=== PATIENT | female | born 1950 | race Caucasian/White ===

== ENCOUNTER 2020-03-11 17:40 | Inpatient (IN) | payer MEDICARE, SELFPAY ==
[2020-03-11] VITALS (7 sets, daily range): BP systolic 114–155; BP diastolic 54–79; PULSE 66–88; RESP 16–21; TEMP 36.2–36.8; O2SAT 95–100; BMI 56.5
--- NOTE | ~2020-03-11 | XR_ITS ---
EXAMINATION: XR chest 2V DATE: 03/11/2020 19:25 INDICATION: Shortness of breath. Lower limb edema. TECHNIQUE: frontal and lateral views of the chest were obtained. COMPARISON: Chest radiograph dated 01/01/2018 FINDINGS: Cardiomegaly. Mild interstitial and airspace opacities in the right mid to lower and left lower lung zones. Calcified nodules in the right midlung zone and calcified right hilar and mediastinal lymph no pee consistent with old granulomatous disease. No pleural effusion or pneumothorax. Mild thoracic spo ndylosis. Chronic T11 compression fracture. IMPRESSION: 1. Opacities in the right mid to lower and left lower lung zones which could represent asymmetric mil d pulmonary edema, pneumonia, atelectasis or some combination thereof. 2. Cardiomegaly. Reviewed, dictated and finalized at location A. IMPRESSION: 1. Opacities in the right mid to lower and left lower lung zones which could re present asymmetric mild pulmonary edema, pneumonia, atelectasis or some combina tion thereof. 2. Cardiomegaly.
--- NOTE | 2020-03-11 17:42 | ECG_ITS ---
Measurements Intervals [place] Rate: 70 P: AL: 0 QRS: 3 QRSD: 90 T: 19 QT: 360 QTc: 390 Interpretive Statements ATRIAL FIBRILLATION DELAYED PRECORDIAL R/S TRANSITION BORDERLINE T WAVE ABNORMALITY- INFERIOR LEADS BASELINE ARTIFACT- I, II, III, AVR ABNORMAL ECG Electronically Signed On 03-11-2020 19:45:32 CDT by Camron Jarrett D.O.
[2020-03-11 18:22] LABS: Basophils Absolute Auto 0.1 K/mm3 (0.0-0.1); Basophils Percent Auto 0.5 % (0.2-1.2); Eosinophils Absolute Auto 0.1 K/mm3 (0-0.3); Eosinophils Percent Auto 0.9 % (0-4.4); Hematocrit 35.4 % (37.0-47.0); Hemoglobin 12.1 g/dL (12.0-15.0); Immature Granulocyte Absolute 0.07 K/mm3 (0.00-0.031); Immature Granulocyte Percent A 0.6 % (0-0.5); Lymphocytes Absolute Auto 1.86 K/mm3 (0.9-3.2); Lymphocytes Percent Auto 16.6 % (18.3-44.2); Mean Corpuscular HGB Conc 34.2 g/dl (32-36); Mean Corpuscular Hemoglobin 29.4 pg (26-34); Mean Corpuscular Volume 86.1 fl (80-100); Mean Platelet Volume 9.4 fl (7.4-10.4); Neutrophils Absolute Auto 8.1 K/mm3 (1.3-6.7); Neutrophils Percent Auto 72.4 % (45.5-73.1); Platelet Count Result 301 k/mm3 (150-375); Red Blood Count 4.11 M/mm3 (4.2-5.4); Red Cell Distribution Width 13.6 % (11.5-14.5); White Blood Count 11.2 K/mm3 (4.5-10.0)
[2020-03-11 18:32] LABS: INR 1.3
[2020-03-11 18:33] LABS: Partial Thromboplastin Time 27.5 SECONDS (22.3-36.8)
[2020-03-11 18:34] LABS: Anion Gap 11 mmol/L (8-16); Blood Urea Nitrogen 14 mg/dL (7-17); Calcium 8.8 mg/dL (8.4-10.2); Carbon Dioxide 19 mmol/L (22-30); Chloride 92 mmol/L (98-107); Estimated CRCL calculation 84 ml/min; Estimated Glomerular Filt Rate > 60; Glucose 113 mg/dL (65-105); Potassium 4.2 mmol/L (3.4-5.0); Sodium 122 mmol/L (137-145)
[2020-03-11 18:46] LABS: Troponin I < 0.012 ng/mL (0.000-0.034)
[2020-03-11] MEDS: ASPIRIN 81 MG CHEWABLE TABLET 324 MG PO (19:06)
--- NOTE | 2020-03-11 19:14 | ED.CHESTPAIN ---
HPI - Chest Pain General Chief Complaint: Chest Pain Stated Complaint: chest pain with shortness of breath Time Seen by Provider: 03/11/20 19:02 Source: RN notes reviewed History of Present Illness HPI narrative: Patient presents emergency department from home for back pain. Patient states today she is had intermittent episodes of pain in between her shoulder blades. Pain described as burning in nature and only last several minutes and resolves when she belches. She denies any definitive chest pain. Does note mild associated intermittent shortness of breath with the symptoms and states that she does have a history of heart failure and is had swelling of her legs she denies any fevers or chills cough abdominal pain nausea vomiting or any other symptoms. She states currently she has no symptoms at this time Related Data Home Medications Medication Instructions Recorded Confirmed aspirin 81 mg tablet,delayed 81 mg PO DAILY 09/17/19 release mometasone 200 mcg/actuation HFA 1 inhalation INHALATION DAILY 09/17/19 aerosol inhaler diltiazem HCl 180 mg capsule,24 180 mg PO DAILY 03/10/20 hr,extended release acetaminophen [Tylenol] 325 mg PO ONCE 03/11/20 famotidine 10 mg PO DAILY 03/11/20 Allergies Allergy/AdvReac Type Severity Reaction Status Date / Time celecoxib Allergy Unknown Skin Verified 03/10/20 09:28 Reaction cephalexin Allergy Unknown tightness Verified 03/10/20 09:28 in throat guaifenesin Allergy Unknown Asthma Verified 03/10/20 09:28 naproxen Allergy Unknown Stomach Verified 03/10/20 09:28 ache Penicillins Allergy Unknown Anaphylactic Verified 03/10/20 09:28 Shock Sulfa (Sulfonamide Allergy Unknown Anaphylactic Verified 03/10/20 09:28 Antibiotics) Shock sulfamethizole Allergy Unknown Swelling Verified 03/10/20 09:28 vancomycin Allergy Unknown ALLERGY Verified 03/10/20 09:28 Review of Systems Review of Systems: Narrative: Gen.: Denies fevers or chills ENT: Denies congestion Respiratory: Reports mild shortness of breath CV: See HPI GI: Denies abdominal pain nausea, emesis or diarrhea denies burning, urgency, frequency or hematuria Musculoskeletal: Denies back pain or muscle pain Neuro: Denies numbness, tingling, weakness or focal weakness Skin: Denies rash Except as documented, all other systems reviewed and negative PMF Past Medical History Medical History (Updated 03/11/20 @ 20:18 by Alvarez Freedman DO) Asthma CHF (congestive heart failure), NYHA class I Chronic atrial fibrillation Social History Social History Smoking status: Never smoker Alcohol intake: never Gender identity (if verbalized by the patient): Female Exam Narrative: Exam Narrative: APPEARANCE: No acute distress, nontoxic, resting in bed EYES: EOMI HEENT: Normocephalic, atraumatic, OMM RESPIRATORY: No respiratory distress Clear to auscultation bilaterally with no rhonchi wheezing or rales. CARDIOVASCULAR: Irregular irregular without murmurs rubs or gallops. ABDOMINAL: Soft, nontender, nondistended, no rebound or guarding MUSCULOSKELETAl: Moves all extremities. No clubbing, cyanosis 3+ edema the bilateral lower extremities NEURO: Awake and alert. Following commands, speech normal, no focal deficits SKIN:: Warm, dry. No rashes lesions or abrasions PSYCHIATRIC: Normal affect/mood, Course Course Emergency Course: Patient states she is currently on spironolactone. Has a history of low sodium Discussed with Dr. link presentation work-up he agrees admission at this time. Request patient receive Lasix 20 mg IV at this time Discussed with patient and family results of workup and diagnosis. Discussed need for admission. Patient and family understand and agree to current treatment plan Vital Signs Vital signs: Vital Signs Temperature 97.2 F L 03/11/20 18:08 Pulse Rate 84 03/11/20 18:08 Respiratory Rate 18 03/11/20 18:08 Blo
[2020-03-11 19:30] LABS: Alanine Aminotransferase 20 U/L (4-35); Albumin Level 3.9 g/dL (3.5-5.1); Alkaline Phosphatase 80 U/L (38-126); Aspartate Amino Transferase 29 U/L (14-36); Bilirubin,Total 0.3 mg/dL (0.2-1.3)
[2020-03-11 19:40] LABS: NT Pro B Type Natriuretic Pept 2120 PG/ML (5-100)
[2020-03-11] MEDS: FUROSEMIDE INJ 40 MG/4 ML VIAL 20 MG IV PUSH (21:05)
[2020-03-11 21:33] LABS: Troponin I < 0.012 ng/mL (0.000-0.034)
--- NOTE | 2020-03-11 21:59 | ADMGEN ---
This patient, Madeline Richards, was admitted to 2 Medical Room 258-01 at 2150. Patient/family oriented to hospital policies and general routines including ID bracelet, bed and alarms, visiting hours, pain management, procedures, bathroom and other care routines, personal items, smoking policy, room service/diet, and visiting hours. Valuables list has been completed. Information on how to activate the Rapid Response Team has been discussed. Patient/Family are encouraged to report perceived risks to care and to ask questions if they do not understand what they are told or what they should do.
[2020-03-12] VITALS (10 sets, daily range): BP systolic 104–140; BP diastolic 56–77; PULSE 69–83; RESP 16–18; TEMP 35.9–36.4; O2SAT 96–100
--- NOTE | 2020-03-12 | ECHO_ITS ---
Patient Info Name: Madeline Richards Age: 69 years : 1950 Gender: Female Ht: 65 in Wt: 339 lbs BSA: 2.76 m2 HR: 70 bpm BP: 132 / 54 mmHg Heart Rhythm: Atrial Fibrillation Technical Quality: Fair Exam Date: 03/12/2020 11:14 AM Exam Location: [facility] Pulmonary Exam Room: [facility] Patient Status: Inpatient Admit Date: 03/12/2020 Staff Ordering Physician: Julia Muñoz DO Line Servicer: Sue Fernandez RDCS Attending Provider: Rody Cruz PA-C Referring Physician: Wanda MONZON; Exam Type: CA echo doppler color flow Study Info Indications - CHF Complete two-dimensional, color flow and Doppler transthoracic echocardiogram is performed. Summary 1. Left ventricular chamber dimension is normal. 2. Left ventricular systolic function is normal, estimated at 65-70%. 3. The left ventricular diastolic function is abnormal. 4. E/e' 11 is mildly elevated. 5. Patient is in atrial fibrillation. 6. Left atrial chamber dimension is severely enlarged. 7. Right atrial chamber dimension is mildly enlarged. 8. There is mild to moderate mitral valve regurgitation. 9. There is mild to moderate tricuspid valve regurgitation. 10. No pulmonary hypertension, estimated pulmonary arterial systolic pressure is 28 mmHg. 11. There is trace pulmonic regurgitation. Left Ventricle E/e' 11 is mildly elevated. Patient is in atrial fibrillation. Left ventricular chamber dimension is normal. Left ventricular systolic function is normal, estimated at 65-70%. The left ventricular diastolic function is abnormal. Right Ventricle Right ventricular chamber dimension is normal. Right ventricular systolic function is normal. Left Atria Left atrial chamber dimension is severely enlarged. Right Atria Right atrial chamber dimension is mildly enlarged. Aortic Valve The aortic valve is trileaflet. There is no aortic valve stenosis. There is no aortic valve regurgitation. Pulmonic Valve There is trace pulmonic regurgitation. Mitral Valve There is no mitral valve stenosis. There is mild to moderate mitral valve regurgitation. Tricuspid Valve There is mild to moderate tricuspid valve regurgitation. No pulmonary hypertension, estimated pulmonary arterial systolic pressure is 28 mmHg. Pericardium/Pleural There is no pericardial effusion. Inferior Vena Cava Normal inferior vena cava with >50% collapse upon inspiration consistent with normal right atrial pressure, 5 mmHg. Aorta The aortic root size at the sinus of Valsalva is normal. Left Ventricular Outflow Tract Name Value Normal LVOT 2D LVOT Diameter 2.0 cm LVOT Doppler LVOT Peak Gradient 5 mmHg LVOT Mean Gradient 4 mmHg LVOT VTI 23 cm LVOT VTI/AV VTI Ratio 0.9 LVOT Stroke Volume 68 ml LVOT CO 16.3 l/min LVOT CI 5.9 l/min/m2 Pulmonic Valve Name
[2020-03-12 00:23] LABS: Troponin I < 0.012 ng/mL (0.000-0.034)
[2020-03-12 05:11] LABS: Basophils Percent Auto 0.5 % (0.2-1.2); Eosinophils Absolute Auto 0.1 K/mm3 (0-0.3); Eosinophils Percent Auto 1.6 % (0-4.4); Hemoglobin 10.9 g/dL (12.0-15.0); Immature Granulocyte Absolute 0.04 K/mm3 (0.00-0.031); Immature Granulocyte Percent A 0.5 % (0-0.5); Lymphocytes Absolute Auto 2.15 K/mm3 (0.9-3.2); Lymphocytes Percent Auto 24.6 % (18.3-44.2); Mean Corpuscular HGB Conc 34.1 g/dl (32-36); Mean Corpuscular Hemoglobin 29.4 pg (26-34); Mean Corpuscular Volume 86.3 fl (80-100); Mean Platelet Volume 9.2 fl (7.4-10.4); Monocytes Absolute Auto 1.3 K/mm3 (0.1-0.6); Monocytes Percent Auto 14.3 % (2.6-8.5); Neutrophils Absolute Auto 5.1 K/mm3 (1.3-6.7); Neutrophils Percent Auto 58.5 % (45.5-73.1); Platelet Count Result 271 k/mm3 (150-375); Red Blood Count 3.71 M/mm3 (4.2-5.4); Red Cell Distribution Width 13.5 % (11.5-14.5); White Blood Count 8.7 K/mm3 (4.5-10.0)
--- NOTE | 2020-03-12 05:29 | PM.IMHP ---
H&P: HPI History of Present Illness Date/Time: 03/12/20 05:29 Chief complaint: chest pain, shortness of breath Narrative: Madeline Richards is a 69 year old female with a past medical history hypertension, atrial fibrillation on chronic anticoagulation, and obstructive sleep apnea who presented to the ER from home with shortness of breath, chest pain and worsening lower extremity edema. the patient had been seen and evaluated by her primary care physician on March 10. At that time she had been unable to use her CPAP for about a week. She had realized something was wrong with her CPAP and had gotten a replacement CPAP from her [employer] but had only been using it for couple of days. Despite starting back on her CPAP she was still having short of breath with dyspnea on exertion. despite using her CPAP she was having fatigue, paroxysmal nocturnal dyspnea, and orthopnea. She has also been having increased weight gain. She has not been having any wheezing. She has had a dry cough without fevers or chills. Her last echocardiogram was back in 2016 and demonstrated grade 1 diastolic dysfunction. she had reported a twinge of left-sided chest discomfort that only lasted a minute or 2. She was also having intermittent pain between her shoulder blades that she is so CH with her history of costochondritis and GERD. At the time of her visit her primary care physician discontinued her Cardizem and irbasartan and changed her to metoprolol ER and Benicar. she did not realize that she was was the stop her Cardizem and had still been taking the doses. She has been on diuretic therapy with spironolactone for quite some time But her spironolactone had been decreased in September down to 25 mg b.i.d. and was just increased back up to 50 mg b.i.d. during her doctor's appointment. She related some of her continuing symptoms to being under increased stress at work. She had been laid off since September in just returned to work 2 days ago. In those 2 days she has been working extremely long hours With new restrictions and regulations causing her more stress. she reports that she has never been in good health. She attributes her poor health to multiple strep infections when she was a teenager. She also reports a nervous stomach but denies having any issues with frequent diarrhea infectious she will go to her 3 days without having a bowel movement. She admits to eating a poor diet. She has not been having any fevers or chills. Review of Systems Review of Systems: Narrative: 12 systems were reviewed with pertinent positives and negatives per HPI. Except as documented in the HPI, all other systems were reviewed and are negative. [facility] Past Medical History Medical History (Updated 03/12/20 @ 07:51 by Julia Muñoz DO) Asthma Chronic atrial fibrillation on chronic anticoagulation with Eliquis Diastolic dysfunction noted on echocardiogram from 2017 Essential hypertension Lumbar spondylosis Morbid obesity Obstructive sleep apnea Family History Family History Father Hypertension Coronary artery disease Mother Lung cancer Breast cancer Cervical cancer Social History Social History Smoking status: Never smoker Alcohol intake: never Substance use: never Substance use type: does not use Gender identity (if verbalized by the patient): Female Spiritual care concerns: No Meds Home Medications and Allergies Home Medications Medication Instructions Recorded Confirmed Type albuterol sulfate 90 mcg/actuation 2 puff INHALATION Q4H PRN #18 gm 07/25/19 03/11/20 Rx aerosol inhaler apixaban 5 mg tablet See Rx Instructions PO BID #180 09/17/19 03/11/20 Rx tablet aspirin 81 mg tablet,delayed 81 mg PO DAILY 09/17/19 03/11/20 History release mometasone 200 mcg/actuation HFA 1 inhalation INHALATION DAILY 09/17/19 0
[2020-03-12 05:31] LABS: Anion Gap 8 mmol/L (8-16); Blood Urea Nitrogen 11 mg/dL (7-17); Calcium 8.5 mg/dL (8.4-10.2); Carbon Dioxide 22 mmol/L (22-30); Chloride 94 mmol/L (98-107); Estimated CRCL calculation 102 ml/min; Estimated Glomerular Filt Rate > 60; Glucose 95 mg/dL (65-105); Potassium 3.8 mmol/L (3.4-5.0); Sodium 124 mmol/L (137-145)
--- NOTE | 2020-03-12 06:07 | PHAR ---
PHARMACY VERIFIED: MOMETASONE FUROATE (ASMANEX) HFA 100 MCG/ACTUATION INHALE 4 PUFFS TWICE DAILY - RINSE MOUTH AFTER USE OK TO USE HOME MED
[2020-03-12] MEDS: ALBUTEROL SULFATE (*SP) AEROSOL 1 PUFF 2 PUFF INHALATION ×2 (08:39→17:13)
[2020-03-12] MEDS: FUROSEMIDE INJ 40 MG/4 ML VIAL IV PUSH (08:46)
[2020-03-12] MEDS: SPIRONOLACTONE 50 MG TABLET PO ×2 (08:48→16:54)
[2020-03-12] MEDS: METOPROLOL SUCCINATE EXT REL 25 MG TABCR PO (08:48)
[2020-03-12] MEDS: OLMESARTAN MEDOXOMIL 20 MG TABLET PO (08:48)
[2020-03-12] MEDS: FAMOTIDINE 10 MG TABLET PO (08:48)
[2020-03-12] MEDS: APIXABAN 5 MG TABLET PO ×2 (08:48→16:54)
[2020-03-12] MEDS: ASPIRIN 81 MG ENTERIC TABLET PO (08:48)
--- NOTE | 2020-03-12 16:14 | PM.IMPN ---
Progress Note: A&P Assessment and Plan (1) Acute hyponatremia: Code(s): E87.1 - Hypo-osmolality and hyponatremia Status: Acute Assessment and Plan: The patient reports a long history of hyponatremia. Prior labs show hyponatremia back to 2017. I suspect there is a component of acute on chronic hyponatremia given the patient's fluid status, this is probably hypervolemic hyponatremia. The patient's sodium did improve slightly after receiving 20 mg of IV Lasix last night. Continue IV Lasix 40 mg daily Monitor sodium levels closely (2) CHF (congestive heart failure): Qualifiers: Heart failure chronicity: acute on chronic Heart failure type: diastolic Qualified Code(s): I50.33 - Acute on chronic diastolic (congestive) heart failure Code(s): I50.9 - Heart failure, unspecified Status: Acute Assessment and Plan: Echo shows normal EF with abnormal diastolic function. CXR shows cardiomegaly and possible mild pulmonary edema. BNP is elevated at 2120. continue IV Lasix 40 mg daily continue spironolactone Monitor strict I&O's as well as daily weights. heart healthy diet (3) Benign essential HTN: Code(s): I10 - Essential (primary) hypertension Status: Acute Assessment and Plan: blood pressure was reviewed today and is stable. Continue Benicar and metoprolol monitor blood pressures closely (4) Obstructive sleep apnea: Code(s): G47.33 - Obstructive sleep apnea (adult) (pediatric) Status: Acute Assessment and Plan: she has not been using her CPAP machine for about a week as it has been broken. No evidence of pulmonary hypertension on echo. Continue CPAP titrated to home settings (5) Papule of skin: Code(s): R23.8 - Other skin changes Status: Acute Assessment and Plan: Patient has approximately 5 mm erythematous, raised papule of the left breast at approximately 6:00 position. There is no drainage or pus. The area is nontender. There is no evidence of infection. Patient reports she gets these occasionally and they typically go away on their own. Continue to monitor. Recommend outpatient follow-up with PCP. Subjective Date/time seen: 03/12/20 16:14 Interval history: Date of service: 03/12/2020 Patient is a 69-year-old female with a history of asthma, RUI, and diastolic dysfunction here for CHF exacerbation. Patient is feeling better this time. Her shortness of breath has improved. She has an occasional dry cough. She reported MISTRY when ambulating to the bathroom and grooming herself. She denies orthopnea. She denies chest pain, palpitations, dizziness, or lightheadedness. She denies abdominal pain, nausea, vomiting, or diarrhea. Her appetite has been good. She continues to complain of swelling in her legs but denies any pain. She complains of a bump on the underside of her left breast. She states I get these all the time. They usually disappear uneventfully. Review of Systems Review of Systems: Narrative: A 12 point review of systems was reviewed with pertinent positives and negatives as per HPI. Exam Narrative: Exam Narrative: Ms. Richards is a 69-year-old morbidly obese female who is lying supine in bed. She appears comfortable and is in no acute respiratory distress. HR 74 BP 140/62, R 16, T 97.5? 100% on room air Neuro: awake, alert and oriented x4, speech clear, no focal neuro deficits noted HEENMT: normocephalic, atraumatic, EOMI, sclerae anicteric, moist oral mucosa, tongue midline Neck: supple, no lymphadenopathy Respiratory: diminished breath sounds, faint inspiratory crackles in right lung base, no wheezes, nonlabored breathing Cardio: regular rate, regular rhythm with S1-S2 Abdomen: obese, normoactive bowel sounds, soft, nontender Extremities: 3+ pitting edema, no erythema, cyanosis, or clubbing, DP pulses nonpalpable secondary to edema Skin:
[2020-03-13] VITALS: PULSE 64
[2020-03-13 04:00] VITALS: PULSE 82
[2020-03-13 06:00] VITALS: BP 116/57; PULSE 82; RESP 18; TEMP 36.1; O2SAT 99
[2020-03-13 06:08] LABS: Hemoglobin 11.3 g/dL (12.0-15.0); Mean Corpuscular HGB Conc 34.2 g/dl (32-36); Mean Corpuscular Hemoglobin 29.5 pg (26-34); Mean Corpuscular Volume 86.2 fl (80-100); Mean Platelet Volume 9.4 fl (7.4-10.4); Platelet Count Result 267 k/mm3 (150-375); Red Blood Count 3.83 M/mm3 (4.2-5.4); Red Cell Distribution Width 13.5 % (11.5-14.5); White Blood Count 7.8 K/mm3 (4.5-10.0)
[2020-03-13 06:24] LABS: Anion Gap 9 mmol/L (8-16); Blood Urea Nitrogen 11 mg/dL (7-17); Calcium 8.3 mg/dL (8.4-10.2); Carbon Dioxide 21 mmol/L (22-30); Chloride 96 mmol/L (98-107); Estimated CRCL calculation 102 ml/min; Estimated Glomerular Filt Rate > 60; Glucose 94 mg/dL (65-105); Potassium 3.9 mmol/L (3.4-5.0); Sodium 126 mmol/L (137-145)
[2020-03-13 08:00] VITALS: PULSE 79
[2020-03-13 08:40] VITALS: PULSE 77
[2020-03-13] MEDS: ASPIRIN 81 MG ENTERIC TABLET PO (08:40)
[2020-03-13] MEDS: FAMOTIDINE 10 MG TABLET PO (08:40)
[2020-03-13] MEDS: METOPROLOL SUCCINATE EXT REL 25 MG TABCR PO (08:40)
[2020-03-13] MEDS: OLMESARTAN MEDOXOMIL 20 MG TABLET PO (08:40)
[2020-03-13] MEDS: SPIRONOLACTONE 50 MG TABLET PO (08:40)
[2020-03-13] MEDS: FUROSEMIDE INJ 40 MG/4 ML VIAL IV PUSH (08:41)
[2020-03-13] MEDS: APIXABAN 5 MG TABLET PO (08:41)
[2020-03-13] MEDS: ACETAMINOPHEN 500 MG TABLET 1000 MG PO (10:41)
--- NOTE | 2020-03-13 10:53 | PM.DS ---
DS: Admitting Diagnosis Admitting Diagnosis Admitting Diagnosis: chest pain, shortness of breath DS: Discharge Diagnosis Discharge Diagnosis (1) CHF (congestive heart failure): Qualifiers: Heart failure chronicity: acute on chronic Heart failure type: diastolic Qualified Code(s): I50.33 - Acute on chronic diastolic (congestive) heart failure Code(s): I50.9 - Heart failure, unspecified Status: Acute Assessment and Plan: Echo done on 03/12/20 showed normal EF with abnormal diastolic function. CXR showed cardiomegaly and possible mild pulmonary edema. BNP was elevated at 2120. She was diuresed with IV Lasix and her volume status improved. At this time, will have patient weigh herself daily for the next week and will defer addition of Lasix to PCP at follow up appointment in 1 week. She was instructed on daily weights. Continue BID spironolactone. (2) Acute hyponatremia: Code(s): E87.1 - Hypo-osmolality and hyponatremia Status: Acute Assessment and Plan: The patient reports a long history of hyponatremia. Prior labs show hyponatremia back to 2016, possibly secondary to spironolactone use. I suspect there is a component of acute on chronic hyponatremia given the patient's fluid status, this is probably hypervolemic hyponatremia. Sodium improved with diuresis. Repeat sodium on 03/16 as an outpatient. (3) Benign essential HTN: Code(s): I10 - Essential (primary) hypertension Status: Acute Assessment and Plan: Blood pressures were reviewed daily and remained stable. Continue benicar and metoprolol. (4) Obstructive sleep apnea: Code(s): G47.33 - Obstructive sleep apnea (adult) (pediatric) Status: Acute Assessment and Plan: She had not been using her CPAP machine for about 1 week as it had been broken. She received a temporary replacement while hers was being serviced. I stressed the importance of using her CPAP every night. No evidence of pulmonary hypertension on echo. (5) Papule of skin: Code(s): R23.8 - Other skin changes Status: Acute Assessment and Plan: Patient had approximately 5 mm erythematous, raised papule of the left breast at approximately 6:00 position without drainage or purulence. The area was nontender and there was no evidence of infection. Patient reports she gets these occasionally and they typically go away on their own. I encouraged her to discuss this with her PCP and possible dermatology evaluation given recurrence. Encouraged her to stay up to date on screening mammograms. DS: Summary Hospital Course Reason for hospitalization: Shortness of breath Hospital Course: Date of admission: 03/11/2020 Date of discharge: 03/13/2020 Madeline Richards is a 69-year-old female with a history of asthma, atrial fibrillation, diastolic dysfunction, HTN, and RUI on CPAP who presented to the emergency department on 03/11/2020 with complaints of shortness of breath and discomfort in her back and shoulders. At presentation, vital signs stable, WBC 11.2, sodium 122, glucose 113, BNP 2120, troponin <0.012, and CXR showing mild pulmonary edema and cardiomegaly. She was admitted to the hospitalist service for further evaluation and management. Please see above for further details. She was diuresed with IV Lasix and her volume overload improved. Her shortness of breath subsided and she began feeling much better. Sodium increased and will be monitored as an outpatient. She was eager for discharge home. Given her overall improvement and stable respiratory status, she was determined to no longer require inpatient care. We discussed worrisome signs and symptoms for which to return and importance of proper follow-up. She is aware that she needs to have her blood drawn in several days. All of her questions were answered. She was discharged home in hemodynamically stable condition with her daughter. Status at Disc
== END 2020-03-13 12:35 | disposition home or self-care (01) | DRG 292 ==
LOC: ANHED 20:24 → ANH2MED 20:48
PROVIDERS: Emergency Medicine; Physician Assistant; Admitting Provider Internal Medicine; Emergency Provider Emergency Medicine; PCP Family Medicine; Visit Provider Internal Medicine
DX: I11.0 Hypertensive heart disease with heart failure (principal); E87.1 Hypo-osmolality and hyponatremia; Z68.43 Body mass index [BMI] 50.0-59.9, adult; I48.20 Chronic atrial fibrillation, unspecified; I50.33 Acute on chronic diastolic (congestive) heart failure; G47.33 Obstructive sleep apnea (adult) (pediatric); R23.8 Other skin changes; J45.909 Unspecified asthma, uncomplicated; E66.01 Morbid (severe) obesity due to excess calories; Z79.01 Long term (current) use of anticoagulants; M47.896 Other spondylosis, lumbar region
CPT/HCPCS: 36415; 71046; 80048; 80076; 83880; 84484; 85025; 85027; 85610; 85730; 93005; 93306; 94640; 96374; 99285; A9270; J1940

== ENCOUNTER 2020-06-23 07:54 | Outpatient (RCR) | payer MEDICARE, SELFPAY ==
[2020-04-09 14:39] VITALS: BMI 49.9
== END 2020-07-08 23:59 | disposition home or self-care (01) ==
LOC: ANHWOC 07:54
PROVIDERS: PCP Family Medicine; Visit Provider Family Medicine
DX: L98.499 Non-pressure chronic ulcer of skin of other sites with unspecified severity (principal)
CPT/HCPCS: 99212; 99213; A9270; G0463

== ENCOUNTER → 2020-11-08 13:20 | Outpatient (CLI) | payer MEDICARE, SELFPAY ==
--- NOTE | ~2020-11-08 | XR_ITS ---
XR chest 2V DATE: 11/08/2020 13:43 INDICATION: Chest pain TECHNIQUE: 2 views COMPARISON: 03/11/2020 AP and lateral chest FINDINGS: Mild cardiomegaly. Mild aortic unfolding. Old pulmonary granulomatous disease. There is minimal atelectasis at the lung bases. No pulmonary consolidation, pleural effusion, pulmona ry congestion, adenopathy or pneumothorax is evident. Diffuse osteopenia. IMPRESSION: Cardiomegaly Mild bibasilar atelectasis Old pulmonary granulomatous disease Reviewed, dictated and finalized at location A.
--- NOTE | ~2020-11-08 | XR_ITS ---
XR abdomen/kub 1V DATE: 11/08/2020 13:44 INDICATION: Unspecified abdominal pain TECHNIQUE: AP projection, 2 views COMPARISON: None FINDINGS: Approximately 3 cm calcified uterine fibroid, lower left pelvis. The psoas shadows are intact. No visceromegaly is evident. The bowel gas pattern is nonspecific, without evidence of obstruction. Diffuse osteopenia. Fracture deformity of L2. Degenerative changes of the lumbar spine. IMPRESSION: No evidence of bowel obstruction Reviewed, dictated and finalized at Location A. Reviewed, dictated and finalized at location A.
== END ==
PROVIDERS: PCP Physician Assistant; Visit Provider Physician Assistant
DX: R07.9 Chest pain, unspecified (principal); R10.9 Unspecified abdominal pain; I51.7 Cardiomegaly; R91.8 Other nonspecific abnormal finding of lung field
CPT/HCPCS: 71046; 74018

== ENCOUNTER 2020-11-09 18:34 | Inpatient (IN) | payer MEDICARE, SELFPAY ==
--- NOTE | ~2020-11-09 | CT_ITS ---
EXAMINATION: CT abdomen pelvis w con DATE: 11/09/2020 22:07 INDICATION: Pancreatitis TECHNIQUE: Computed tomography (CT) of the abdomen and pelvis was performed with 100 cc Omnipaque 350 intravenous contrast. The dose-length product was 1502.46 mGy-cm. Automated exposure control and ite rative reconstruction technique were employed. COMPARISON: None. FINDINGS: There is focal pleural-based soft tissue of the left lower lobe laterally, image 19 measuri ng 2 x 0.9 cm. There is coarse peripheral interstitial changes, likely chronic fibrosis. Cardiomegaly . No significant pleural or pericardial effusion. Small hiatal hernia. No complex appearance to the g allbladder which may represent stones, sludge or mass. Calcified granulomas in the spleen. There is s ubtle peripancreatic fatty infiltration, suspicious for acute pancreatitis. The kidneys are unremarka ble. Nonobstructive bowel gas pattern. Small fat-containing umbilical hernia. Calcified uterine fibro id noted. No free air or free fluid. Mild osteoarthritis of the hips. There is an age-indeterminate s uperior endplate compression fracture of L2 and T11. Moderate lower thoracic and lumbar spondylosis. Grade 1 degenerative spondylolisthesis at L4-5. No free air or free fluid. IMPRESSION: 1. Pleural-based mass left lower lobe laterally which may represent sequela of previous trauma/infect ion, although malignancy is not excluded. 2: Coarse peripheral interstitial lung disease, likely chronic interstitial fibrosis. 3: Findings consistent with mild acute pancreatitis. 4: Complex appearance to the gallbladder containing soft tissue which may represent stones, sludge o r underlying mass. 5: Age-indeterminate superior endplate compression fractures of T11 and L2. Reviewed, dictated and finalized at location A. IMPRESSION: 1. Pleural-based mass left lower lobe laterally which may represent sequela of previous trauma/infection, although malignancy is not excluded. 2: Coarse peripheral interstitial lung disease, likely chronic interstitial fib rosis. 3: Findings consistent with mild acute pancreatitis. 4: Complex appearance to the gallbladder containing soft tissue which may repr esent stones, sludge or underlying mass. 5: Age-indeterminate superior endplate compression fractures of T11 and L2.
--- NOTE | ~2020-11-09 | US_ITS ---
EXAMINATION: US abdomen limited DATE: 11/10/2020 08:51 INDICATION: Cholelithiasis. TECHNIQUE: Multiple grayscale and Doppler ultrasound images of the abdomen were obtained. COMPARISON: CT abdomen and pelvis 11/09/2020 FINDINGS: The visualized portions of the head, body, and tail of the pancreas are normal. The liver i s normal without focal lesion. There is normal flow in main portal vein. The gallbladder is normal in size and contains gallstones. Gallbladder wall thickening is noted. There was no sonographic Palomino sign. The common duct is normal and measures 7 mm. IMPRESSION: 1. Cholelithiasis. Gallbladder wall thickening is likely secondary to chronic cholecystitis Reviewed, dictated and finalized at location B. IMPRESSION: 1. Cholelithiasis. Gallbladder wall thickening is likely secondary to chronic c holecystitis
[2020-11-09 19:00] VITALS: BP 134/52; PULSE 98; RESP 17; TEMP 36.6; O2SAT 100
[2020-11-09 19:30] LABS: Basophils Percent Auto 0.3 % (0.2-1.2); Eosinophils Absolute Auto 0.1 K/mm3 (0-0.3); Hematocrit 36.7 % (37.0-47.0); Hemoglobin 12.5 g/dL (12.0-15.0); Immature Granulocyte Absolute 0.06 K/mm3 (0.00-0.031); Immature Granulocyte Percent A 0.4 % (0-0.5); Lymphocytes Absolute Auto 1.36 K/mm3 (0.9-3.2); Lymphocytes Percent Auto 9.8 % (18.3-44.2); Mean Corpuscular HGB Conc 34.1 g/dl (32-36); Mean Corpuscular Hemoglobin 29.3 pg (26-34); Mean Corpuscular Volume 85.9 fl (80-100); Mean Platelet Volume 10.4 fl (7.4-10.4); Monocytes Absolute Auto 1.7 K/mm3 (0.1-0.6); Monocytes Percent Auto 12.1 % (2.6-8.5); Neutrophils Absolute Auto 10.6 K/mm3 (1.3-6.7); Neutrophils Percent Auto 76.4 % (45.5-73.1); Platelet Count Result 241 k/mm3 (150-375); Red Blood Count 4.27 M/mm3 (4.2-5.4); Red Cell Distribution Width 14.2 % (11.5-14.5); White Blood Count 13.9 K/mm3 (4.5-10.0)
[2020-11-09 19:40] LABS: INR 1.3; Prothrombin Time 16.4 Seconds (11.1-14.7)
[2020-11-09 19:41] LABS: Partial Thromboplastin Time 36.5 SECONDS (22.3-36.8)
[2020-11-09 19:50] LABS: Alanine Aminotransferase 174 U/L (4-35); Albumin Level 3.9 g/dL (3.5-5.1); Alkaline Phosphatase 250 U/L (38-126); Anion Gap 10 mmol/L (8-16); Aspartate Amino Transferase 124 U/L (14-36); Blood Urea Nitrogen 17 mg/dL (7-17); Carbon Dioxide 20 mmol/L (22-30); Chloride 93 mmol/L (98-107); Estimated CRCL calculation 75 ml/min; Estimated Glomerular Filt Rate > 60; Glucose 106 mg/dL (65-105); Potassium 3.5 mmol/L (3.4-5.0); Sodium 123 mmol/L (137-145)
[2020-11-09 20:16] LABS: Lipase 2045 U/L (23-300)
--- NOTE | 2020-11-09 20:36 | ED.RECABL ---
HPI - Recheck/Abnormal Lab/Rx General Chief Complaint: Recheck/Abnormal Lab/Rx Stated Complaint: abdnormal labs Time Seen by Provider: 11/09/20 20:01 Source: patient Mode of arrival: ambulatory Limitations: no limitations History of Present Illness HPI narrative: This is a 70 year old female with history of CHF, hypertension, GERD, hiatal hernia who presents for evaluation of abnormal labs. Patient was evaluated by Dr. Jain and she had blood drawn yesterday for evaluation orange urine with right flank pain. She started noticing her urine was orange on Sunday. She also reports mid back pain, right flank pain that radiates across her abdomen . This pain has been presents for a while but reports pain has been worse since Sunday. She also reports low grade fever 100.4 F yesterday. She denies cough, sob, or other urinary symptoms. She reports chronic issues with nausea with eating. MD complaint: abnormal lab Related Data Home Medications Medication Instructions Recorded Confirmed aspirin 81 mg tablet,delayed 81 mg PO DAILY 09/17/19 11/10/20 release acetaminophen [Tylenol Extra 1,000 mg PO Q6H PRN 03/11/20 11/10/20 Strength] famotidine 10 mg PO DAILY 03/11/20 11/10/20 Eliquis 5 mg PO DAILY 11/10/20 11/10/20 spironolactone 50 mg PO DAILY 11/10/20 11/10/20 tramadol 50 mg PO Q6H PRN 11/10/20 11/10/20 Allergies Allergy/AdvReac Type Severity Reaction Status Date / Time celecoxib Allergy Unknown Skin Verified 11/10/20 01:52 Reaction cephalexin Allergy Unknown tightness Verified 11/10/20 01:52 in throat guaifenesin Allergy Unknown Asthma Verified 11/10/20 01:52 Penicillins Allergy Unknown Anaphylactic Verified 11/10/20 01:52 Shock Sulfa (Sulfonamide Allergy Unknown Anaphylactic Verified 11/10/20 01:52 Antibiotics) Shock sulfamethizole Allergy Unknown Swelling Verified 11/10/20 01:52 vancomycin Allergy Unknown ALLERGY Verified 11/10/20 01:52 naproxen AdvReac Unknown Stomach Verified 11/10/20 01:52 ache Review of Systems Review of Systems: All systems reviewed & are unremarkable except as noted in HPI and below PMFSH Past Medical History Medical History Asthma Chronic atrial fibrillation on chronic anticoagulation with Eliquis Diastolic dysfunction noted on echocardiogram from 2017 Essential hypertension Lumbar spondylosis Morbid obesity Obstructive sleep apnea Surgical History Surgical History H/O section Family History Family History Father Coronary artery disease Hypertension Lymphoma Mother Cervical cancer Breast cancer Lung cancer Social History Social History Smoking status: Never smoker Alcohol intake: never Substance use: never Substance use type: does not use Living arrangements: alone Occupation/Education: retired Gender identity (if verbalized by the patient): Female Spiritual care concerns: No Exam Const: General: no acute distress and alert Nutritional Appearance: obese Orientation/consciousness: patient oriented x3 Eyes: EOM: EOMs intact bilaterally Resp: Effort & Inspection: normal respiratory effort and no retractions Auscultation: clear to auscultation bilaterally Cardio: Rate: regular rate Rhythm: regular rhythm Heart sounds: no murmurs GI: GI Palp: Yes Soft to palpation, Yes Tenderness to palpation present (GI) (epigastric) and No Guarding due to palpation present (GI) Auscultation: normal bowel sounds Skin: General skin exam: normal color Rashes: no rashes Neuro: General: patient oriented x3, moves all extremities and CN's II-XI intact bilaterally Psych: Mental Status: mental status grossly normal Affect: normal affect Course Reevaluation(s) Reevaluation #1: I boubacar
--- NOTE | 2020-11-09 20:53 | ECG_ITS ---
Measurements Intervals [place] Rate: 94 P: IN: 0 QRS: -33 QRSD: 86 T: -35 QT: 313 QTc: 393 Interpretive Statements ATRIAL FIBRILLATION VENTRICULAR PREMATURE COMPLEX LOW QRS VOLTAGE IN LIMB LEADS BORDERLINE ST-T WAVE ABNORMALITY- ANT/INF LEADS BASELINE ARTIFACT- I, II, III, AVR, AVL, AVF, V1, V3, V5-V6 ABNORMAL ECG Electronically Signed On 11-10-2020 7:17:25 CDT by Camron Jarrett D.O.
[2020-11-09 21:33] VITALS: BP 155/82; PULSE 102; RESP 19; O2SAT 100
--- NOTE | 2020-11-09 21:36 | PC.NURSE ---
Called CT for pt. Scan. they states they will be down shortly.
[2020-11-09] MEDS: ONDANSETRON INJ 4 MG/2 ML VIAL IV PUSH (22:10)
[2020-11-09 22:42] VITALS: BP 153/75; PULSE 99; RESP 19; O2SAT 97
[2020-11-10] VITALS (8 sets, daily range): BP systolic 118–148; BP diastolic 61–104; PULSE 84–112; RESP 16–18; TEMP 36–36.6; O2SAT 95–100; BMI 51.6
[2020-11-10] MEDS: metroNIDAZOLE 500 MG/ISO 100ML 500 MG/100 ML BAG 100 MG IVPB (01:04)
[2020-11-10] MEDS: SODIUM CHLORIDE 0.9% IV 1,000 ML 999 ML IV CONT (01:05)
--- NOTE | 2020-11-10 01:35 | ADMGEN ---
This patient, Madeline Richards, was admitted to Medical Room 341-01. Patient/family oriented to hospital policies and general routines including ID bracelet, bed and alarms, visiting hours, pain management, procedures, bathroom and other care routines, personal items, smoking policy, room service/diet, and visiting hours. Information on how to activate the Rapid Response Team has been discussed. Patient/Family are encouraged to report perceived risks to care and to ask questions if they do not understand what they are told or what they should do.
[2020-11-10] MEDS: SODIUM CHLORIDE 0.9% IV 1,000 ML 125 ML IV CONT (02:51)
--- NOTE | 2020-11-10 03:55 | PM.IMHP ---
H&P: HPI History of Present Illness Date/Time: 11/10/20 03:55 Chief Complaint: Right flank pain with abnormal labs Narrative: This is a 70-year-old morbidly obese female with known history of congestive heart failure, asthma, hypertension, and GERD who presented to the hospital for epigastric pain in association with abnormal labs that were found by her primary care doctor yesterday. The patient was seen at her PCPs office secondary to orange urine and right flank pain yesterday. The patient was complaining of epigastric pain that radiated towards her right flank and towards the middle of her back. She also had a low-grade fever of 100.4? F yesterday. The patient has been able to tolerate food intake and her last meal was yesterday around lunchtime. Her primary care doctor told her that her liver enzymes were abnormal and sent her to the hospital for evaluation. Routine labs were obtained in the emergency room yesterday which demonstrated an elevated lipase level of 2045 and cholestatic pattern of transaminitis. CT abdomen pelvis demonstrated mild acute pancreatitis. ER provider has consulted general surgery. We been asked to admit the patient to the hospital for her acute pancreatitis. Review of Systems Review of Systems: All systems reviewed & are unremarkable except as noted in HPI and below PMFSH Past Medical History Medical History Asthma Chronic atrial fibrillation on chronic anticoagulation with Eliquis Diastolic dysfunction noted on echocardiogram from 2017 Essential hypertension GERD (gastroesophageal reflux disease) Hiatal hernia Lumbar spondylosis Morbid obesity Obstructive sleep apnea Surgical History Surgical History H/O section x 2 Family History Family History Father Coronary artery disease Hypertension Lymphoma Gallbladder disease Mother Cervical cancer Breast cancer Lung cancer Social History Social History Smoking status: Never smoker Alcohol intake: never Substance use: never Substance use type: does not use Living arrangements: alone Occupation/Education: retired Gender identity (if verbalized by the patient): Female Spiritual care concerns: No Meds Home Medications and Allergies Home Medications Medication Instructions Recorded Confirmed Type aspirin 81 mg tablet,delayed 81 mg PO DAILY 09/17/19 11/10/20 History release acetaminophen [Tylenol Extra 1,000 mg PO Q6H PRN 03/11/20 11/10/20 History Strength] famotidine 10 mg PO DAILY 03/11/20 11/10/20 History albuterol sulfate 90 mcg/actuation 2 puff INHALATION Q4H PRN #18 gm 06/25/20 11/10/20 Rx aerosol inhaler metoprolol succinate 25 mg capsule 25 mg PO DAILY #90 ea 07/09/20 11/10/20 Rx sprinkle, ext. release 24 hr olmesartan 20 mg tablet 20 mg PO DAILY #90 tablet 07/09/20 11/10/20 Rx alprazolam 0.25 mg tablet 0.25 mg PO BID #30 tablet 08/11/20 11/10/20 Rx budesonide-formoterol HFA 160 2 puff INHALATION Q12H #10.2 g 11/08/20 11/10/20 Rx mcg-4.5 mcg/actuation aerosol inhaler omeprazole 20 mg capsule,delayed 20 mg PO DAILY #30 cap 11/08/20 11/10/20 Rx release Eliquis 5 mg PO DAILY 11/10/20 11/10/20 History spironolactone 50 mg PO DAILY 11/10/20 11/10/20 History tramadol 50 mg PO Q6H PRN 11/10/20 11/10/20 History Allergies Allergy/AdvReac Type Severity Reaction Status Date / Time celecoxib Allergy Unknown Skin Verified 11/10/20 01:52 Reaction cephalexin Allergy Unknown tightness Verified 11/10/20 01:52 in throat guaifenesin Allergy Unknown Asthma Verified 11/10/20 01:52 Penicillins Allergy Unknown Anaphylactic Verified 11/10/20 01:52 Shock Sulfa (Sulfonamide Allergy Unknown Anaphylactic Verified 11/10/20 01:52 Antibioti
[2020-11-10] MEDS: ONDANSETRON INJ 4 MG/2 ML VIAL IV PUSH (06:08)
[2020-11-10 06:23] LABS: Cholesterol 148 mg/dL (0-200); HDL Direct 36 mg/dL; Triglycerides 102 mg/dL (<150)
[2020-11-10 06:33] LABS: Sodium Urine Random 44 meq/L
[2020-11-10 06:35] LABS: LDL Cholesterol Direct 82 mg/dL
[2020-11-10] MEDS: FAMOTIDINE 20 MG/2 ML VIAL IV PUSH ×2 (08:25→21:16)
--- NOTE | 2020-11-10 10:53 | PM.CNGS ---
Assessment and Plan Assessment and plan (1) Acute pancreatitis: Code(s): K85.90 - Acute pancreatitis without necrosis or infection, unspecified Status: Acute Assessment and Plan: CT scan reviewed and discussed with the patient in detail. There is evidence of acute pancreatitis noted on CT scan and lipase still 2000 today. Would continue with IV fluids, analgesics, and bowel rest. Continue to trend labs. She has no current or previous history of heavy alcohol use. Triglycerides are normal. In review of her medications, omeprazole is a listed medication to have the potential to cause pancreatitis, which she started recently, although seems less likely with the elevated LFTs. Would recommend changing her treatment for reflux symptoms if possible. Cholelithiasis confirmed on ultrasound and could be a potential cause. See plan below. (2) Cholelithiasis: Code(s): K80.20 - Calculus of gallbladder without cholecystitis without obstruction Status: Acute Assessment and Plan: Cholelithiasis and gallbladder wall thickening seen on ultrasound this morning, more likely chronic cholecystitis. No pericholecystic fluid or positive Palomino's sign to suggest acute cholecystitis. Patient is afebrile and WBC trending down. She also seems to be clinically improving. Will defer IV antibiotics at this time. Cholelithiasis is a potential cause for her pancreatitis. I had a long discussion with the patient regarding treatment options and our recommendation on proceeding with surgical intervention. Due to her multiple co-morbidities, morbid obesity, and anticoagulation, the patient is at a higher risk for surgery and anesthesia. It would benefit the patient to be transferred to a tertiary care facility for a cholecystectomy where they specialize in bariatric surgery and could manage all of her issues. The patient is hesitant to transfer to any larger hospitals in [place], but she would consider going to [facility]. I discussed the patient's case with the Hospitalist so they were aware of potential need to work on transfer. The patient is going to speak with her daughter and let us know what she decides. (3) Transaminitis: Code(s): R74.01 - Elevation of levels of liver transaminase levels Status: Acute Assessment and Plan: Elevated LFTs are concerning for a gallstone that slipped out into the common bile duct. LFTs trending down today. No evidence of intrahepatic or extrahepatic ductal dilation on the CT scan. Common bile duct measures normal on ultrasound this morning. No choledocholithiasis seen. Continue to trend labs. (4) Chronic atrial fibrillation: Code(s): I48.20 - Chronic atrial fibrillation, unspecified Status: Chronic Assessment and Plan: Takes Eliquis for this. She is rate controlled on my exam. (5) Anticoagulant long-term use: Code(s): Z79.01 - termination clerk (current) use of anticoagulants Status: Acute Assessment and Plan: Continued to hold Eliquis. Last dose was yesterday morning around 8:30 a.m.. (6) Hyponatremia: Code(s): E87.1 - Hypo-osmolality and hyponatremia Status: Acute Assessment and Plan: Sodium 123 today. Appears to be somewhat of a chronic problem. Management per hospitalist. (7) Asthma: Qualifiers: Asthma complication type: unspecified Asthma persistence: unspecified Asthma severity: unspecified severity Qualified Code(s): J45.909 - Unspecified asthma, uncomplicated Code(s): J45.909 - Unspecified asthma, uncomplicated Status: Chronic Assessment and Plan: Increases risks of surgery. (8) Obstructive sleep apnea: Code(s): G47.33 - Obstructive sleep apnea (adult) (pediatric) Status: Chronic Assessment and Plan: Increases risks of surgery. Continue CPAP. (9) Diastolic dysfunction: Code(s): I51.89 - Other ill-defined heart diseases Status: Acute (10) Mo
--- NOTE | 2020-11-10 12:47 | PM.IMPN ---
Progress Note: A&P Assessment and Plan (1) Acute pancreatitis: Qualifiers: Acute pancreatitis complication: no infection or necrosis Pancreatitis type: unspecified pancreatitis type Qualified Code(s): K85.90 - Acute pancreatitis without necrosis or infection, unspecified Code(s): K85.90 - Acute pancreatitis without necrosis or infection, unspecified Status: Acute Assessment and Plan: The patient has been placed in observation status. Continue pain control as needed. NPO and bowel rest. Acute pancreatitis appears to be secondary to gallbladder disease. Check lipid panel in a.m.. General surgery has been consulted. Continue general surgery recommendations. (2) Transaminitis: Code(s): R74.01 - Elevation of levels of liver transaminase levels Status: Acute Assessment and Plan: Cholestatic transaminitis appears to be secondary to dysfunctional gallbladder. Monitor LFTs. Continue general surgery recommendations for likely early cholecystectomy. (3) Leukocytosis: Qualifiers: Leukocytosis type: unspecified Qualified Code(s): D72.829 - Elevated white blood cell count, unspecified Code(s): D72.829 - Elevated white blood cell count, unspecified Status: Acute Assessment and Plan: Likely secondary to acute pancreatitis. Monitor CBCD (4) Hyponatremia: Code(s): E87.1 - Hypo-osmolality and hyponatremia Status: Acute Assessment and Plan: Monitor serum sodium. Continue light IV hydration of normal saline. Check urine sodium and urine osmolality. (5) Chronic atrial fibrillation: Code(s): I48.20 - Chronic atrial fibrillation, unspecified Status: Chronic Assessment and Plan: Hold Eliquis as the patient will likely need an early cholecystectomy. Currently rate controlled. Consider rate-controlling medications as needed. (6) Obstructive sleep apnea: Code(s): G47.33 - Obstructive sleep apnea (adult) (pediatric) Status: Chronic Assessment and Plan: Continue home CPAP (7) CHF (congestive heart failure): Qualifiers: Heart failure chronicity: acute on chronic Heart failure type: diastolic Qualified Code(s): I50.33 - Acute on chronic diastolic (congestive) heart failure Code(s): I50.9 - Heart failure, unspecified Status: Chronic Assessment and Plan: Currently compensated. Resume home CHF meds when possible. (8) Benign essential HTN: Code(s): I10 - Essential (primary) hypertension Status: Chronic Assessment and Plan: Monitor blood pressure. P.r.n. IV hydralazine with parameters as ordered. Resume home oral antihypertensives when the patient is eating again. (9) Asthma: Qualifiers: Asthma complication type: unspecified Asthma persistence: unspecified Asthma severity: unspecified severity Qualified Code(s): J45.909 - Unspecified asthma, uncomplicated Code(s): J45.909 - Unspecified asthma, uncomplicated Status: Chronic Assessment and Plan: Continue home bronchodilators. Additional Plan Date of service was November 10, 2020 at approximately 1:00 a.m. Subjective Date/time seen: 11/10/20 12:47 Pt seen and evaluated. Labs and diagnostic reports reviewed. I agree with current A/P. Discussed with surgical team plan of care Objective Data Vital Signs Vital Signs: Vital Signs - 24 hr 11/09/20 19:00 11/09/20 21:33 11/09/20 22:42 Temperature 36.6 C Pulse Rate 98 102 H 99 Respiratory Rate 17 19 19 Blood Pressure 134/52 L 155/82 H 153/75 H Pulse Oximetry 100 100 97 11/10/20 00:32 11/10/20 01:10 11/10/20 01:50 Temperature 36.0 C L Pulse Rate 93 100 90 Respiratory Rate 17 16 16 Blood Pressure 146/61 H 148/104 H 118/81 Pulse Oximetry 97 99 100 11/10/20 02:29 11/10/20 06:09 11/10/20 08:34 Temperature 36.1 C L Pulse Rate 84 Respiratory Rate 18 Blood Pressure 132/84 Pulse Oximetry 99 97 95 Int
[2020-11-10] MEDS: SODIUM CHLORIDE 0.9% IV 1,000 ML 100 ML IV CONT (16:55)
[2020-11-10 17:52] LABS: Bilirubin,Total 2.4 mg/dL (0.2-1.3)
--- NOTE | 2020-11-10 22:09 | P.PNCROSS_ITS ---
Event Note Event Note Event Note: Discussed the patient with general surgery in, Dr. Tovar at [facility] who has accepted the patient for transfer. health coordinator has advised me that they may not have a bed available until tomorrow.
--- NOTE | 2020-11-10 22:09 | PM.EVENT ---
Event Note Event Note Event Note: Discussed the patient with general surgery in, Dr. Tovar at [facility] who has accepted the patient for transfer. fire coordinator has advised me that they may not have a bed available until tomorrow.
[2020-11-11] MEDS: SODIUM CHLORIDE 0.9% IV 1,000 ML 100 ML IV CONT ×2 (03:35→15:37)
[2020-11-11 05:56] LABS: Basophils Percent Auto 0.5 % (0.2-1.2); Eosinophils Percent Auto 0.5 % (0-4.4); Hematocrit 32.7 % (37.0-47.0); Hemoglobin 10.9 g/dL (12.0-15.0); Immature Granulocyte Absolute 0.04 K/mm3 (0.00-0.031); Immature Granulocyte Percent A 0.5 % (0-0.5); Lymphocytes Percent Auto 13.7 % (18.3-44.2); Mean Corpuscular HGB Conc 33.3 g/dl (32-36); Mean Corpuscular Hemoglobin 29.4 pg (26-34); Mean Corpuscular Volume 88.1 fl (80-100); Mean Platelet Volume 10.3 fl (7.4-10.4); Monocytes Absolute Auto 1.4 K/mm3 (0.1-0.6); Neutrophils Absolute Auto 5.5 K/mm3 (1.3-6.7); Neutrophils Percent Auto 67.8 % (45.5-73.1); Platelet Count Result 201 k/mm3 (150-375); Red Blood Count 3.71 M/mm3 (4.2-5.4); Red Cell Distribution Width 14.4 % (11.5-14.5); White Blood Count 8.1 K/mm3 (4.5-10.0)
[2020-11-11 06:00] LABS: Alanine Aminotransferase 100 U/L (4-35); Albumin Level 3.2 g/dL (3.5-5.1); Alkaline Phosphatase 169 U/L (38-126); Anion Gap 8 mmol/L (8-16); Aspartate Amino Transferase 70 U/L (14-36); Bilirubin,Total 1.7 mg/dL (0.2-1.3); Blood Urea Nitrogen 12 mg/dL (7-17); Carbon Dioxide 19 mmol/L (22-30); Chloride 106 mmol/L (98-107); Estimated CRCL calculation 95 ml/min; Estimated Glomerular Filt Rate > 60; Glucose 85 mg/dL (65-105); Lipase 359 U/L (23-300); Potassium 3.6 mmol/L (3.4-5.0); Sodium 133 mmol/L (137-145)
[2020-11-11 06:25] VITALS: BP 115/79; PULSE 88; RESP 18; TEMP 36.5; O2SAT 99
[2020-11-11] MEDS: FAMOTIDINE 20 MG/2 ML VIAL IV PUSH ×2 (08:34→20:22)
--- NOTE | 2020-11-11 10:05 | PM.PNGS ---
Progress Note: A&P Assessment and Plan (1) Acute pancreatitis: Code(s): K85.90 - Acute pancreatitis without necrosis or infection, unspecified Status: Acute Assessment and Plan: Etiology would be cholelithiasis vs medication-induced (omeprazole). Although our recommendation is to proceed with cholecystectomy, we would also recommend changing her omeprazole to either Protonix or H2 antagonist, such as famotidine (which do not have the side effects of potentially causing pancreatitis) in case this was a potential cause. Lipase down to 359. Patient clinically improving. No nausea or abdominal pain. Will advance her to clear liquid diet. Continue IV fluids, rate decreased. Awaiting bed at [facility]. (2) Cholelithiasis: Code(s): K80.20 - Calculus of gallbladder without cholecystitis without obstruction Status: Acute Assessment and Plan: Cholelithiasis and gallbladder wall thickening seen on ultrasound, more likely chronic cholecystitis. No pericholecystic fluid or positive Palomino's sign to suggest acute cholecystitis. WBC normal, afebrile, and clinically improving. Likely cause of her acute pancreatitis. Would recommend a laparoscopic cholecystectomy. We have recommended that she be transferred to a tertiary care facility for surgery due to being a high risk surgical candidate with her multiple co-morbidities, morbid obesity, and anticoagulation. I discussed the patient's case with the Hospitalist again today, and [facility] I had a long conversation with the patient and her daughter regarding the reasoning of transfer and they agreed to proceed. Awaiting placement hopefully by tomorrow. (3) Transaminitis: Code(s): R74.01 - Elevation of levels of liver transaminase levels Status: Acute Assessment and Plan: Elevated LFTs are concerning for a gallstone that slipped out into the common bile duct. LFTs continue to trend down. No evidence of intrahepatic or extrahepatic ductal dilation on the CT scan. Common bile duct measures normal on ultrasound. No choledocholithiasis seen. Continue to trend labs. (4) Chronic atrial fibrillation: Code(s): I48.20 - Chronic atrial fibrillation, unspecified Status: Chronic Assessment and Plan: She is rate controlled on my exam. (5) Anticoagulant long-term use: Code(s): Z79.01 - penitentiary (current) use of anticoagulants Status: Acute Assessment and Plan: Continued to hold Eliquis. Last dose was 11/09/20 around 8:30 a.m.. (6) Hyponatremia: Code(s): E87.1 - Hypo-osmolality and hyponatremia Status: Acute (7) Asthma: Qualifiers: Asthma complication type: unspecified Asthma persistence: unspecified Asthma severity: unspecified severity Qualified Code(s): J45.909 - Unspecified asthma, uncomplicated Code(s): J45.909 - Unspecified asthma, uncomplicated Status: Chronic (8) Obstructive sleep apnea: Code(s): G47.33 - Obstructive sleep apnea (adult) (pediatric) Status: Chronic (9) Diastolic dysfunction: Code(s): I51.89 - Other ill-defined heart diseases Status: Acute (10) Morbid obesity with BMI of 50.0-59.9, adult: Code(s): E66.01 - Morbid (severe) obesity due to excess calories; Z68.43 - Body mass index [BMI] 50.0-59.9, adult Status: Acute Additional Plan I have discussed the patient's case and plan of care with Dr. Longo. Subjective Subjective Date/Time Seen: 11/11/20 08:05 Patient reports: no new complaints, feels better, pain is less and afebrile Interval history: Patient doing well today. Reports feeling better than yesterday with no abdominal pain. Reports still feeling sore in her upper abdomen. Reports chronic back/lower abd pain but no more of the acute abdominal/back pain she was experiencing. No nausea today and no vomiting. No other complaints. Patient has agreed to transfer to [place]. Per the nurse, they hav
[2020-11-11 14:00] VITALS: BP 120/80; PULSE 96; RESP 21; TEMP 35.4; O2SAT 100
--- NOTE | 2020-11-11 15:01 | PM.IMPN ---
Progress Note: A&P Assessment and Plan (1) Acute pancreatitis: Qualifiers: Acute pancreatitis complication: no infection or necrosis Pancreatitis type: unspecified pancreatitis type Qualified Code(s): K85.90 - Acute pancreatitis without necrosis or infection, unspecified Code(s): K85.90 - Acute pancreatitis without necrosis or infection, unspecified Status: Acute Assessment and Plan: Continue pain control as needed. Now on clear liquid diet Acute pancreatitis appears to be secondary to gallbladder disease lipid panel unremarkable General surgery following, recommendations appreciated, plan to transfer to [facility] when bed available for surgery (2) Transaminitis: Code(s): R74.01 - Elevation of levels of liver transaminase levels Status: Acute Assessment and Plan: Cholestatic transaminitis appears to be secondary to dysfunctional gallbladder Monitor LFTs, improving General surgery following, plan for cholecystectomy at [facility] (3) Leukocytosis: Qualifiers: Leukocytosis type: unspecified Qualified Code(s): D72.829 - Elevated white blood cell count, unspecified Code(s): D72.829 - Elevated white blood cell count, unspecified Status: Acute Assessment and Plan: Likely secondary to acute pancreatitis Resolved Monitor CBC (4) Hyponatremia: Code(s): E87.1 - Hypo-osmolality and hyponatremia Status: Acute Assessment and Plan: Improving Monitor serum sodium Continue light IV hydration of normal saline Check urine sodium wnl Urine osmolality pending (5) Chronic atrial fibrillation: Code(s): I48.20 - Chronic atrial fibrillation, unspecified Status: Chronic Assessment and Plan: Hold Eliquis as the patient will likely need an early cholecystectomy Currently rate controlled. Consider rate-controlling medications as needed (6) Obstructive sleep apnea: Code(s): G47.33 - Obstructive sleep apnea (adult) (pediatric) Status: Chronic Assessment and Plan: Continue home CPAP (7) CHF (congestive heart failure): Qualifiers: Heart failure chronicity: acute on chronic Heart failure type: diastolic Qualified Code(s): I50.33 - Acute on chronic diastolic (congestive) heart failure Code(s): I50.9 - Heart failure, unspecified Status: Chronic Assessment and Plan: Currently compensated Resume home CHF meds (8) Benign essential HTN: Code(s): I10 - Essential (primary) hypertension Status: Chronic Assessment and Plan: Monitor blood pressure P.r.n. IV hydralazine with parameters as ordered Resume home oral antihypertensives when the patient is eating again (9) Asthma: Qualifiers: Asthma complication type: unspecified Asthma persistence: unspecified Asthma severity: unspecified severity Qualified Code(s): J45.909 - Unspecified asthma, uncomplicated Code(s): J45.909 - Unspecified asthma, uncomplicated Status: Chronic Assessment and Plan: Continue home bronchodilators Additional Plan Date of service was November 10, 2020 at approximately 1:00 a.m. Subjective Date/time seen: 11/11/20 15:01 The patient statest that she feels better; she denies any abdominal pain and is taking sips of water with ice chips Review of Systems Review of Systems: All systems reviewed & are unremarkable except as noted in HPI and below Exam Const: General: cooperative, alert and awake Nutritional Appearance: obese morbidly obese Orientation/consciousness: patient oriented x3 HENMT: Head: normal to inspection General nose exam: Normal external nose present Face and sinus: normal facial exam Mouth: Yes Normal oral and palatal mucosa present and Yes oropharynx normal Eyes: Pupils: Equal, round and reactive pupils present EOM: EOMs intact bilaterally Neck: Neck: supple and no JVD Thyroid: thyroid normal Lymphatic: lymphadenopathy not noted Resp: Eff
[2020-11-11 19:52] VITALS: BP 126/63; PULSE 90; RESP 18; TEMP 35.9; O2SAT 100
--- NOTE | 2020-11-11 20:25 | PC.NURSE ---
Updated patient on the transfer to [facility] and [facility] ETA. Patient verbalized understanding.
--- NOTE | 2020-11-12 14:46 | PM.TDS ---
Transfer Discharge Sum: Prov Provider Date of admission: 11/10/20 07:40 Primary care physician: Noble Jain MD Admitting clinician: Brennen Strickland MD Consults: 11/10/20 00:51 Consult to Physician Routine Comment: Consulting Provider: Gibran Longo Reason for consultation: cholelithiasis , possible choledocholithiasis Has provider been notified: Yes DS: Admitting Diagnosis Admitting Diagnosis Admitting Diagnosis: Madeline Richards was admitted with pancreatitis and cholelithiasis. Her symptoms have improved, however, she will require cholecystectomy and was transferred to [place] for tertiary care due to her BMI and comorbidities. DS: Discharge Diagnosis Discharge Diagnosis (1) Acute pancreatitis: Qualifiers: Pancreatitis type: unspecified pancreatitis type Acute pancreatitis complication: no infection or necrosis Qualified Code(s): K85.90 - Acute pancreatitis without necrosis or infection, unspecified Code(s): K85.90 - Acute pancreatitis without necrosis or infection, unspecified Status: Acute Assessment and Plan: Continue pain control as needed. Now on clear liquid diet Acute pancreatitis appears to be secondary to gallbladder disease lipid panel unremarkable General surgery following, recommendations appreciated, plan to transfer to [facility] when bed available for surgery (2) Transaminitis: Code(s): R74.01 - Elevation of levels of liver transaminase levels Status: Acute Assessment and Plan: Cholestatic transaminitis appears to be secondary to dysfunctional gallbladder Monitor LFTs, improving General surgery following, plan for cholecystectomy at [facility] (3) Leukocytosis: Qualifiers: Leukocytosis type: unspecified Qualified Code(s): D72.829 - Elevated white blood cell count, unspecified Code(s): D72.829 - Elevated white blood cell count, unspecified Status: Acute Assessment and Plan: Likely secondary to acute pancreatitis Resolved Monitor CBC (4) Hyponatremia: Code(s): E87.1 - Hypo-osmolality and hyponatremia Status: Acute Assessment and Plan: Improving Monitor serum sodium Continue light IV hydration of normal saline Check urine sodium wnl Urine osmolality pending (5) Chronic atrial fibrillation: Code(s): I48.20 - Chronic atrial fibrillation, unspecified Status: Chronic Assessment and Plan: Hold Eliquis as the patient will likely need an early cholecystectomy Currently rate controlled. Consider rate-controlling medications as needed (6) Obstructive sleep apnea: Code(s): G47.33 - Obstructive sleep apnea (adult) (pediatric) Status: Chronic Assessment and Plan: Continue home CPAP (7) CHF (congestive heart failure): Qualifiers: Heart failure chronicity: acute on chronic Heart failure type: diastolic Qualified Code(s): I50.33 - Acute on chronic diastolic (congestive) heart failure Code(s): I50.9 - Heart failure, unspecified Status: Chronic Assessment and Plan: Currently compensated Resume home CHF meds (8) Benign essential HTN: Code(s): I10 - Essential (primary) hypertension Status: Chronic Assessment and Plan: Monitor blood pressure P.r.n. IV hydralazine with parameters as ordered Resume home oral antihypertensives when the patient is eating again (9) Asthma: Qualifiers: Asthma severity: unspecified severity Asthma persistence: unspecified Asthma complication type: unspecified Qualified Code(s): J45.909 - Unspecified asthma, uncomplicated Code(s): J45.909 - Unspecified asthma, uncomplicated Status: Chronic Assessment and Plan: Continue home bronchodilators Transfer Discharge Sum: Med Medications Active and Home Medications: Home Medications aspirin 81 mg tablet,delayed release 81 mg PO DAILY 09/17/19 [History Confirmed 11/10/20] acetaminophen [Tylenol Extra S
[2020-11-13 05:39] LABS: Osmolality, Urine 249 mOsm/kg (50-1200)
== END 2020-11-11 20:50 | disposition short-term general hospital (02) | DRG 439 ==
LOC: ANHED 11-10 01:27 → ANH3MED 11-10 01:48
PROVIDERS: Emergency Medicine; Nurse Practitioner Adult Health; Admitting Provider Family Medicine; Emergency Provider General Practice; PCP Family Medicine; Visit Provider Hospitalist
DX: K85.10 Biliary acute pancreatitis without necrosis or infection (principal); K80.10 Calculus of gallbladder with chronic cholecystitis without obstruction; E87.1 Hypo-osmolality and hyponatremia; I48.20 Chronic atrial fibrillation, unspecified; Z68.43 Body mass index [BMI] 50.0-59.9, adult; I50.32 Chronic diastolic (congestive) heart failure; E66.01 Morbid (severe) obesity due to excess calories; R74.01 Elevation of levels of liver transaminase levels; D72.829 Elevated white blood cell count, unspecified; G47.33 Obstructive sleep apnea (adult) (pediatric); I11.0 Hypertensive heart disease with heart failure; J45.909 Unspecified asthma, uncomplicated; K21.9 Gastro-esophageal reflux disease without esophagitis; M47.896 Other spondylosis, lumbar region; K44.9 Diaphragmatic hernia without obstruction or gangrene; Z79.01 Long term (current) use of anticoagulants
CPT/HCPCS: 36415; 71046; 74018; 74177; 76705; 80053; 80061; 82247; 83690; 83935; 84300; 85025; 85610; 85730; 93005; 96361; 96365; 96367; 96375; 99285; G0378; J1956; J2405; J7030; Q9967

== ENCOUNTER → 2021-09-19 11:58 | Outpatient (CLI) | payer MEDICARE, SELFPAY ==
--- NOTE | ~2021-09-19 | XR_ITS ---
EXAMINATION: XR chest 2V DATE: 09/19/2021 12:22 INDICATION: Shortness of breath. TECHNIQUE: Frontal and lateral views of the chest were obtained. COMPARISON: Chest 2 views 11/08/2020, CT abdomen and pelvis 11/09/2020 FINDINGS: A calcified right lung nodule and calcified right hilar and mediastinal lymph nodes are con sistent with old granulomatous disease. There are mild chronic peripheral airspace opacities in right mid and lower lung zones and left lower lung zone. No pleural effusion or pneumothorax. Surgical cli ps in the right upper quadrant are likely from cholecystectomy. There is a chronic compression fractu re of T11. There is a chronic compression fracture of L2. IMPRESSION: 1. Stable mild chronic interstitial lung disease. Reviewed, dictated and finalized at location A. [facility]
== END ==
PROVIDERS: PCP Family Medicine; Visit Provider Physician Assistant
DX: R06.02 Shortness of breath (principal); J84.9 Interstitial pulmonary disease, unspecified
CPT/HCPCS: 71046

== ENCOUNTER 2022-11-17 07:18 | Observation (INO) | payer MEDICARE, SELFPAY ==
[2022-11-17] VITALS (46 sets, daily range): BP systolic 106–159; BP diastolic 46–83; PULSE 91–128; RESP 16–20; TEMP 36.4–37.8; O2SAT 94–100
--- NOTE | 2022-11-17 08:13 | ED.WOUNDLAC ---
HPI - Wound/Laceration General Chief Complaint: Wound/Laceration Stated Complaint: ulcer to left leg Time Seen by Provider: 11/17/22 07:25 History of Present Illness HPI narrative: 72-year-old female with history of abscesses presented to the emergency department for evaluation of an abscess on her left medial thigh. Patient states on Sunday when she was getting off the toilet she noticed some pain in her middle thigh and states over the course on Sunday the pain had worsened. Patient does have history of abscesses. Patient also had a slowly healing wound on her right leg secondary to an injury and just completed clindamycin on 07 November. Patient denies any associated nausea vomiting diarrhea. Related Data Home Medications Medication Instructions Recorded Confirmed acetaminophen 500 mg tablet 1,000 mg PO Q6H PRN arthritis pian 11/17/22 11/17/22 albuterol sulfate 90 mcg/actuation 2 puff inhalation Q4-6H PRN SOB 11/17/22 11/17/22 aerosol inhaler alprazolam 0.25 mg tablet 0.25 mg PO BID PRN anxiey 11/17/22 11/17/22 apixaban 5 mg tablet (Eliquis) 5 mg PO DAILY 11/17/22 11/17/22 budesonide-formoterol HFA 160 2 puff inhalation Q12-24H PRN sob 11/17/22 11/17/22 mcg-4.5 mcg/actuation aerosol inhaler cetirizine 10 mg tablet 10 mg PO DAILY 11/17/22 11/17/22 metoprolol succinate 25 mg 25 mg PO DAILY 11/17/22 11/17/22 tablet,extended release 24 hr olmesartan 20 mg tablet 20 mg PO DAILY 11/17/22 11/17/22 omeprazole 20 mg capsule,delayed 20 mg PO DAILY PRN Acid Reflux 11/17/22 11/17/22 release spironolactone 25 mg tablet 25 mg PO DAILY 11/17/22 11/17/22 Allergies Allergy/AdvReac Type Severity Reaction Status Date / Time celecoxib Allergy Unknown Skin Verified 10/27/22 14:46 Reaction cephalexin Allergy Unknown tightness Verified 10/27/22 14:46 in throat guaifenesin Allergy Unknown Asthma Verified 10/27/22 14:46 Penicillins Allergy Unknown Anaphylactic Verified 10/27/22 14:46 Shock Sulfa (Sulfonamide Allergy Unknown Anaphylactic Verified 10/27/22 14:46 Antibiotics) Shock sulfamethizole Allergy Unknown Swelling Verified 10/27/22 14:46 vancomycin Allergy Unknown ALLERGY Verified 10/27/22 14:46 naproxen AdvReac Unknown Stomach Verified 10/27/22 14:46 ache Review of Systems Review of Systems: All systems reviewed & are unremarkable except as noted in HPI and below PMFSH Past Medical History Medical History Acute pancreatitis Acute pancreatitis Asthma Cholelithiasis Chronic atrial fibrillation on chronic anticoagulation with Eliquis Diastolic dysfunction noted on echocardiogram from 2017 Essential hypertension GERD (gastroesophageal reflux disease) Hiatal hernia Hyponatremia Leukocytosis Lumbar spondylosis Morbid obesity Obstructive sleep apnea uses her cpap Papule of skin Superficial ulcer Transaminitis Surgical History Surgical History H/O section x 2 Family History Family History Father Coronary artery disease Hypertension Lymphoma Gallbladder disease Mother Cervical cancer Breast cancer Lung cancer Social History Social History Smoking status: Never smoker Alcohol intake: never Substance use: former Substance use type: does not use Lack of Transportation: No Lack of Food: Sometimes True Current Housing: I Do Not Have Housing Concerned About Future Housing: No Difficulty Paying Gas/Electric Bills: No Difficulty Paying for Meds: No Currently Unemployed: No Education: Trade/Vocational Certificate Difficulty w/ Childcare or Family Care: No Living arrangements: alone Occupation/Education: retired Gender identity (if verbalized by the patient): Female Spiritual care concerns: No Exam Narr
[2022-11-17 08:53] LABS: Basophils Percent Auto 0.1 % (0.2-1.2); Hematocrit 39.1 % (37.0-47.0); Hemoglobin 13.3 g/dL (12.0-15.0); Immature Granulocyte Absolute 0.15 K/mm3 (0.00-0.031); Immature Granulocyte Percent A 0.7 % (0-0.5); Lymphocytes Absolute Auto 0.79 K/mm3 (0.9-3.2); Lymphocytes Percent Auto 3.9 % (18.3-44.2); Mean Corpuscular Volume 88.3 fl (80-100); Mean Platelet Volume 9.5 fl (7.4-10.4); Monocytes Absolute Auto 1.5 K/mm3 (0.1-0.6); Monocytes Percent Auto 7.2 % (2.6-8.5); Neutrophils Absolute Auto 17.9 K/mm3 (1.3-6.7); Neutrophils Percent Auto 88.1 % (45.5-73.1); Platelet Count Result 266 k/mm3 (150-375); Red Blood Count 4.43 M/mm3 (4.2-5.4); Red Cell Distribution Width 13.7 % (11.5-14.5); White Blood Count 20.3 K/mm3 (4.5-10.0)
[2022-11-17] MEDS: LIDOCAINE HCL 1% LOCAL INJ 10 ML VIAL INFILTRATE (08:58)
[2022-11-17 09:12] LABS: Alanine Aminotransferase 21 U/L (6-35); Albumin Level 4.3 g/dL (3.5-5.1); Alkaline Phosphatase 91 U/L (38-126); Anion Gap 8 mmol/L (8-16); Aspartate Amino Transferase 33 U/L (14-36); Bilirubin,Total 1.2 mg/dL (0.2-1.3); Blood Urea Nitrogen 13 mg/dL (7-17); Calcium 8.4 mg/dL (8.4-10.2); Carbon Dioxide 20 mmol/L (22-30); Chloride 96 mmol/L (98-107); Estimated Glomerular Filt Rate > 60; Glucose 113 mg/dL (65-110); Potassium 4.3 mmol/L (3.4-5.0); Sodium 124 mmol/L (137-145)
--- NOTE | 2022-11-17 09:45 | PC.NURSE ---
pt called staff to room to reports her gown was wet. abx tubing found to be loose on hub and appears all of the abx has infused on pt and floor. ERP notified
[2022-11-17] MEDS: CLINDAMYCIN 600 MG/D5W 50 ML 600 MG/50 ML PIGGYBACK 100 MG IVPB ×2 (10:10→18:04)
--- NOTE | 2022-11-17 10:10 | PC.NURSE ---
abx wasted in pyxis and new bag pulled. abx infusing
--- NOTE | 2022-11-17 13:29 | PC.NURSE ---
pt has c/o low abd pressure and discharge pt has concerns she may have UTI. UA and straight cath for sterile specimen Per V.O/RB Dr. Serrano
--- NOTE | 2022-11-17 14:15 | PM.CNGS ---
Assessment and Plan Assessment and plan (1) Cellulitis of right lower leg: Code(s): L03.115 - Cellulitis of right lower limb Status: Acute Assessment and Plan: The patient has been admitted to the hospitalist service and started on clindamycin for IV antibiotics and treatment of her left posterior thigh cellulitis and abscess. The abscess is already been drained by the emergency room physician and cultures have been obtained. Will follow the patient while she is in the hospital to see if she will need any further formal operative drainage of the abscess in the operating room but for now it seems it is draining well with the measures taken in the emergency room. White blood count was 20,300 on admission and this should trend down over the next few days. Will follow up for wound care. Okay for diet as tolerated. History of Present Illness Consult details Consult date: 11/17/22 Narrative: Patient is a 72-year-old female presented to the emergency room today with complaints of pain redness and some spontaneous drainage from an abscess in the posterior medial left thigh region. She has a prior history of having subcutaneous abscesses in the past. More recently she was on a course of clindamycin for treatment of a right lower extremity chronic wound which is now healed. In the emergency room the ER physician incised and drained the abscess already. Cultures of the purulent fluid were sent to microbiology. The patient states that the area feels much better since it has been decompressed and drained. White blood cell count was [id number]. He has been started on clindamycin IV for treatment of the cellulitis and the abscess. She is being admitted to the hospitalist service for IV antibiotics and manage min of her medical conditions. Review of Systems Review of Systems: The remainder of the review of systems to include constitutional, HEENT, cardiovascular, respiratory, GI, , integumentary, musculoskeletal, endocrine, immunologic, hematologic, psychiatric, and neurologic are all negative except for which is mentioned above in the HPI. [facility] Past Medical History Medical History Acute pancreatitis Acute pancreatitis Asthma Cholelithiasis Chronic atrial fibrillation on chronic anticoagulation with Eliquis Diastolic dysfunction noted on echocardiogram from 2017 Essential hypertension GERD (gastroesophageal reflux disease) Hiatal hernia Hyponatremia Leukocytosis Lumbar spondylosis Morbid obesity Obstructive sleep apnea uses her cpap Papule of skin Superficial ulcer Transaminitis Surgical History Surgical History H/O section x 2 Family History Family History Father Coronary artery disease Hypertension Lymphoma Gallbladder disease Mother Cervical cancer Breast cancer Lung cancer Social History Social History Smoking status: Never smoker Alcohol intake: never Substance use: never Substance use type: does not use Lack of Transportation: No Lack of Food: Never True Current Housing: I Have Housing Concerned About Future Housing: No Difficulty Paying Gas/Electric Bills: No Difficulty Paying for Meds: No Currently Unemployed: No Education: Trade/Vocational Certificate Difficulty w/ Childcare or Family Care: No Living arrangements: alone Occupation/Education: retired Gender identity (if verbalized by the patient): Female Spiritual care concerns: No Meds Home Medications and Allergies Home Medications Medication Instructions Recorded Confirmed Type aspirin 81 mg tablet,delayed 81 mg PO DAILY 09/17/19 08/08/22 History release acetaminophen 500 mg tablet 1,000 mg PO Q6H PRN Pain 03/11/20 08/08/22 Histor
--- NOTE | 2022-11-17 14:15 | PM.IMHP ---
H&P: HPI History of Present Illness Date/Time: 11/17/22 16:15 Chief Complaint: Left thigh wound. Narrative: This is a very pleasant 72-year-old female with hypertension, atrial fibrillation on chronic anticoagulation, obstructive sleep apnea, and morbid obesity who presented to the emergency department via private vehicle from home for evaluation of a left thigh wound. The patient provides the following history. She was on the toilet for an extended period of time on Sunday and when she went to stand up she was having discomfort in the middle of the left thigh. The following day she reports increasing pain in the left thigh with pain radiating down the entire leg. She could hardly walk the next day due to the pain. She has since developed a subjective fever and she reports that her appetite has been a bit decreased. In the ED the area was incised and drained and a wound culture has been obtained. She was started on clindamycin given her multitude of antibiotics and she is being admitted in this setting for further treatment and surgery consultation for possible debridement if deemed necessary. She denies nausea, vomiting, and diarrhea. No known history of MRSA or other drug resistant organisms. Review of Systems Review of Systems: Twelve systems were reviewed and are negative except for as per HPI. [facility] Past Medical History Medical History (Updated 11/17/22 @ 20:28 by Lani Cody PA-C) Asthma Cholelithiasis Chronic acquired lymphedema Chronic atrial fibrillation Diastolic dysfunction Essential hypertension Gallstone pancreatitis (10/2020) Hiatal hernia Lumbar spondylosis Morbid obesity Obstructive sleep apnea on CPAP Surgical History Surgical History (Updated 11/17/22 @ 20:21 by Lani Cody PA-C) History of 2 sections History of tubal ligation Family History Family History Father Coronary artery disease Hypertension Lymphoma Gallbladder disease Mother Cervical cancer Breast cancer Lung cancer Social History Social History (Updated 11/17/22 @ 20:21 by Lani Cody PA-C) Social History: Surrogate medical decision maker: Ariadna Xavier, daughter. Code status: Full code. Smoking status: Never smoker Alcohol intake: never Substance use: former Substance use type: does not use Lack of Transportation: No Lack of Food: Sometimes True Current Housing: I Do Not Have Housing Concerned About Future Housing: No Difficulty Paying Gas/Electric Bills: No Difficulty Paying for Meds: No Currently Unemployed: No Education: Trade/Vocational Certificate Difficulty w/ Childcare or Family Care: No Living arrangements: alone Occupation/Education: retired Spiritual care concerns: No Meds Home Medications and Allergies Home Medications Medication Instructions Recorded Confirmed Type tramadol 50 mg tablet 50 mg PO Q6H PRN Pain #60 tabs 09/01/22 11/17/22 Rx mupirocin 2 % topical ointment 1 applic topical BID #22 grams 10/27/22 11/17/22 Rx acetaminophen 500 mg tablet 1,000 mg PO Q6H PRN arthritis pian 11/17/22 11/17/22 History albuterol sulfate 90 mcg/actuation 2 puff inhalation Q4-6H PRN SOB 11/17/22 11/17/22 History aerosol inhaler alprazolam 0.25 mg tablet 0.25 mg PO BID PRN anxiey 11/17/22 11/17/22 History apixaban 5 mg tablet (Eliquis) 5 mg PO DAILY 11/17/22 11/17/22 History budesonide-formoterol HFA 160 2 puff inhalation Q12-24H PRN sob 11/17/22 11/17/22 History mcg-4.5 mcg/actuation aerosol inhaler cetirizine 10 mg tablet 10 mg PO DAILY 11/17/22 11/17/22 History metoprolol succinate 25 mg 25 mg PO DAILY 11/17/22 11/17/22 History tablet,extended release 24 hr olmesartan 20 mg tablet 20 mg PO DAILY 11/17/22 11/17/22 History omeprazole 20 mg capsule,delayed 20 mg PO DAILY PRN Acid Reflux 11/17/22 11/17/22 History release spironolactone 25 mg ta
--- NOTE | 2022-11-17 15:42 | ADMGEN ---
This patient, Madeline Richards, was admitted to Medical Room 348-. Patient/family oriented to hospital policies and general routines including ID bracelet, bed and alarms, visiting hours, pain management, procedures, bathroom and other care routines, personal items, smoking policy, room service/diet, and visiting hours. Information on how to activate the Rapid Response Team has been discussed. Patient/Family are encouraged to report perceived risks to care and to ask questions if they do not understand what they are told or what they should do.
[2022-11-17] MEDS: SODIUM CHLORIDE 0.9% IV 1,000 ML 999 ML IV CONT (16:22)
[2022-11-17 16:26] LABS: Anion Gap 7 mmol/L (8-16); Blood Urea Nitrogen 12 mg/dL (7-17); Calcium 8.6 mg/dL (8.4-10.2); Carbon Dioxide 21 mmol/L (22-30); Chloride 96 mmol/L (98-107); Estimated CRCL calculation 91 ml/min; Estimated Glomerular Filt Rate > 60; Glucose 146 mg/dL (65-110); Lactic Acid Reflex 1.5 mmol/L (0.7-2.0); Potassium 3.8 mmol/L (3.4-5.0); Sodium 124 mmol/L (137-145)
[2022-11-17 16:55] LABS: Thyroid Stimulating Hormone Reflex 0.933 uIU/mL (0.465-4.68)
[2022-11-17] MEDS: SODIUM CHLORIDE 0.9% IV 1,000 ML 100 ML IV CONT (18:04)
[2022-11-17] MEDS: SACCHAROMYCES BOULARDII 250 MG CAPSULE PO (18:37)
[2022-11-17 19:17] LABS: Creatinine Urine 56.4 mg/dL
--- NOTE | 2022-11-17 19:17 | PC.NURSE ---
Called laboratory to add UA with reflex to urine sample sent down. Addition was acknowledged.
[2022-11-17 19:30] LABS: Sodium Urine Random 33 meq/L
[2022-11-17 19:30] LABS: Appearance Urine Clear (Clear); Bacteria Urine None Seen /hpf; Bilirubin Urine Negative (Negative); Blood Urine Negative (Negative); Color Urine Yellow (Yellow); Glucose Urine UA Negative (Negative); Ketones Urine Negative (Negative); Leukocyte Esterase Ur 1+ LEU/UL (Negative); Need Manual Microscopic Reviewed; Nitrate Urine Negative (Negative); Non Pathogenic Casts 0-2; Protein Urine Negative (Negative); RBC Urine 0-2 /hpf (0-2); Squamous Epithelial Cell Urine None seen /hpf (Few); Urobilinogen Urine 0.2 mg/dL (<2.0); WBC Urine 0-5 /hpf
[2022-11-17 19:32] LABS: Add Urine Microscopic? YES
[2022-11-17] MEDS: MUPIROCIN 2% OINT 22 GM TUBE 1 APPLIC TOPICAL (21:48)
[2022-11-17] MEDS: traMADol HCL (*CRX) 50 MG TABLET PO (22:10)
--- NOTE | 2022-11-17 22:14 | PC.NURSE ---
Notified maintenance regarding personal bipap verification.
[2022-11-18] VITALS (10 sets, daily range): BP systolic 121–130; BP diastolic 47–56; PULSE 82–102; RESP 16–18; TEMP 35.8–36.6; O2SAT 98–100
[2022-11-18] MEDS: CLINDAMYCIN 600 MG/D5W 50 ML 600 MG/50 ML PIGGYBACK 100 MG IVPB ×3 (01:47→17:06)
[2022-11-18] MEDS: WATER FOR IRRIGATION, STERILE 1,000 ML BOTTLE 1000 ML (01:55)
[2022-11-18 08:54] LABS: Alanine Aminotransferase 17 U/L (6-35); Albumin Level 3.5 g/dL (3.5-5.1); Alkaline Phosphatase 69 U/L (38-126); Anion Gap 5 mmol/L (8-16); Aspartate Amino Transferase 25 U/L (14-36); Bilirubin,Total 1.7 mg/dL (0.2-1.3); Blood Urea Nitrogen 10 mg/dL (7-17); Carbon Dioxide 21 mmol/L (22-30); Chloride 97 mmol/L (98-107); Estimated CRCL calculation 108 ml/min; Estimated Glomerular Filt Rate > 60; Glucose 108 mg/dL (65-110); Magnesium 1.8 mg/dL (1.6-2.3); Potassium 3.7 mmol/L (3.4-5.0); Sodium 123 mmol/L (137-145)
[2022-11-18] MEDS: METOPROLOL SUCCINATE EXT REL 25 MG TABCR PO (09:17)
[2022-11-18] MEDS: OLMESARTAN MEDOXOMIL 20 MG TABLET PO (09:17)
[2022-11-18] MEDS: APIXABAN 5 MG TABLET PO (09:17)
[2022-11-18] MEDS: PANTOPRAZOLE 40 MG TABLET PO (09:18)
[2022-11-18] MEDS: MUPIROCIN 2% OINT 22 GM TUBE 1 APPLIC TOPICAL ×2 (09:18→21:13)
[2022-11-18] MEDS: LORATADINE 10 MG TABLET PO (09:18)
[2022-11-18 09:26] LABS: Hematocrit 34.1 % (37.0-47.0); Hemoglobin 11.1 g/dL (12.0-15.0); Mean Corpuscular HGB Conc 32.6 g/dl (32-36); Mean Corpuscular Volume 92.2 fl (80-100); Mean Platelet Volume 9.4 fl (7.4-10.4); Platelet Count Result 238 k/mm3 (150-375); Red Cell Distribution Width 13.9 % (11.5-14.5); White Blood Count 13.4 K/mm3 (4.5-10.0)
[2022-11-18] MEDS: SODIUM CHLORIDE 0.9% IV 1,000 ML 100 ML IV CONT ×2 (09:35→21:12)
[2022-11-18] MEDS: ACETAMINOPHEN 325 MG TABLET 650 MG PO (09:38)
--- NOTE | 2022-11-18 14:33 | PM.PNGS ---
Progress Note: A&P Assessment and Plan (1) Cellulitis and abscess of left leg: Code(s): L03.116 - Cellulitis of left lower limb; L02.416 - Cutaneous abscess of left lower limb Status: Acute Assessment and Plan: The patient is improved after incision and drainage of a fairly large subcutaneous abscess in the left upper medial thigh region. The wound was packed and is now hemostatic. Cultures are pending. Removed the packing today and the wound appears to be clean without need for debridement of any other necrotic tissue. Induration seems to be decreasing and the erythema is decreased. Continue clindamycin IV for antibiotic therapy. Change the packing the wound daily. Will trend the white blood count and is lower today for decreasing from 20,000 admission to 13,000 today. Continue IV antibiotics and supportive care for now. No need for further drainage or debridement of the abscess cavity at this time. Subjective Subjective Date/Time Seen: 11/18/22 14:33 Patient reports: no new complaints, feels better and tolerating a regular diet Interval history: Patient has improved clinically. There is still drainage from the abscess cavity in the upper medial left thigh region and her white blood cell count has decreased down to 13,000. She remains afebrile. Review of Systems Review of Systems: The remainder of the review of systems to include constitutional, HEENT, cardiovascular, respiratory, GI, , integumentary, musculoskeletal, endocrine, immunologic, hematologic, psychiatric, and neurologic are all negative except for which is mentioned above in the HPI. Exam Const: General: cooperative and healthy appearing Resp: Effort & Inspection: normal respiratory effort and able to speak in complete sentences Cardio: Jugular venous distension: no JVD Rate: regular rate Rhythm: regular rhythm GI: GI Palp: No abdominal tenderness, No Abdominal aortic bruit present, No Soft to palpation, No Firmness to palpation present (GI), No Tenderness to palpation present (GI), No Guarding due to palpation present (GI), No Rigid due to palpation, No No hepatosplenomegaly present, No Hepatosplenomegaly present, No Hepatomegaly present, No Splenomegaly present, No Hernia present, No Palpable mass present, No Pulsatile mass present, No Aortic enlargement present, No Ascites present, No Carnett's sign positive, No Rebound tenderness present, No Bladder palpation abnormal and No Other GI palpation findings present Skin: Other: Wound in the upper medial left thigh region is draining seropurulent fluid. Continued induration is noted but the redness is improved. Mild tenderness is noted. Abscess cavity still measures approximately 3cm x 2cm x 2cm. Neuro: Cranial nerves: Yes CN's II-XII intact bilaterally Cognition (Neuro): normal cognition Speech: normal speech Psych: Appearance: grossly normal and well kempt Affect: normal affect Attitude: cooperative Insight: Good insight present (Psych) Judgement: Good judgement present (Psych) Objective Data Vital Signs Vital Signs: Vital Signs - 24 hr 11/17/22 15:37 11/17/22 19:47 11/17/22 20:00 Temperature 36.6 C 36.4 C Pulse Rate 116 H 108 H Respiratory Rate 19 16 Blood Pressure 106/46 L 140/57 L Pulse Oximetry 97 97 Oxygen Delivery Room Air 11/17/22 23:44 11/18/22 00:00 11/18/22 04:11 Temperature Pulse Rate 92 85 97 Respiratory Rate Blood Pressure Pulse Oximetry Oxygen Delivery 11/18/22 05:05 11/18/22 09:17 11/18/22 08:00 Temperature 36.6 C Pulse Rate 88 102 H 82 Respiratory Rate 16 Blood Pressure 130/47 L Pulse Oximetry 98 Oxygen Delivery 11/18/22 12:00 Temperature Pulse Rate 85 Respiratory Rate Blood Pressure Pulse Oximetry Oxygen Delivery Intake/Output Intake/Output: Intake & Output 11/15/22 11/16/22 11/17/22 11/18/22 23:59 23:59 23:59 23:59 Intake Total 340 2090 Output Total 700
--- NOTE | 2022-11-18 14:40 | PM.PNGS ---
Subjective Subjective Date/Time Seen: 11/18/22 14:40 Patient reports: no new complaints, feels better and tolerating a regular diet Interval history: Patient has improved clinically. There is still drainage from the abscess cavity in the upper medial left thigh region and her white blood cell count has decreased down to 13,000. She remains afebrile. Objective Data Vital Signs Vital Signs: Vital Signs - 24 hr 11/17/22 15:37 11/17/22 19:47 11/17/22 20:00 Temperature 36.6 C 36.4 C Pulse Rate 116 H 108 H Respiratory Rate 19 16 Blood Pressure 106/46 L 140/57 L Pulse Oximetry 97 97 Oxygen Delivery Room Air 11/17/22 23:44 11/18/22 00:00 11/18/22 04:11 Temperature Pulse Rate 92 85 97 Respiratory Rate Blood Pressure Pulse Oximetry Oxygen Delivery 11/18/22 05:05 11/18/22 09:17 11/18/22 08:00 Temperature 36.6 C Pulse Rate 88 102 H 82 Respiratory Rate 16 Blood Pressure 130/47 L Pulse Oximetry 98 Oxygen Delivery 11/18/22 12:00 Temperature Pulse Rate 85 Respiratory Rate Blood Pressure Pulse Oximetry Oxygen Delivery Intake/Output Intake/Output: Intake & Output 11/15/22 11/16/22 11/17/22 11/18/22 23:59 23:59 23:59 23:59 Intake Total 340 2090 Output Total 700 Balance -360 2090 Meds/Results Medications: Active Medications Generic Name Dose Route Start Last Admin Trade Name Freq PRN Reason Stop Dose Admin Acetaminophen 650 mg 11/17/22 14:55 11/18/22 09:38 Acetaminophen 325 Mg Tablet PO 650 mg Q6H PRN Administration Mild Pain (1-3) or Fever Albuterol 2 puff 11/17/22 20:33 Albuterol Sulfate (*Sp) Aerosol 1 Puff INHALATION Q4HRT PRN Shortness Of Breath Alprazolam 0.25 mg 11/17/22 20:33 Alprazolam (*Crx) 0.25 Mg Tablet PO BID PRN anxiey Apixaban 5 mg 11/18/22 09:00 11/18/22 09:17 Apixaban 5 Mg Tablet PO 5 mg DAILY DEA Administration Clindamycin Phosphate 600 mg in 50 mls @ 100 mls/hr 11/17/22 18:00 11/18/22 10:06 Clindamycin 600 Mg/D5w 50 Ml IVPB Infused Q8H DEA Infusion Sodium Chloride 1,000 mls @ 100 mls/hr 11/17/22 14:55 11/18/22 09:35 Normal Saline Iv IV CONT 100 mls/hr .Q10H DEA Administration Loratadine 10 mg 11/18/22 09:00 11/18/22 09:18 Loratadine 10 Mg Tablet PO 12/18/22 08:59 10 mg DAILY DEA Administration Metoprolol Succinate 25 mg 11/18/22 09:00 11/18/22 09:17 Metoprolol Succinate Ext Rel 25 Mg Tabcr PO 25 mg DAILY DEA Administration Mupirocin 1 applic 11/17/22 21:00 11/18/22 09:18 Mupirocin 2% Oint 22 Gm Tube TOPICAL 1 applic Q12HR DEA Administration Olmesartan 20 mg 11/18/22 09:00 11/18/22 09:17 Olmesartan Medoxomil 20 Mg Tablet PO 20 mg DAILY [facility] Administration Pantoprazole Sodium 40 mg 11/17/22 20:33 11/18/22 09:18 Pantoprazole 40 Mg Tablet PO 40 mg DAILY PRN Administration Acid Reflux Saccharomyces Boulardii 250 mg 11/17/22 17:00 11/17/22 18:37 Saccharomyces Boulardii 250 Mg Capsule PO 250 mg BID DEA Administration Fluticasone/Salmeterol 2 puff 11/17/22 20:33 Fluticasone/Salmeterol 115-21 Mcg Inhaler 1 Puff INHALATION Q12H PRN sob Spironolactone 25 mg 11/19/22 09:00 Spironolactone 25 Mg Tablet PO DAILY [facility] Tramadol HCl 50 mg 11/17/22 20:33 11/17/22 22:10 Tramadol Hcl (*Crx) 50 Mg Tablet PO 50 mg Q6H PRN Administration Pain 4-6 Labs Labs: Laboratory Results - last 24 hr 11/17/22 11/17/22 11/17/22 15:50 18:42 18:43 WBC RBC Hgb Hct MCV MCH MCHC RDW Plt Count MPV Sodium 124 L Potassium 3.8 Chloride 96 L Carbon Dioxide 21 L Anion Gap 7 L BUN 12 Creatinine 0.70 Estim Creat Clear Calc 91 Estimated GFR > 60 Glucose 146 H Lactic Acid 1.5 Calcium 8.6 Magnesium Total Bilirubin AST ALT Alkaline Phosphatase Total Protein
--- NOTE | 2022-11-18 15:05 | PM.IMPN ---
Progress Note: A&P Assessment and Plan (1) Sepsis: Code(s): A41.9 - Sepsis, unspecified organism Status: Acute Assessment and Plan: Present on admission supported by low-grade fever, tachycardia, and leukocytosis in the setting infection. Lactic acid levels within normal limits. Blood pressures have been stable. Blood and wound cultures have been obtained and are pending. 11/18/2022 interval history: Patient with left medial thigh abscess status post I&D in the ER, patient states feeling better the pain and swelling is improved, patient is being treated with IV clindamycin seen by surgery service recommended to change the dressing daily, patient white counts are trending down, will follow wound and blood culture and further recommendation to, follow, will have a PT OT evaluate the patient will continue to monitor. (2) Cellulitis and abscess of left leg: Code(s): L03.116 - Cellulitis of left lower limb; L02.416 - Cutaneous abscess of left lower limb Status: Acute Assessment and Plan: She has a multitude of antibiotic allergies and has been started on clindamycin. Follow-up wound culture. (3) Hyponatremia: Code(s): E87.1 - Hypo-osmolality and hyponatremia Status: Inactive Assessment and Plan: She has chronic hyponatremia which is a bit worse today, likely due to poor oral intake. She will be hydrated overnight with close monitoring of volume status. Repeat sodium this evening to ensure it is correcting appropriately. Check TSH, urine and serum osmolalities, and urine sodium. (4) Atrial fibrillation: Qualifiers: Atrial fibrillation type: unspecified Qualified Code(s): I48.91 - Unspecified atrial fibrillation Code(s): I48.91 - Unspecified atrial fibrillation Status: Acute Assessment and Plan: Currently sounds to be in atrial fibrillation with rapid ventricular response. Her rate has improved somewhat with IV fluids. Continue metoprolol for rate control. 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 (6) Obstructive sleep apnea on CPAP: Code(s): G47.33 - Obstructive sleep apnea (adult) (pediatric); Z99.89 - Dependence on other enabling machines and devices Status: Acute Assessment and Plan: CPAP will be provided for the patient to use while hospitalized. (7) Essential hypertension: Code(s): I10 - Essential (primary) hypertension Status: Acute Assessment and Plan: Blood pressures were reviewed and they have been stable. Antihypertensives will be reviewed and resumed as appropriate. Subjective Date/time seen: 11/18/22 15:05 Interval history: Left thigh wound. HPI-Narrative: This is a very pleasant 72-year-old female with hypertension, atrial fibrillation on chronic anticoagulation, obstructive sleep apnea, and morbid obesity who presented to the emergency department via private vehicle from home for evaluation of a left thigh wound. The patient provides the following history. She was on the toilet for an extended period of time on Sunday and when she went to stand up she was having discomfort in the middle of the left thigh. The following day she reports increasing pain in the left thigh with pain radiating down the entire leg. She could hardly walk the next day due to the pain. She has since developed a subjective fever and she reports that her appetite has been a bit decreased. In the ED the area was incised and drained and a wound culture has been obtained. She was started on clindamycin given her multitude of antibiotics and she is being admitted in this setting for further treatment and surgery consultation for possible debridement if deemed necessary. She denies nausea, vomiting, and diarrhea.? No known history of MRSA or other drug resistant organis
[2022-11-19] VITALS (10 sets, daily range): BP systolic 108–120; BP diastolic 51–60; PULSE 77–94; RESP 16–20; TEMP 36.6–37; O2SAT 97–100
[2022-11-19] MEDS: CLINDAMYCIN 600 MG/D5W 50 ML 600 MG/50 ML PIGGYBACK 100 MG IVPB ×3 (01:40→18:55)
[2022-11-19 06:04] LABS: Hematocrit 32.1 % (37.0-47.0); Hemoglobin 10.7 g/dL (12.0-15.0); Mean Corpuscular HGB Conc 33.3 g/dl (32-36); Mean Corpuscular Hemoglobin 29.8 pg (26-34); Mean Corpuscular Volume 89.4 fl (80-100); Mean Platelet Volume 9.5 fl (7.4-10.4); Platelet Count Result 223 k/mm3 (150-375); Red Blood Count 3.59 M/mm3 (4.2-5.4); Red Cell Distribution Width 13.8 % (11.5-14.5); White Blood Count 10.4 K/mm3 (4.5-10.0)
[2022-11-19 06:19] LABS: Anion Gap 6 mmol/L (8-16); Blood Urea Nitrogen 9 mg/dL (7-17); Calcium 7.8 mg/dL (8.4-10.2); Carbon Dioxide 23 mmol/L (22-30); Chloride 94 mmol/L (98-107); Estimated CRCL calculation 108 ml/min; Estimated Glomerular Filt Rate > 60; Glucose 100 mg/dL (65-110); Magnesium 1.8 mg/dL (1.6-2.3); Potassium 3.6 mmol/L (3.4-5.0); Sodium 123 mmol/L (137-145)
[2022-11-19] MEDS: APIXABAN 5 MG TABLET PO (08:59)
[2022-11-19] MEDS: SPIRONOLACTONE 25 MG TABLET PO (08:59)
[2022-11-19] MEDS: OLMESARTAN MEDOXOMIL 20 MG TABLET PO (08:59)
[2022-11-19] MEDS: SACCHAROMYCES BOULARDII 250 MG CAPSULE PO ×2 (08:59→17:04)
[2022-11-19] MEDS: SODIUM CHLORIDE 0.9% IV 1,000 ML 100 ML IV CONT (09:07)
[2022-11-19] MEDS: METOPROLOL SUCCINATE EXT REL 25 MG TABCR PO (10:28)
[2022-11-19] MEDS: ACETAMINOPHEN 325 MG TABLET 650 MG PO (10:28)
--- NOTE | 2022-11-19 15:10 | PM.IMPN ---
Progress Note: A&P Assessment and Plan (1) Sepsis: Code(s): A41.9 - Sepsis, unspecified organism Status: Acute Assessment and Plan: Present on admission supported by low-grade fever, tachycardia, and leukocytosis in the setting infection. Lactic acid levels within normal limits. Blood pressures have been stable. Blood and wound cultures have been obtained and are pending. 11/19/2022 interval history: Patient with left medial thigh abscess status post I&D in the ER, patient states feeling better the pain and swelling is improved, patient is being treated with IV clindamycin seen by surgery service recommended to change the dressing daily, patient white counts are trending down, today 10.4 compared to 20.3 upon arrival, wound culture is growing Group B streptococcus and blood culture no growth so far, and will monitor and further recommendation to follow, patient with chronic history of hyponatremia will place the patient on fluid restriction and monitor sodium level, will have a PT OT evaluate the patient will continue to monitor. (2) Cellulitis and abscess of left leg: Code(s): L03.116 - Cellulitis of left lower limb; L02.416 - Cutaneous abscess of left lower limb Status: Acute Assessment and Plan: She has a multitude of antibiotic allergies and has been started on clindamycin. Follow-up wound culture. (3) Hyponatremia: Code(s): E87.1 - Hypo-osmolality and hyponatremia Status: Inactive Assessment and Plan: She has chronic hyponatremia which is a bit worse today, likely due to poor oral intake. She will be hydrated overnight with close monitoring of volume status. Repeat sodium this evening to ensure it is correcting appropriately. Check TSH, urine and serum osmolalities, and urine sodium. (4) Atrial fibrillation: Qualifiers: Atrial fibrillation type: unspecified Qualified Code(s): I48.91 - Unspecified atrial fibrillation Code(s): I48.91 - Unspecified atrial fibrillation Status: Acute Assessment and Plan: Currently sounds to be in atrial fibrillation with rapid ventricular response. Her rate has improved somewhat with IV fluids. Continue metoprolol for rate control. (5) Anticoagulant long-term use: Code(s): Z79.01 - buttermaker helper (current) use of anticoagulants Status: Acute Assessment and Plan: Continue apixaban for stroke prophylaxis. (6) Obstructive sleep apnea on CPAP: Code(s): G47.33 - Obstructive sleep apnea (adult) (pediatric); Z99.89 - Dependence on other enabling machines and devices Status: Acute Assessment and Plan: CPAP will be provided for the patient to use while hospitalized. (7) Essential hypertension: Code(s): I10 - Essential (primary) hypertension Status: Acute Assessment and Plan: Blood pressures were reviewed and they have been stable. Antihypertensives will be reviewed and resumed as appropriate. Subjective Date/time seen: 11/19/22 15:10 Interval history: Left thigh wound. HPI-Narrative: This is a very pleasant 72-year-old female with hypertension, atrial fibrillation on chronic anticoagulation, obstructive sleep apnea, and morbid obesity who presented to the emergency department via private vehicle from home for evaluation of a left thigh wound. The patient provides the following history. She was on the toilet for an extended period of time on Sunday and when she went to stand up she was having discomfort in the middle of the left thigh. The following day she reports increasing pain in the left thigh with pain radiating down the entire leg. She could hardly walk the next day due to the pain. She has since developed a subjective fever and she reports that her appetite has been a bit decreased. In the ED the area was incised and drained and a wound culture has been obtained. She was started on clindamycin given her multitude of antibiotics and she is being
--- NOTE | 2022-11-19 15:55 | PM.PNGS ---
Progress Note: A&P Assessment and Plan (1) Cellulitis and abscess of left leg: Code(s): L03.116 - Cellulitis of left lower limb; L02.416 - Cutaneous abscess of left lower limb Status: Acute Assessment and Plan: Cellulitis is improving in the abscess is well drained. Packing was removed today and the wound is just covered with dry dressing. If it continues to look good tomorrow then I would recommend discharging home on oral antibiotics for another 7 days. She can follow-up in the office for wound check in 2 weeks. Subjective Subjective Date/Time Seen: 11/19/22 15:55 Interval history: Patient is doing well today. Pain in the left thigh abscess wound is decreasing. White blood cell count is down to normal now at 10,000. She has been afebrile. Exam Narrative: The left upper thigh wound is clean and there is less induration minimal redness. No purulent drainage. Minimal serous drainage. Resp: Effort & Inspection: normal respiratory effort Auscultation: clear to auscultation bilaterally Cardio: Rate: regular rate Rhythm: regular rhythm Neuro: Speech: normal speech Psych: Mental Status: mental status grossly normal Affect: normal affect Objective Data Vital Signs Vital Signs: Vital Signs - 24 hr 11/18/22 16:00 11/18/22 21:11 11/18/22 20:00 Temperature 36.6 C Pulse Rate 97 91 90 Respiratory Rate 18 Blood Pressure 121/48 L Pulse Oximetry 100 Oxygen Delivery 11/18/22 20:00 11/19/22 00:10 11/19/22 04:00 Temperature Pulse Rate 87 81 Respiratory Rate Blood Pressure Pulse Oximetry Oxygen Delivery Room Air 11/19/22 04:50 11/19/22 10:28 11/19/22 08:00 Temperature 36.6 C Pulse Rate 90 93 94 Respiratory Rate 20 Blood Pressure 120/51 L Pulse Oximetry 97 Oxygen Delivery 11/19/22 12:00 Temperature Pulse Rate 79 Respiratory Rate Blood Pressure Pulse Oximetry Oxygen Delivery Intake/Output Intake/Output: Intake & Output 11/16/22 11/17/22 11/18/22 11/19/22 23:59 23:59 23:59 23:59 Intake Total 340 4570 1950 Output Total 700 800 Balance -360 3770 1950 Meds/Results Medications: Active Medications Generic Name Dose Route Start Last Admin Trade Name Freq PRN Reason Stop Dose Admin Acetaminophen 650 mg 11/17/22 14:55 11/19/22 10:28 Acetaminophen 325 Mg Tablet PO 650 mg Q6H PRN Administration Mild Pain (1-3) or Fever Albuterol 2 puff 11/17/22 20:33 Albuterol Sulfate (*Sp) Aerosol 1 Puff INHALATION Q4HRT PRN Shortness Of Breath Alprazolam 0.25 mg 11/17/22 20:33 Alprazolam (*Crx) 0.25 Mg Tablet PO BID PRN anxiey Apixaban 5 mg 11/18/22 09:00 11/19/22 08:59 Apixaban 5 Mg Tablet PO 5 mg DAILY [facility] Administration Clindamycin Phosphate 600 mg in 50 mls @ 100 mls/hr 11/17/22 18:00 11/19/22 09:07 Clindamycin 600 Mg/D5w 50 Ml IVPB 100 mls/hr Q8H DE[facility] Administration Sodium Chloride 1,000 mls @ 100 mls/hr 11/17/22 14:55 11/19/22 09:07 Normal Saline Iv IV CONT 100 mls/hr .Q10H [facility] Administration Loratadine 10 mg 11/18/22 09:00 11/19/22 09:07 Loratadine 10 Mg Tablet PO 12/18/22 08:59 Not Given DAILY [facility] Metoprolol Succinate 25 mg 11/18/22 09:00 11/19/22 10:28 Metoprolol Succinate Ext Rel 25 Mg Tabcr PO 25 mg DAILY [facility] Administration Mupirocin 1 applic 11/17/22 21:00 11/18/22 21:13 Mupirocin 2% Oint 22 Gm Tube TOPICAL 1 applic Q12HR [facility] Administration Olmesartan 20 mg 11/18/22 09:00 11/19/22 08:59 Olmesartan Medoxomil 20 Mg Tablet PO 20 mg DAILY [facility] Administration Pantoprazole Sodium 40 mg 11/17/22 20:33 11/18/22 09:18 Pantoprazole 40 Mg Tablet PO 40 mg DAILY PRN Administration Acid Reflux Saccharomyces Boulardii 250 mg 11/17/22 17:00 11/19/22 08:59 Saccharomyces Boulardii 250 Mg Capsule PO 250 mg BID DEA Administration Fluticasone/Salmeterol 2 puff 11/17/22 20:33
[2022-11-19] MEDS: MUPIROCIN 2% OINT 22 GM TUBE 1 APPLIC TOPICAL ×2 (17:01→21:06)
[2022-11-20] VITALS (7 sets, daily range): BP systolic 108–137; BP diastolic 53–68; PULSE 73–93; RESP 16–20; TEMP 36.4–36.6; O2SAT 98–100
[2022-11-20] MEDS: CLINDAMYCIN 600 MG/D5W 50 ML 600 MG/50 ML PIGGYBACK 100 MG IVPB ×2 (02:20→09:08)
[2022-11-20] MEDS: ACETAMINOPHEN 325 MG TABLET 650 MG PO ×2 (02:22→09:15)
[2022-11-20] MEDS: ALBUTEROL SULFATE (*SP) AEROSOL 1 PUFF 2 PUFF INHALATION ×2 (02:40→09:06)
[2022-11-20 05:46] LABS: Hematocrit 31.9 % (37.0-47.0); Hemoglobin 10.7 g/dL (12.0-15.0); Mean Corpuscular HGB Conc 33.5 g/dl (32-36); Mean Corpuscular Volume 89.4 fl (80-100); Mean Platelet Volume 9.2 fl (7.4-10.4); Platelet Count Result 221 k/mm3 (150-375); Red Blood Count 3.57 M/mm3 (4.2-5.4); Red Cell Distribution Width 13.6 % (11.5-14.5)
[2022-11-20 05:59] LABS: Anion Gap 6 mmol/L (8-16); Blood Urea Nitrogen 11 mg/dL (7-17); Calcium 7.9 mg/dL (8.4-10.2); Carbon Dioxide 22 mmol/L (22-30); Chloride 96 mmol/L (98-107); Estimated CRCL calculation 108 ml/min; Estimated Glomerular Filt Rate > 60; Glucose 104 mg/dL (65-110); Magnesium 1.9 mg/dL (1.6-2.3); Potassium 3.8 mmol/L (3.4-5.0); Sodium 124 mmol/L (137-145)
[2022-11-20] MEDS: METOPROLOL SUCCINATE EXT REL 25 MG TABCR PO (09:06)
[2022-11-20] MEDS: APIXABAN 5 MG TABLET PO (09:06)
[2022-11-20] MEDS: SACCHAROMYCES BOULARDII 250 MG CAPSULE PO (09:07)
[2022-11-20] MEDS: OLMESARTAN MEDOXOMIL 20 MG TABLET PO (09:07)
[2022-11-20] MEDS: SPIRONOLACTONE 25 MG TABLET PO (09:08)
[2022-11-20] MEDS: MUPIROCIN 2% OINT 22 GM TUBE 1 APPLIC TOPICAL (09:08)
--- NOTE | 2022-11-20 15:34 | PM.PNGS ---
Progress Note: A&P Assessment and Plan (1) Cellulitis and abscess of left leg: Code(s): L03.116 - Cellulitis of left lower limb; L02.416 - Cutaneous abscess of left lower limb Status: Acute Assessment and Plan: Abscess adequately drained. Cellulitis continues to improve. Okay to discharge from a surgical standpoint and transition to oral antibiotics for another week. Recommend continued dry gauze dressing changes daily until seen in follow-up or no longer having any drainage. Follow-up with Dr. Dior in 2 weeks. Patient will be discharged home with home health and was educated today on how to change her dressing on her own on the other days as she does not have anyone who can help with this. She feels she can change this adequately. Plan I have discussed the patient's case and plan of care with Dr. Dior. Subjective Subjective Date/Time Seen: 11/20/22 13:34 Patient reports: no new complaints, feels better, pain is less and afebrile Interval history: This is a 72 yo F who presented with left thigh abscess and is s/p I&D in the ER. Chart reviewed. Patient reports feeling much better since I&D. This is still draining some but her pain and swelling has improved significantly. WBC normalized. She is afebrile. Patient does live at home alone without any help with dressing changes. She is adamant that she will be able to change the dressing herself on the days that home health will not come out for dressing changes. Review of Systems Review of Systems: All systems reviewed & are unremarkable except as noted in HPI and below Exam Const: General: no acute distress Orientation/consciousness: patient oriented x3 Skin: Other: Left upper inner thigh dressing removed. Small open wound open and draining scant amount of fritz drainage, appears to be adequately drained. Overall swelling and erythema appears to be improving. No areas of fluctuance. Objective Data Vital Signs Vital Signs: Vital Signs - 24 hr 11/19/22 16:00 11/19/22 19:33 11/19/22 20:25 Temperature 97.9 F Pulse Rate 83 79 77 Respiratory Rate 18 Blood Pressure 120/52 L Pulse Oximetry 100 Oxygen Delivery 11/20/22 00:00 11/20/22 04:30 11/20/22 04:30 Temperature 98 F Pulse Rate 84 79 74 Respiratory Rate 20 Blood Pressure 108/53 L Pulse Oximetry 98 Oxygen Delivery 11/20/22 09:06 11/20/22 08:00 11/20/22 15:08 Temperature Pulse Rate 93 73 Respiratory Rate Blood Pressure Pulse Oximetry Oxygen Delivery Room Air 11/20/22 14:00 Temperature 97.6 F Pulse Rate 88 Respiratory Rate 16 Blood Pressure 137/68 Pulse Oximetry 100 Oxygen Delivery Intake/Output Intake/Output: Intake & Output 11/17/22 11/18/22 11/19/22 11/20/22 23:59 23:59 23:59 23:59 Intake Total 340 4570 2770 1020 Output Total 700 800 Balance -360 3770 2770 1020 Meds/Results Medications: Active Medications Generic Name Dose Route Start Last Admin Trade Name Freq PRN Reason Stop Dose Admin Acetaminophen 650 mg 11/17/22 14:55 11/20/22 09:15 Acetaminophen 325 Mg Tablet PO 650 mg Q6H PRN Administration Mild Pain (1-3) or Fever Albuterol 2 puff 11/17/22 20:33 11/20/22 09:06 Albuterol Sulfate (*Sp) Aerosol 1 Puff INHALATION 2 puff Q4HRT PRN Administration Shortness Of Breath Alprazolam 0.25 mg 11/17/22 20:33 Alprazolam (*Crx) 0.25 Mg Tablet PO BID PRN anxiey Apixaban 5 mg 11/18/22 09:00 11/20/22 09:06 Apixaban 5 Mg Tablet PO 5 mg DAILY [facility] Administration Clindamycin Phosphate 600 mg in 50 mls @ 100 mls/hr 11/17/22 18:00 11/20/22 09:38 Clindamycin 600 Mg/D5w 50 Ml IVPB Infused Q8H [facility] Infusion Loratadine 10 mg 11/18/22 09:00 11/20/22 09:16 Loratadine 10 Mg Tablet PO 12/18/22 08:59 Not Given DAILY [facility] Metoprolol Succinate 25 mg 11/18/22 09:00 11/20/22 09:06 Metoprolol Succinate Ext Rel 25 Mg Tabcr PO 25 mg DAILY [facility] Admin
--- NOTE | 2022-11-20 16:31 | PM.DS ---
DS: Admitting Diagnosis Discharge Date 11/20/2022 Admitting Diagnosis Left thigh wound. DS: Discharge Diagnosis Discharge Diagnosis (1) Sepsis: Code(s): A41.9 - Sepsis, unspecified organism Status: Acute Assessment and Plan: Present on admission supported by low-grade fever, tachycardia, and leukocytosis in the setting infection. Lactic acid levels within normal limits. Blood pressures have been stable. Blood and wound cultures have been obtained and are pending. 11/19/2022 interval history: Patient with left medial thigh abscess status post I&D in the ER, patient states feeling better the pain and swelling is improved, patient is being treated with IV clindamycin seen by surgery service recommended to change the dressing daily, patient white counts are trending down, today 10.4 compared to 20.3 upon arrival, wound culture is growing Group B streptococcus and blood culture no growth so far, and will monitor and further recommendation to follow, patient with chronic history of hyponatremia will place the patient on fluid restriction and monitor sodium level, will have a PT OT evaluate the patient will continue to monitor. (2) Cellulitis and abscess of left leg: Code(s): L03.116 - Cellulitis of left lower limb; L02.416 - Cutaneous abscess of left lower limb Status: Acute Assessment and Plan: She has a multitude of antibiotic allergies and has been started on clindamycin. Follow-up wound culture. (3) Hyponatremia: Code(s): E87.1 - Hypo-osmolality and hyponatremia Status: Inactive Assessment and Plan: She has chronic hyponatremia which is a bit worse today, likely due to poor oral intake. She will be hydrated overnight with close monitoring of volume status. Repeat sodium this evening to ensure it is correcting appropriately. Check TSH, urine and serum osmolalities, and urine sodium. (4) Atrial fibrillation: Qualifiers: Atrial fibrillation type: unspecified Qualified Code(s): I48.91 - Unspecified atrial fibrillation Code(s): I48.91 - Unspecified atrial fibrillation Status: Acute Assessment and Plan: Currently sounds to be in atrial fibrillation with rapid ventricular response. Her rate has improved somewhat with IV fluids. Continue metoprolol for rate control. (5) Anticoagulant long-term use: Code(s): Z79.01 - long term care pharmacist (current) use of anticoagulants Status: Acute Assessment and Plan: Continue apixaban for stroke prophylaxis. (6) Obstructive sleep apnea on CPAP: Code(s): G47.33 - Obstructive sleep apnea (adult) (pediatric); Z99.89 - Dependence on other enabling machines and devices Status: Acute Assessment and Plan: CPAP will be provided for the patient to use while hospitalized. (7) Essential hypertension: Code(s): I10 - Essential (primary) hypertension Status: Acute Assessment and Plan: Blood pressures were reviewed and they have been stable. Antihypertensives will be reviewed and resumed as appropriate. DS: Summary Hospital Course Reason for hospitalization: Left thigh wound. Narrative: This is a very pleasant 72-year-old female with hypertension, atrial fibrillation on chronic anticoagulation, obstructive sleep apnea, and morbid obesity who presented to the emergency department via private vehicle from home for evaluation of a left thigh wound. The patient provides the following history. She was on the toilet for an extended period of time on Sunday and when she went to stand up she was having discomfort in the middle of the left thigh. The following day she reports increasing pain in the left thigh with pain radiating down the entire leg. She could hardly walk the next day due to the pain. She has since developed a subjective fever and she reports that her appetite has been a bit decreased. In the ED the area was incised and drained and a wound culture has been obtai
[2022-11-22 22:33] LABS: Osmolality, Urine 270 mOsm/kg (50-1200)
== END 2022-11-20 17:55 | disposition home or self-care (01) ==
LOC: ANHED 07:45 → ANH3MEDSUR 11:11 → ANH3MED 15:09
PROVIDERS: Physician Assistant; Admitting Provider Family Medicine; Emergency Provider Emergency Medicine; PCP Family Medicine; Visit Provider Family Medicine
DX: A41.9 Sepsis, unspecified organism (principal); L03.116 Cellulitis of left lower limb; L02.416 Cutaneous abscess of left lower limb; B95.1 Streptococcus, group B, as the cause of diseases classified elsewhere; E87.1 Hypo-osmolality and hyponatremia; I11.9 Hypertensive heart disease without heart failure; K21.9 Gastro-esophageal reflux disease without esophagitis; K44.9 Diaphragmatic hernia without obstruction or gangrene; J45.909 Unspecified asthma, uncomplicated; I48.91 Unspecified atrial fibrillation; E66.01 Morbid (severe) obesity due to excess calories; Z68.43 Body mass index [BMI] 50.0-59.9, adult; G47.33 Obstructive sleep apnea (adult) (pediatric); Z99.89 Dependence on other enabling machines and devices; D72.829 Elevated white blood cell count, unspecified; M19.90 Unspecified osteoarthritis, unspecified site; F41.9 Anxiety disorder, unspecified; R06.02 Shortness of breath; Z79.82 Long term (current) use of aspirin; Z79.1 Long term (current) use of non-steroidal anti-inflammatories (NSAID); Z79.01 Long term (current) use of anticoagulants; Z79.52 Long term (current) use of systemic steroids; Z79.891 Long term (current) use of opiate analgesic; Z79.51 Long term (current) use of inhaled steroids; Z79.899 Other long term (current) drug therapy; Z82.49 Family history of ischemic heart disease and other diseases of the circulatory system
CPT/HCPCS: 10061; 36415; 80048; 80053; 81001; 82570; 83605; 83735; 83930; 83935; 84300; 84443; 85025; 85027; 87040; 87070; 87147; 87205; 96361; 96365; 96366; 96367; 97161; 97165; 99285; A9270; G0378; J0131; J7030

== ENCOUNTER 2023-02-06 10:26 | Outpatient (RCR) | payer MEDICARE, MEDICAID, SELFPAY ==
--- NOTE | 2023-02-06 11:34 | PTOPEVDC ---
Assessment and note entered by Nain Doyle, PT Thank you for referring Madeline Richards to [facility].? An evaluation has been completed. No further treatment is needed. Evaluation Information Assessment Status Evaluation Diagnosis Unsteadiness on her feet Subjective Information Patient reports she does not know why she is here in physical therapy. She states she only has balance issues when she has a flare up of her asthma, CHF, and lymphedema all at once. She does admit to one fall, but that was trying to reach over for her cell phone in the dark. Also uses a quad cane when out of the house, but that is not new. Patient agreeable to do a quick balance assessment on her. She also reports being offered home health physical therapy to work on her balance this November and December, but declining at that time. Reported Pain Level Pain Score 0: Self Report Assessment PT Clinical Summary Madeline is a 72 year old female coming into the clinic with a diagnosis of unsteadiness on her feet. Patient has a Tinetti score of 24/28 which is indicative for a low risk of falls. Appears safe on her feet, endurance is limited secondary to medical comorbidities, but she reports she does not want to work on that at this time. At this time do not recommend further physical therapy for balance, but patient knows she can ask her doctor to come back if other issues arise. Plan of Care PT Services Indicated No Treatment Frequency and Discharged from skilled physical therapy. Duration
== END 2023-02-06 15:13 | disposition home or self-care (01) ==
LOC: ANHPT 10:26
PROVIDERS: PCP Family Medicine; Visit Provider Physician Assistant
DX: R26.81 Unsteadiness on feet (principal)
CPT/HCPCS: 97161

== ENCOUNTER 2023-02-08 09:23 | Outpatient (RCR) | payer MEDICARE, MEDICAID, SELFPAY ==
[2023-02-08 09:45] VITALS: BMI 51.3
== END 2023-04-26 13:47 | disposition home or self-care (01) ==
LOC: ANHWOC 09:23
PROVIDERS: PCP Family Medicine; Visit Provider Physician Assistant
DX: L03.115 Cellulitis of right lower limb (principal); I89.0 Lymphedema, not elsewhere classified
CPT/HCPCS: 99212; G0463

== ENCOUNTER 2023-05-04 07:43 | Emergency (ER) | payer MEDICARE, SELFPAY ==
--- NOTE | ~2023-05-04 | XR_ITS ---
EXAMINATION: XR chest 1V portable DATE: 05/04/2023 09:10 INDICATION: Shortness of breath. TECHNIQUE: A single frontal view of the chest was obtained. COMPARISON: Chest 2 views 09/19/2021, CT abdomen and pelvis 11/09/2020 FINDINGS: The lung volumes are normal. There is a diffuse interstitial pattern in the lungs with a pe ripheral and lower lung predominance. Calcified right lung nodules and calcified right hilar and medi astinal lymph nodes are consistent with old granulomatous disease. No pleural effusion or pneumothora x. Cardiomegaly is noted. IMPRESSION: 1. Worsened diffuse interstitial pattern in the lungs, consistent with chronic interstitial lung dise ase without or with superimposed mild pulmonary edema. 2. Cardiomegaly. Reviewed, dictated and finalized at location A. IMPRESSION: 1. Worsened diffuse interstitial pattern in the lungs, consistent with chronic interstitial lung disease without or with superimposed mild pulmonary edema. 2. Cardiomegaly.
[2023-05-04 07:43] VITALS: BP 137/80; PULSE 81; RESP 17; TEMP 36.4; O2SAT 100
[2023-05-04 08:23] VITALS: BP 126/67; PULSE 81; RESP 20; O2SAT 100
[2023-05-04 08:28] LABS: Basophils Absolute Auto 0.1 K/mm3 (0.0-0.1); Basophils Percent Auto 0.8 % (0.2-1.2); Eosinophils Absolute Auto 0.1 K/mm3 (0-0.3); Eosinophils Percent Auto 0.9 % (0-4.4); Hematocrit 38.7 % (37.0-47.0); Immature Granulocyte Absolute 0.03 K/mm3 (0.00-0.031); Immature Granulocyte Percent A 0.4 % (0-0.5); Lymphocytes Absolute Auto 1.18 K/mm3 (0.9-3.2); Lymphocytes Percent Auto 15.5 % (18.3-44.2); Mean Corpuscular HGB Conc 33.6 g/dl (32-36); Mean Corpuscular Hemoglobin 30.4 pg (26-34); Mean Corpuscular Volume 90.4 fl (80-100); Mean Platelet Volume 9.8 fl (7.4-10.4); Monocytes Absolute Auto 0.7 K/mm3 (0.1-0.6); Monocytes Percent Auto 9.3 % (2.6-8.5); Neutrophils Absolute Auto 5.6 K/mm3 (1.3-6.7); Neutrophils Percent Auto 73.1 % (45.5-73.1); Platelet Count Result 265 k/mm3 (150-375); Red Blood Count 4.28 M/mm3 (4.2-5.4); Red Cell Distribution Width 13.8 % (11.5-14.5); White Blood Count 7.6 K/mm3 (4.5-10.0)
--- NOTE | 2023-05-04 08:33 | ED.GENADULT ---
HPI - General Adult General Chief complaint: Urogenital-Female Stated complaint: inability to urinate Time Seen by Provider: 05/04/23 07:47 History of Present Illness HPI narrative: 72-year-old female presented the emergency department for evaluation of decreased urinary output. Patient states that she has been feeling ill for the course of the last week. Patient states she feels she has been eating and drinking adequately. Patient presented to the ED today due to decreased urine output. Related Data Home Medications Medication Instructions Recorded Confirmed acetaminophen 500 mg tablet 1,000 mg PO Q6H PRN arthritis pian 11/17/22 04/26/23 alprazolam 0.25 mg tablet 0.25 mg PO BID PRN anxiey 11/17/22 04/26/23 cetirizine 10 mg tablet 10 mg PO DAILY 11/17/22 04/26/23 omeprazole 20 mg capsule,delayed 20 mg PO DAILY PRN Acid Reflux 11/17/22 04/26/23 release spironolactone 25 mg tablet 25 mg PO DAILY 11/17/22 04/26/23 apixaban 5 mg tablet (Eliquis) 5 mg PO BID 01/25/23 04/26/23 Allergies Allergy/AdvReac Type Severity Reaction Status Date / Time celecoxib Allergy Unknown Skin Verified 05/04/23 07:57 Reaction cephalexin Allergy Unknown tightness Verified 05/04/23 07:57 in throat guaifenesin Allergy Unknown Asthma Verified 05/04/23 07:57 Penicillins Allergy Unknown Anaphylactic Verified 05/04/23 07:57 Shock Sulfa (Sulfonamide Allergy Unknown Anaphylactic Verified 05/04/23 07:57 Antibiotics) Shock sulfamethizole Allergy Unknown Swelling Verified 05/04/23 07:57 vancomycin Allergy Unknown ALLERGY Verified 05/04/23 07:57 diphtheria,pertussis AdvReac Severe respiratory Verified 05/04/23 07:57 (acellular),te distress, [From Adacel(Tdap chf Adolesn/Adult)(PF)] naproxen AdvReac Unknown Stomach Verified 05/04/23 07:57 ache Review of Systems Review of Systems: All systems reviewed & are unremarkable except as noted in HPI and below PMFSH Past Medical History Medical History Asthma Cholelithiasis Chronic acquired lymphedema Chronic atrial fibrillation Diastolic dysfunction Essential hypertension Gallstone pancreatitis (10/2020) Hiatal hernia Lumbar spondylosis Morbid obesity Obstructive sleep apnea on CPAP Surgical History Surgical History History of 2 sections History of tubal ligation Family History Family History Father Coronary artery disease Hypertension Lymphoma Gallbladder disease Mother Cervical cancer Breast cancer Lung cancer Social History Social History Social History: Surrogate medical decision maker: Ariadna Xavier, daughter. Code status: Full code. Smoking status: Never smoker Alcohol intake: never Substance use: former Substance use type: does not use Lack of Transportation: No Lack of Food: Sometimes True Current Housing: I Do Not Have Housing Concerned About Future Housing: No Difficulty Paying Gas/Electric Bills: No Difficulty Paying for Meds: No Currently Unemployed: No Education: Trade/Vocational Certificate Difficulty w/ Childcare or Family Care: No Living arrangements: alone Occupation/Education: retired Spiritual care concerns: No Exam Narrative: APPEARANCE: Well appearing, no pain, no distress, well-nourished. HEAD: normocephalic, atraumatic. EYES: PERRLA/EOMI, conjunctivae clear. NOSE: Normal no drainage NECK: Supple. No adenopathy, no masses. RESPIRATORY: Airway patent, respirations nonlabored. Clear to auscultation bilaterally, no rales, rhonchi, wheezing. CARDIOVASCULAR: Rate controlled A-fib ABDOMINAL: Soft, nontender, nondistended, normal bowel sounds MUSCULOSKELETAL: Moves all extremities. Strength/ROM intact, No edema, No calf tenderness
[2023-05-04 08:39] LABS: Alanine Aminotransferase 19 U/L (6-35); Albumin Level 4.2 g/dL (3.5-5.1); Alkaline Phosphatase 89 U/L (38-126); Anion Gap 8 mmol/L (8-16); Aspartate Amino Transferase 29 U/L (14-36); Blood Urea Nitrogen 7 mg/dL (7-17); Calcium 8.9 mg/dL (8.4-10.2); Carbon Dioxide 23 mmol/L (22-30); Chloride 98 mmol/L (98-107); Estimated CRCL calculation 90 ml/min; Estimated Glomerular Filt Rate > 60; Glucose 105 mg/dL (65-110); Potassium 3.6 mmol/L (3.4-5.0); Sodium 129 mmol/L (137-145)
[2023-05-04 08:57] VITALS: BP 137/74; PULSE 95; RESP 18; O2SAT 100
[2023-05-04 09:13] LABS: Appearance Urine Clear (Clear); Bacteria Urine None Seen /hpf; Bilirubin Urine Negative (Negative); Blood Urine Negative (Negative); Color Urine Yellow (Yellow); Glucose Urine UA Negative (Negative); Ketones Urine Negative (Negative); Leukocyte Esterase Ur Trace LEU/UL (Negative); Nitrate Urine Negative (Negative); Non Pathogenic Casts 0-2; Protein Urine Negative (Negative); RBC Urine 0-2 /hpf (0-2); Specific Grav Ur 1.007 (1.001-1.035); Squamous Epithelial Cell Urine None seen /hpf (Few); Urobilinogen Urine 0.2 mg/dL (<2.0); WBC Urine 0-5 /hpf; pH Urine 7.5 (5.0-9.0)
[2023-05-04 09:14] LABS: Influenza A QL RT-PCR Negative (Negative); Influenza B QL RT-PCR Negative (Negative); RSV RNA, RT-PCR Negative (Negative); SARS-CoV-2 RNA PCR Negative (Negative)
[2023-05-04 09:19] LABS: NT Pro B Type Natriuretic Pept 2670 pg/mL (19.9-100)
[2023-05-04 09:22] VITALS: BP 138/78; PULSE 83; RESP 20; O2SAT 100
[2023-05-04 09:36] LABS: Add Urine Microscopic? YES
--- NOTE | 2023-05-04 09:39 | ECG_ITS ---
Measurements Intervals [place] Rate: 78 P: DC: 0 QRS: 0 QRSD: 88 T: -4 QT: 356 QTc: 406 Interpretive Statements ATRIAL FIBRILLATION LOW QRS VOLTAGE IN PRECORDIAL LEADS [QRS DEFLECTION < 1.0 mV IN CHEST LEADS] POSSIBLE ANTERIOR MYOCARDIAL INFARCTION , PROBABLY OLD [30 ms Q WAVE IN V3/V4, OR R < 0.2 mV IN V4] ABNORMAL RHYTHM ECG COMPARED TO ECG 11/09/2020 21:09:12 NO SIGNIFICANT CHANGES Electronically Signed On 05-04-2023 14:00:13 CDT by Benjamín Curry M.D.
[2023-05-04 11:18] VITALS: BP 130/73; PULSE 88; RESP 15; O2SAT 100
[2023-05-04] MEDS: FUROSEMIDE INJ 40 MG/4 ML VIAL IV PUSH (11:35)
[2023-05-04 12:49] VITALS: BP 130/73; PULSE 88; RESP 22; O2SAT 99
== END 2023-05-04 12:35 | disposition home or self-care (01) ==
PROVIDERS: Emergency Provider Emergency Medicine; PCP Family Medicine
DX: R33.9 Retention of urine, unspecified (principal); Z20.822 Contact with and (suspected) exposure to COVID-19; J45.909 Unspecified asthma, uncomplicated; I48.20 Chronic atrial fibrillation, unspecified; I10 Essential (primary) hypertension; I89.0 Lymphedema, not elsewhere classified; G47.33 Obstructive sleep apnea (adult) (pediatric); E66.01 Morbid (severe) obesity due to excess calories; Z68.42 Body mass index [BMI] 45.0-49.9, adult; Z79.01 Long term (current) use of anticoagulants; I51.7 Cardiomegaly; R91.8 Other nonspecific abnormal finding of lung field
CPT/HCPCS: 36415; 71045; 80053; 81001; 83880; 85025; 87637; 93005; 96374; 99284; J1940

== ENCOUNTER → 2023-05-07 14:41 | Outpatient (CLI) | payer MEDICARE, MEDICAID, SELFPAY ==
--- NOTE | ~2023-05-07 | CT_ITS ---
EXAMINATION: CT abdomen pelvis wo con DATE: 05/07/2023 15:16 INDICATION: Generalized abdominal pain. TECHNIQUE: Computed tomography (CT) of the abdomen and pelvis was performed without intravenous contr ast. Automated exposure control and iterative reconstruction technique were employed. The dose-length product was 1059.71 mGy-cm. COMPARISON: CT abdomen and pelvis 11/09/2020 FINDINGS: The visualized portions of the lung bases demonstrate peripheral reticular opacities, groun dglass opacities, and small airspace opacities with architectural distortion and mild bronchiectasis, stable 11/09/2020, consistent with chronic interstitial lung disease in a pattern of nonspecific inte rstitial pneumonia. No pleural effusion. Cardiomegaly is noted. There are coronary artery calcificati ons. No pericardial effusion. There is a 4 mm cyst in the liver. Calcifications in the spleen are con sistent with old granulomatous disease. There are changes of cholecystectomy. The pancreas and adrena l glands are normal. There is cortical thinning of the kidneys. There is no urolithiasis. There is a calcified uterine in the fibroid. There are no dilated loops of bowel. The appendix is not visualized . There is an umbilical hernia containing fat. There is a small sliding hiatal hernia. There are no p athologically enlarged lymph nodes. There is no free intraperitoneal fluid. There is a left inguinal hernia containing fat. There are chronic compression fractures of multiple vertebral bodies. There is moderate lumbar spondylosis. IMPRESSION: 1. Umbilical hernia containing fat. 2. Small sliding hiatal hernia. 3. Left inguinal hernia containing fat. 4. Stable chronic interstitial lung disease in a pattern of nonspecific interstitial pneumonia (NSIP) . Reviewed, dictated and finalized at location E. IMPRESSION: 1. Umbilical hernia containing fat. 2. Small sliding hiatal hernia. 3. Left inguinal hernia containing fat. 4. Stable chronic interstitial lung disease in a pattern of nonspecific interst itial pneumonia (NSIP).
== END ==
PROVIDERS: PCP Physician Assistant; Visit Provider Physician Assistant
DX: K42.9 Umbilical hernia without obstruction or gangrene (principal); K44.9 Diaphragmatic hernia without obstruction or gangrene; K40.90 Unilateral inguinal hernia, without obstruction or gangrene, not specified as recurrent; J84.9 Interstitial pulmonary disease, unspecified
CPT/HCPCS: 74176

== ENCOUNTER → 2023-08-24 09:51 | Outpatient (CLI) | payer MEDICARE, SELFPAY ==
--- NOTE | ~2023-08-24 | XR_ITS ---
XR chest 2V DATE: 08/24/2023 10:13 INDICATION: Mastodynia. History of interstitial lung disease TECHNIQUE: PA and lateral views COMPARISON: None FINDINGS: There is old pulmonary granulomatous disease. There is mild infiltrate in the right mid an d lower lung eid and mild infiltrate or atelectasis at the left lung base. There is borderline heart size. No hilar or mediastinal enlargement. There is diffuse osteopenia. IMPRESSION: Mild infiltrate in the right mid and both lower lung eid Reviewed, dictated and finalized at location B. MANAGER
== END ==
PROVIDERS: PCP Physician Assistant; Visit Provider Physician Assistant
DX: R91.8 Other nonspecific abnormal finding of lung field (principal); N64.4 Mastodynia
CPT/HCPCS: 71046

== ENCOUNTER 2024-03-28 12:13 | Outpatient (CLI) | payer MEDICARE, SELFPAY ==
--- NOTE | ~2024-03-28 | XR_ITS ---
Clinical Indication: Pneumonia PA and lateral views of the chest: Comparison: 08/24/2023 Findings: There is stable mild haziness in the right upper lobe as well as stable probable calcified right upper lobe granuloma. Left lung remains clear. Cardiomediastinal silhouette is within normal l imits. Bones and soft tissues are unremarkable. Impression: Stable hazy airspace disease right lung. Stability is inconsistent with typical bacterial pneumonia. Consider chronic pneumonias or other pulmonary disease. Consider chest CT to further evaluate as yuko cated. Reviewed, dictated and finalized at location . Impression: Stable hazy airspace disease right lung. Stability is inconsistent with typical bacterial pneumonia. Consider chronic pneumonias or other pulmonary disease. C onsider chest CT to further evaluate as indicated.
== END 2024-03-28 12:14 | disposition home or self-care (01) ==
PROVIDERS: PCP Family Medicine; Visit Provider Family Medicine
DX: J18.9 Pneumonia, unspecified organism (principal)
CPT/HCPCS: 71046

== ENCOUNTER 2024-04-30 08:59 | Outpatient (CLI) | payer MEDICARE, SELFPAY ==
--- NOTE | 2024-05-20 23:02 | P.SLEEP_ITS ---
Sleep Study Date of Study: 04/30/24 Ordering Provider: Eliot Brennan APRN Interpreting Physician: Juana Sanchez MD Sleep Study Type: CPAP Titration Height: 1.65 m Weight: 129.002 kg Body Mass Index: 47.3 Neck Circumference (inches): 18 [place]: 7 Reason for Sleep Study CPAP re-titration, wears CPAP at home Sleep History Madeline Richards is a 74-year-old female with congestive heart failure, atrial fibrillation, asthma and a history of pneumonia with sepsis. She was tested in 2017, was diagnosed with obstructive sleep apnea and has been on a CPAP machine since November of 2017. She has heavy snoring. She also uses Xanax to help her at night. She awakens from sleep feeling short of breath and with coughing and choking. This happens occasionally but sometimes more often. She frequently awakens at night with heartburn, belching or coughing. She does have a history of loud snoring but no longer lives with other people who complain about it. She frequently has difficulty sleeping with a cold. She occasionally wakes up gasping for breath at night. She rarely sweats excessively at night. She frequently notices her heart pounding irregularly at night. She occasionally falls asleep during the day, never involuntarily or while driving. She occasionally has loss of muscle tone with strong emotion. She does not have daytime difficulties due to excessive sleepiness because she no longer works. She rarely feels paralyzed on waking or falling asleep. She rarely has vivid dreamlike scenes upon awakening or falling asleep. She does not feel afraid to go to sleep. She occasionally has nightmares. She frequently remembers her dreams. She frequently has racing thoughts. She occasionally feels sad or depressed. She frequently has anxiety. She rarely has muscular tension. Occasionally, she notices parts of her body jerking. She does not kick at night . She rarely has crawling and aching feelings in her legs. She occasionally has leg pain during the night. She does not have morning jaw pain. She rarely grinds her teeth during sleep. She frequently is bothered by pain during the day. She rarely is awakened by pain at night. On occasion she wakes up feeling stiff in the morning. She occasionally wakes up with sore achy muscles. She frequently wakes up with pain in the neck and spine. She has GERD, memory problems and concentration difficulties. She has migraine headaches, nightmares, and constipation. Normal bedtime is between 10:00 p.m. and 11:00 p.m., falling asleep within 20 minutes, typically waking 4 times during the night. She may stay awake between 30 minutes or up to 45 minutes. On occasion, she is able to return to sleep quickly. Awakenings are due to trip to the bathroom, sometimes she reads her phone or watches television. Her normal time to awaken is between 2:30 a.m. and 4:30 a.m.. She keeps the same schedule on weekends. She estimates getting between 4 and 6 hours of sleep normally. She occasionally takes naps during the day. Sometimes, a short nap lasting 10-15 minutes may be refreshing. Habits: tobacco: Never smoker Caffeine: 16 oz to 32 oz per day Alcohol: none Recreational substances: none PMFSH Past Medical History Medical History Abdominal pain Abscess Acute hyponatremia Asthma Benign essential HTN Cellulitis and abscess of left leg Cellulitis of right lower leg Cholelithiasis Chronic acquired lymphedema Chronic atrial fibrillation Community acquired pneumonia Conjunctivitis Cough Diastolic dysfunction Essential hypertension Gallstone pancreatitis (10/2020) Hiatal hernia Injury of left ring finger Lumbar spondylosis Mastodynia of left breast Morbid obesity Obstructive sleep apnea uses her cpap Obstructive sleep apnea on CPAP Pneumonia Seborrheic dermatitis Sepsis Shortness of breath Unspecified open wound, left thigh, subsequent encounter UTI symptoms Viral conjunctivitis Wound of thigh Surgical History Surgical History History of 2 sections History of cataract surgery History of cholecystectomy (~2020) History of tubal ligation Family History Family History Father Coronary artery disease Hypertension Lymphoma Gallbladder disease Mother Cervical cancer Breast cancer Lung cancer Social History Social History Social History: Surrogate medical decision maker: Ariadna Xavier, daughter. Code status: Full code. Caffeine-soda Smoking status: Never smoker Alcohol intake: never Substance use: never Substance use type: does not use Do You Feel Safe in your Home?: Yes Lack of Transportation: No Lack of Food: Sometimes True Current Housing: I Do Not Have Housing Concerned About Future Housing: No Difficulty Paying Gas/Electric Bills: No Difficulty Paying for Meds: No Currently Unemployed: No Education: Trade/Vocational Certificate Difficulty w/ Childcare or Family Care: No Living arrangements: alone Occupation/Education: retired Spiritual care concerns: No Medications Home Medications Medication Instructions Recorded Confirmed Type acetaminophen 500 mg tablet 1,000 mg PO Q6H PRN arthritis pian 11/17/22 03/28/24 History cetirizine 10 mg tablet 10 mg PO DAILY 11/17/22 03/28/24 History alprazolam 0.25 mg tablet 0.25 mg PO BID PRN anxiety #60 tabs 06/27/23 03/28/24 Rx apixaban 5 mg tablet (Eliquis) 5 mg PO BID #180 tabs 10/08/23 03/28/24 Rx budesonide-formoterol HFA 160 2 puff inhalation Q12H #10.2 grams 12/31/23 03/28/24 Rx mcg-4.5 mcg/actuation aerosol inhaler (Symbicort) albuterol sulfate 90 mcg/actuation 2 puff inhalation Q4-6H PRN SOB 01/09/24 03/28/24 Rx aerosol inhaler #18 grams famotidine 10 mg tablet 10 mg PO DAILY PRN 02/07/24 03/28/24 History metoprolol succinate 25 mg 25 mg PO DAILY #90 tabs 03/21/24 03/28/24 Rx tablet,extended release 24 hr cyclobenzaprine 5 mg tablet 5 mg PO TID PRN muscle spasm #30 03/28/24 03/28/24 Rx tabs doxycycline hyclate 100 mg capsule 100 mg PO DAILY #14 caps 03/28/24 03/28/24 Rx hydrocodone 5 mg-acetaminophen 325 1 tablet PO Q8H PRN pain #20 tabs 03/28/24 03/28/24 Rx mg tablet olmesartan 20 mg tablet 20 mg PO DAILY #90 tabs 03/31/24 Rx spironolactone 25 mg tablet 25 mg PO BID #180 tabs 04/10/24 Rx Sleep Procedure A full CPAP polysomnogram using the [employer] multi-channel system recorded the standard physiologic parameters including EEG, EOG, submentalis EMG, anterior tibialis EMG, EKG, body position, nasal and oral airflow using nasal pressure sensor and thermistor. Respiratory parameters of chest and abdominal movements were recorded with Respiratory Inductance Plethysmography belts. Oxygen saturation was recorded by pulse oximetry. Video monitoring was also performed. Sleep stages, periodic limb movements, and EEG arousals were scored in 30 second epochs according to the criteria of the AASM Scoring Manual. The Apnea-Hypopnea Index was calculated using CMS guidelines for definition of hypopnea while scoring respiratory events. The patient was started on CPAP using a medium ResMed med AirFit F 30 I mask with an initial pressure of 7 cm for comfort, initially feeling that she was not getting enough air pressure. This was increased to 9 cm to see if the patient would fall asleep and have some consolidated sleep. This was turned up to CPAP 11 for an occasional obstructive hypopneas during REM. She had 4 bathroom breaks during the study. At CPAP 11, the patient spent 111.5 minutes in bed, 14.5 minutes awake, 88.5 minutes in non-REM and 8.5 minutes in REM. Sleep efficiency was 87%. The residual apnea-hypopnea index was 0.6 and the lowest saturation was 94%. On waking, the patient said that she felt more rested. Sleep Architecture The total recording time was 505.3 minutes. The total sleep time was 224.0 minutes. Sleep latency was 31.4 minutes. REM latency was 281.0 minutes. Sleep efficiency was 44.3%. The patient had 26 awakenings for an awakening index of 7.0. Wake after Sleep Onset time was 249.5 minutes. The patient spent 29.0 minutes, 12.9% of total sleep time in Stage N1. The patient spent 162.5 minutes, 72.5% in Stage N2. The patient spent 1.0 minutes, 0.4% in Stage N3. The patient spent 31.5 minutes, 14.1% in Stage REM. Respiratory Analysis The patient had 5 hypopneas, no obstructive, mixed or central apneas for an overall Apnea Hypopnea Index of 1.3 events per hour. The REM Apnea Hypopnea Index was 7.6. The NREM Apnea Hypopnea Index was 0.3. The patient had a Central Apnea Hypopnea Index of o. There were no Respiratory Effort Related Arousals. The Respiratory Disturbance Index is 1.6 events per hour. There was no evidence of Luis F-Benitez Respirations. Arousals There were 22 total arousals for an arousal index of 5.9. There were 18 spontaneous arousals for an index of 4.8. There were no arousals due to respiratory events. There were 3 arousals due to periodic limb movements for an index of 0.8. There were 1 arousals due to isolated limb movements for an index of 0.3. Periodic Limb Movements The patient had 1 isolated limb movements with an index of 0.3. The patient had 182 periodic limb movements with index of 48.8. Patient had a total of 183 limb movements with a total limb movement index of 49.0. Oximetry Data The patient had an average oxygen saturation of 97.3% in sleep with a minimum oxygen saturation of 91% and a maximum oxygen saturation of 100%. The patient had 7 oxygen desaturations that were 4% or greater resulting in an Oxygen Desaturation Index of 1.9. The patient spent no time with an oxygen saturation below 88%. Snoring Profile Snoring was not present during the titration. Cardiac Profile EKG showed atrial fibrillation with an average pulse rate of 73.5 bpm with a minimum pulse rate of 53 bpm and a maximum pulse rate of 92 bpm. No arrhythmias noted. EEG Profile EEG was unremarkable, no evidence of seizures. Assessment and Plan Assessment and Plan (1) Obstructive sleep apnea on CPAP: Code(s): G47.33 - Obstructive sleep apnea (adult) (pediatric); Z99.89 - Dependence on other enabling machines and devices Status: Acute Assessment and Plan: This full night CPAP titration on April 30, 2024 shows successful treatment using CPAP 11 cm of water pressure and Medium ResMed med AirFit F 30 I mask with heated humidity. The residual apnea-hypopnea index was 0.6 with a minimum saturation of 94% and excellent sleep efficiency of 87%. Overall the sleep efficiency for the night was low 44%, much improved using CPAP 11 cm. The patient should be prescribed this ResMed equipment as well as tubing, filters and reservoir. This should be used with all episodes of sleep. Compliance should be reviewed within 31-90 days of starting therapy for usage greater than 4 hours per night greater than 70% of the nights. The patient should be asked about symptoms such as excessive daytime sleepiness, quality of sleep, decreased nocturia, increased mental functioning such as memory, mood, and concentration. BMi is 47. Weight management is advised. Clinical data suggests that weight loss of 10% can reduce the severity of respiratory events and snoring and improve AHI by as much as 25%. She had a large number of leg movements in this titraiton, however these did not cause arousals. the leg movements were concentrated in the last portion of the night, and likely will disappear with routine PAP therapy. Data The data obtained during this sleep study is adequate for interpretation. Certification This sleep study has been reviewed by a board certified sleep medicine physician.
[2024-05-20 23:19] VITALS: BMI 47.3
== END 2024-05-01 07:21 | disposition home or self-care (01) ==
LOC: ANHCSM 09:00
PROVIDERS: PCP Family Medicine; Visit Provider Student in an Organized Health Care Education/Training Program
DX: G47.33 Obstructive sleep apnea (adult) (pediatric) (principal); I10 Essential (primary) hypertension; Z68.42 Body mass index [BMI] 45.0-49.9, adult; Z99.89 Dependence on other enabling machines and devices
CPT/HCPCS: 95811

== ENCOUNTER 2024-08-19 11:00 | Outpatient (CLI) | payer MEDICARE, SELFPAY ==
--- OUTSIDE RECORDS SUMMARY | 2024-08-19 12:11 | XMS_ITS | Continuity of Care Document ---
Author Organization [facility] Address [id number] [place] [address] [address] [place] [address] Phone Care Team Providers Care Rubber Goods Inspector Tester Name Role Phone Almas, Eddavid Unavailable Unavailable Advance Directives Directive Yes / No Effective Date File Name No Information Encounters Encounter Description Practice Location Reason(s) For Visit Diagnoses Date Provider Providers Copied on Encounter [facility], [address], [place], [place], [id number], [place] tel:[phone] [facility] No Information Sep- 7-200 0 Doisy Edward. [address] , [address], [place], [address], [place]. tel:[phone] Family History Family Member Type Diagnosis Age At Onset No Information Payers Payer name Insurance type Covered republican ID Authoriza tion(s) No Information Social History Type Description Quantity Date Captured Comments Sex Female Smoking Status No Information Chief Complaint And Reason For Visit No Information Reason For Referral Reason For Referral No Information History Of Present Illness Encounter Date Complaint History Of Prese nt Illness No Information Functional Status Date Functional Assessmen t No Information Instructions Date Instruction Additional Infor mation No Information Assessments Type Assessment Date No Information Patient Care Teams Name Effective Dates (start - stop) Status Members No Information
--- OUTSIDE RECORDS SUMMARY | 2024-08-19 12:11 | XMS_ITS | Referral Summary ---
Author Organization [facility] Address [address] [place] [address] Care Team Providers Care Metal Bonding Crib Attendant Name Role Phone Unavailable Primary Care Provider Unavailabl e Source Comments [facility],non-owned Affiliates and Associated Physician Practices is amultiple site organization consisting of ambulatory clinics and hospital sitesin [place], [place], [place] and [place]. This disclosure is being madepursuant to the Care Everywhere program and may not contain all information available regarding this patient. Last updated 18.[facility] Allergies Active Allergy Reactions Criticality Noted Date Comments Celecoxib Skin Reactions 11/12/2020 Dyline-Gg Other 11/12/2020 Tightness in throat Naproxen GI Discomfort 11/12/2020 Penicillins Anaphylaxis High 11/11/2020 Sulfa Drugs Anaphylaxis High 11/12/2020 Vancomycin Unknown 11/12/2020 Medications * Be aware that medications may not be up to date on this document. Alwaysverify current medications with the patient. Medication Sig Dispensed Refills Start Date End Date Status omeprazole (PRILOSEC) 20 MG capsuleIndicatio ns:Gastroesophag eal Reflux Disease Take 20 mg by mouth daily before breakfast Reasons: Gastroesophageal Reflux Disease 11/08/2020 Active spironolactone (ALDACTONE) 25 MG tabletIndication s:Edema Take 25 mg by mouth once daily Reasons: Edema 11/08/2020 Active metoprolol succinate XL 24hr (TOPROL XL) 25 MG tablet Take 25 mg by mouth once daily 11/08/2020 Active apixaban (ELIQUIS) 5 MG tablet Take 5 mg by mouth once daily Active olmesartan (BENICAR) 20 MG tablet Take 20 mg by mouth once daily Active albuterol HFA (PROVENTIL;MONSE PAPO;PROAIR) 108 (90 Base) MCG/ACT inhaler Inhale 2 puffs by mouth every 6 hours as needed Active budesonide-formo terol (SYMBICORT) 160-4.5 MCG/ACT inhaler Inhale 2 puffs by mouth 2 times daily Active HYDROcodone-acet aminophen (NORCO) 7.5-325 MG tablet Take 1 (one) tablet by mouth every 6 hours as needed for Pain 20 tablet 11/16/2020 Active polyethylene glycol 3350 (MIRALAX) 17 GM/SCOOP powder Take 17 (seventeen) g by mouth once daily 238 g 11/16/2020 Active docusate sodium (COLACE) 100 MG capsule Take 1 (one) capsule by mouth 2 times daily 60 capsule 2 11/16/2020 Active Active Problems Problem Noted Date Diagnosed Date Cholecystitis 11/11/2020 Social History Tobacco Use Types Packs/Day Years Used Date Smoking Tobacco: Never Smokeless Tobacco: Never Alcohol Use Standard Drinks/Week Comments Never 0 (1 standard drink = 0.6 oz pur e alcohol) Sex and Gender Information Value Date Recorded Sex Assigned at Not on file Gender Identity Not on file Sexual Orientation Not on file Last Filed Vital Signs Vital Sign Reading Time Taken Comments Blood Pressure 131/75 12/01/2020 1:19 PM CDT Pulse 94 12/01/2020 1:19 PM CDT Temperature 36.1 ??C (96.9 ??F) 12/01/2020 1:19 PM CD T Respiratory Rate 18 11/16/2020 8:25 AM CDT Oxygen Saturation 100% 11/16/2020 8:25 AM CDT Inhaled Oxygen Concentration - - Weight 136.1 kg (300 lb) 12/01/2020 1:19 PM CDT Height 165.1 cm (5' 5 ) 12/01/2020 1:19 PM CDT Body Mass Index 49.92 12/01/2020 1:19 PM CDT Functional Status Functional Status Response Date of Assess ment Is person deaf or have serious hearing difficult y? No 11/11/2020 Is person blind or have serious difficulty seein g? No 11/11/2020 Does person have serious dif ficulty walking/climbing stairs? Yes 11/11/2020 Does person have difficulty dressing/bathing? No 11/11/2020 Does person have difficulty doing errands alone? No 11/11/2020 Cognitive Status Response Date of Assessm ent Does person have difficulty concentrating/remembering/making decisions? No 11/11/2020 Plan of Treatment Not on file Procedures Procedure Name Priority Date/Time Associated Diagnosis Comments BASIC METABOLIC PANEL (CALCIUM TOTAL) AM Draw 11/16/2020 6:27 AM CDT from Last 3 Months or Most Recently Relevant to Health Maintenance Results * (ABNORMAL) BASIC METABOLIC PANEL (CALCIUM TOTAL) (11/16/2020 6:27 AM CDT) BUN 7 7 - 26 mg/dL 11/16/2020 7:16 AM [facility] Creatinine 0.7 0.6 - 1.2 mg/dL 11/16/2020 7:16 AM [facility] Sodium 132(L) 136 - 145 mmol/L 11/16/2020 7:16 AM [facility] Potassium 3.8 3.5 - 4.5 mmol/L 11/16/2020 7:16 AM [facility] Chloride 102 98 - 107 mmol/L 11/16/2020 7:16 AM [facility] CO2 22 22 - 29 mmol/L 11/16/2020 7:16 AM [facility] Glucose 125(H) 70 - 115 mg/dL 11/16/2020 7:16 AM [facility] Calcium 8.5 8.4 - 10.2 mg/dL 11/16/2020 7:16 AM [facility] Anion Gap 12 8 - 18 11/16/2020 7:16 AM [facility] BUN/Creatinine Ratio 10 7 - 23 11/16/2020 7:16 AM [facility] Osmolality Calculated 273 270 - 300 mOsm/kg 11/16/2020 7:16 AM [facility] eGFR >60 >60 mL/min/1.7 3 m2 11/16/2020 7:16 AM CDT [facility] Blood BLOOD SPECIMEN / Unknown Lab Venipuncture / Unknown 11/16/2020 6:27 AM CDT 11/16/2020 6:47 AM CDT Alessandro Tovar MD LAB - CHEMISTRY OR DERABLES Performing Organization Address City/State/[facility] Co de Phone Number [facility] [address] [place] [address], [facility] [phone] from Last 3 Months or Most Recently Relevant to Health Maintenance
--- OUTSIDE RECORDS SUMMARY | 2024-08-19 12:11 | XMS_ITS | Clinical Summary ---
Author Organization [facility] Address [address] [place] [address] Care Team Providers Care Global Sales Executive Name Role Phone Unavailable Primary Care Provider Unavailabl e Source Comments [facility],non-owned Affiliates and Associated Physician Practices is amultiple site organization consisting of ambulatory clinics and hospital sitesin [place], [place], [place] and [place]. This disclosure is being madepursuant to the Care Everywhere program and may not contain all information available regarding this patient. Last updated 18.[facility] Allergies Active Allergy Reactions Criticality Noted [...] Mass Index 49.92 12/01/2020 1:19 PM CDT Plan of Treatment Health Maintenance Due Date Last Done Comments BONE DENSITY TESTING 1952 COLOGUARD (AGES 45-75) - COLON CA SCREENING 1952 COLON MONITORING 1952 COLONOSCOPY - COLON CA SCREENING 1952 CT COLONOGRAPHY - COLON CA SCREENING 1952 Colorectal Cancer Screening 1950 FIT - COLON CA SCREENING 1952 FLEX SIG - COLON CA SCREENING 1952 LIPID TESTING 1950 MAMMOGRAM 1950 MEDICARE AWV ? 12 MONTHS 1952 HEPATITIS C SCREENING 05/11/1970 DTAP/TDAP/TD VACCINES (1 - Tdap) 1971 PNEUMOCOCCAL VACCINE 50+ (1 of 1 - PCV) 2002 ZOSTER VACCINE (1 of 2) 2002 Respiratory Syncytial Virus (RSV) Vaccine Pt: or over 60 yrs (1 - Risk 60-74 years 1-dose series) 2012 SCREENING FOR DIABETES 11/17/2023 , 11/15/2020, 11/14/2020, Additional history exists COVID-19 VACCINE ( season) 2024 INFLUENZA VACCINE (#1) 2024 DEPRESSION SCREENING 07/23/2024 HEPATITIS B VACCINE Aged Out No longe r eligible based on patient's age to complete this topic HIB VACCINE Aged Out No longer eligi ble based on patient's age to complete this topic HPV VACCINE Aged Out No longer eligi ble based on patient's age to complete this topic MENINGOCOCCAL (Group B) VACCINE Aged Out No longer eligible based on patient's age to complete this topic MENINGOCOCCAL VACCINE Aged Out No noman oli eligible based on patient's age to complete this topic Procedures Procedure Name Priority Date/Time Associated Diagnosis Comments BASIC METABOLIC PANEL (CALCIUM TOTAL) AM Draw 11/16/2020 6:27 AM CDT from Last 3 Months or Most Recently Relevant to Health Maintenance Results * (ABNORMAL) BASIC METABOLIC PANEL (CALCIUM TOTAL) (11/16/2020 6:27 AM CDT) BUN 7 7 - 26 mg/dL 11/16/2020 7:16 AM CDT [facility] Creatinine 0.7 0.6 - 1.2 mg/dL 11/16/2020 7:16 AM [facility] Sodium 132(L) 136 - 145 mmol/L 11/16/2020 7:16 AM [facility] Potassium 3.8 3.5 - 4.5 mmol/L 11/16/2020 7:16 AM [facility] Chloride 102 98 - 107 mmol/L 11/16/2020 7:16 AM [facility] CO2 22 22 - 29 mmol/L 11/16/2020 7:16 AM [facility] Glucose 125(H) 70 - 115 mg/dL 11/16/2020 7:16 AM [facility] Calcium 8.5 8.4 - 10.2 mg/dL 11/16/2020 7:16 AM [facility] Anion Gap 12 8 - 18 11/16/2020 7:16 AM [facility] BUN/Creatinine Ratio 10 7 - 23 11/16/2020 7:16 AM [facility] Osmolality Calculated 273 270 - 300 mOsm/kg 11/16/2020 7:16 AM [facility] eGFR >60 >60 mL/min/1.7 3 m2 11/16/2020 7:16 AM [facility] Blood BLOOD SPECIMEN / Unknown Lab Venipuncture / Unknown 11/16/2020 6:27 AM CDT 11/16/2020 6:47 AM T Alessandro Tovar MD LAB - CHEMISTRY OR DERABLES [facility] [address] [place] [address], [facility] [phone] from Last 3 Months or Most Recently Relevant to Health Maintenance
--- OUTSIDE RECORDS SUMMARY | 2024-08-19 12:11 | XMS_ITS | Patient Health Summary ---
Author Organization [facility] Address [address] [place] [address] Care Team Providers Care Box Icer Name Role Phone Unavailable Primary Care Provider Unavailabl e Note from [facility],non-owned Affiliates and Associated Physician Practices is amultiple site organization consisting of ambulatory clinics and hospital sitesin [place], [place], [place] and [place]. This disclosure is being madepursuant to the Care Everywhere program and may not contain all information available regarding this patient. Last updated 18.[facility] Allergies * Celecoxib(Skin Reactions) * Dyline-Gg(Other) * Naproxen(GI Discomfort) * Penicillins(Anaphylaxis) -High Criticality * Sulfa Drugs(Anaphylaxis) -High Criticality * Vancomycin(Unknown) * Cephalexin(Anaphylaxis) -High Criticality,Inactive Medications * Be aware that medications may not be up to date on this document. Alwaysverify current medications with the patient. * omeprazole (PRILOSEC) 20 MG capsule(Started 11/08/2020) Take 20 mg by mouth daily before breakfast Reasons: Gastroesophageal Reflux Disease * spironolactone (ALDACTONE) 25 MG tablet(Started 11/08/2020) Take 25 mg by mouth once daily Reasons: Edema * metoprolol succinate XL 24hr (TOPROL XL) 25 MG tablet(Started 11/08/2020) Take 25 mg by mouth once daily * apixaban (ELIQUIS) 5 MG tablet Take 5 mg by mouth once daily * olmesartan (BENICAR) 20 MG tablet Take 20 mg by mouth once daily * albuterol HFA (PROVENTIL;VENTOLIN;PROAIR) 108 (90 Base) MCG/ACT inhaler Inhale 2 puffs by mouth every 6 hours as needed * budesonide-formoterol (SYMBICORT) 160-4.5 MCG/ACT inhaler Inhale 2 puffs by mouth 2 times daily * HYDROcodone-acetaminophen (NORCO) 7.5-325 MG tablet(Started 11/16/2020) Take 1 (one) tablet by mouth every 6 hours as needed for Pain * polyethylene glycol 3350 (MIRALAX) 17 GM/SCOOP powder(Started 11/16/2020) Take 17 (seventeen) g by mouth once daily * docusate sodium (COLACE) 100 MG capsule(Started 11/16/2020) Take 1 (one) capsule by mouth 2 times daily 2 refills by 11/16/2021 Active Problems Problem Noted Date Diagnosed Date [...] Mass Index 49.92 12/01/2020 1:19 PM CDT Procedures * CARDIAC EKG ORDER(Performed 11/20/2020) * PHOSPHORUS BLOOD(Performed 11/16/2020) * MAGNESIUM BLOOD(Performed 11/16/2020) * CBC W AUTO DIFFERENTIAL(Performed 11/16/2020) * HEPATIC FUNCTION PANEL(Performed 11/16/2020) * BASIC METABOLIC PANEL (CALCIUM TOTAL)(Performed 11/16/2020) * OT EVAL AND TREAT(Performed 11/15/2020) * PATHOLOGY TISSUE(Performed 11/15/2020) Performed for Acute pancreatitis, unspecified complication status, unspecified pancreatitis type (HCC) * SD LAP,CHOLECYSTECTOMY(Performed 11/15/2020) Performed for Acute pancreatitis, unspecified complication status, unspecified pancreatitis type (HCC) * ENDOTRACHEAL TUBE NOTE(Performed 11/15/2020) * EKG 12-LEAD(Performed 11/15/2020) Performed for Pre-operative clearance * ECHO COMPLETE(Performed 11/15/2020) Performed for Cholecystitis * PHOSPHORUS BLOOD(Performed 11/15/2020) * MAGNESIUM BLOOD(Performed 11/15/2020) * CBC W AUTO DIFFERENTIAL(Performed 11/15/2020) * HEPATIC FUNCTION PANEL(Performed 11/15/2020) * BASIC METABOLIC PANEL (CALCIUM TOTAL)(Performed 11/15/2020) * EKG 12-LEAD(Performed 11/14/2020) Performed for Cholecystitis * PHOSPHORUS BLOOD(Performed 11/14/2020) * MAGNESIUM BLOOD(Performed 11/14/2020) * CBC W AUTO DIFFERENTIAL(Performed 11/14/2020) * HEPATIC FUNCTION PANEL(Performed 11/14/2020) * BASIC METABOLIC PANEL (CALCIUM TOTAL)(Performed 11/14/2020) * HOME CPAP/BIPAP FOR HOSP USE: NOCTURNAL 02(Performed 11/14/2020) * US ABDOMEN LIMITED(Performed 11/13/2020) Performed for Cholecystitis * TYPE + SCREEN PANEL(Performed 11/13/2020) * PHOSPHORUS BLOOD(Performed 11/13/2020) * MAGNESIUM BLOOD(Performed 11/13/2020) * CBC W AUTO DIFFERENTIAL(Performed 11/13/2020) * HEPATIC FUNCTION PANEL(Performed 11/13/2020) * BASIC METABOLIC PANEL (CALCIUM TOTAL)(Performed 11/13/2020) * HOME CPAP/BIPAP FOR HOSP USE: NOCTURNAL 02(Performed 11/13/2020) * SARS-COV-2 (COVID-19) IN HOUSE(Performed 11/12/2020) * MRI ABDOMEN W MRCP WWO CONT W3D(Performed 11/12/2020) Performed for Cholecystitis * BASIC METABOLIC PANEL (CALCIUM TOTAL)(Performed 11/12/2020) * DIFFERENTIAL MANUAL(Performed 11/12/2020) * LIPASE BLOOD(Performed 11/12/2020) * HEPATIC FUNCTION PANEL(Performed 11/12/2020) * PHOSPHORUS BLOOD(Performed 11/12/2020) * MAGNESIUM BLOOD(Performed 11/12/2020) * BASIC METABOLIC PANEL (CALCIUM TOTAL)(Performed 11/12/2020) * CBC W AUTO DIFFERENTIAL(Performed 11/12/2020) * HOME CPAP/BIPAP FOR HOSP USE: NOCTURNAL 02(Performed 11/12/2020) * HOME CPAP/BIPAP FOR HOSP USE: NOCTURNAL 02(Performed 11/11/2020) Results * CARDIAC EKG ORDER (11/20/2020 3:00 PM CDT) Narrative 11/20/2020 3:00 PM CDT Ordered by an unspecified provider. Scanned Document CARDIAC SERVICES ORD ERABLES * (ABNORMAL) CBC W AUTO DIFFERENTIAL (11/16/2020 6:27 AM CDT) Only the most recent of5 resultswithin the time period is included. WBC 10.6(H) 3.5 - 10.5 10? 3 /uL 11/16/2020 7:53 AM [facility] Comment:Confirmed by repeat analysis. RBC 3.80(L) 3.90 - 5.00 10? 6 /uL 11/16/2020 7:53 AM [facility] Hemoglobin 11.3(L) 12.0 - 15.5 g/dL 11/16/2020 7:53 AM [facility] Hematocrit 33.8(L) 35.0 - 45.0 % 11/16/2020 7:53 AM [facility] MCV 88.9 81.0 - 97.0 fL 11/16/2020 7:53 AM [facility] MCH 29.7 28.0 - 34.0 pg 11/16/2020 7:53 AM [facility] MCHC 33.4 32.0 - 36.0 g/dL 11/16/2020 7:53 AM [facility] Platelet Count 289 150 - 400 10? 3 /uL 11/16/2020 7:53 AM [facility] RDW-SD 47.6 36.0 - 50.0 fL 11/16/2020 7:53 AM [facility] RDW-CV 14.6 11.2 - 14.8 % 11/16/2020 7:53 AM [facility] MPV 10.7 9.3 - 12.8 fL 11/16/2020 7:53 AM [facility] nRBC Absolute 0.00 0 10? 3 /uL 11/16/2020 7:53 AM [facility] nRBC Auto 0.0 0 /100 WBC 11/16/2020 7:53 AM [facility] Neutrophils % 77.0(H) 35.0 - 70.0 % 11/16/2020 7:53 AM [facility] Lymphocytes % 12.3(L) 19.7 - 55.1 % 11/16/2020 7:53 AM [facility] Monocytes % 9.7 3.0 - 15.0 % 11/16/2020 7:53 AM [facility] Eosinophils % 0.0 0.0 - 6.0 % 11/16/2020 7:53 AM [facility] Basophil % 0.1 0.0 - 1.5 % 11/16/2020 7:53 AM [facility] Neutrophils Absolute 8.1(H) 1.6 - 7.0 10? 3 /uL 11/16/2020 7:53 AM [facility] Lymphocyte Absolute 1.3 0.8 - 2.9 10? 3 /uL 11/16/2020 7:53 AM [facility] Monocytes Absolute 1.03(H) 0.14 - 0.66 10? 3 /uL 11/16/2020 7:53 AM [facility] Eosinophils Absolute 0.00 0.00 - 0.45 10? 3 /uL 11/16/2020 7:53 AM [facility] Basophils Absolute 0.01 0.00 - 0.06 10? 3 /uL 11/16/2020 7:53 AM [facility] Immature Granulocytes % 0.9 0.0 - 1.0 % 11/16/2020 7:53 AM [facility] Blood BLOOD SPECIMEN / Unknown Lab Venipuncture / Unknown 11/16/2020 6:27 AM CDT 11/16/2020 6:48 AM CDT Alessandro Tovar MD LAB - HEMATOLOGY O RDERABLES [facility] [address] [place] [address], [facility] [phone] * (ABNORMAL) BASIC METABOLIC PANEL (CALCIUM TOTAL) (11/16/2020 6:27 AM CDT) Only the most recent of6 resultswithin the time period is included. BUN 7 7 - 26 mg/dL 11/16/2020 7:16 AM [facility] Creatinine 0.7 0.6 - 1.2 mg/dL 11/16/2020 7:16 AM [facility] Sodium 132(L) 136 - 145 mmol/L 11/16/2020 7:16 AM [facility] Potassium 3.8 3.5 - 4.5 mmol/L 11/16/2020 7:16 AM [facility] Chloride 102 98 - 107 mmol/L 11/16/2020 7:16 AM [facility] CO2 22 22 - 29 mmol/L 11/16/2020 7:16 AM [facility] Glucose 125(H) 70 - 115 mg/dL 11/16/2020 7:16 AM [facility] Calcium 8.5 8.4 - 10.2 mg/dL 11/16/2020 7:16 AM [facility] Anion Gap 12 8 - 18 11/16/2020 7:16 AM [facility] BUN/Creatinine Ratio 10 7 - 23 11/16/2020 7:16 AM [facility] Osmolality Calculated 273 270 - 300 mOsm/kg 11/16/2020 7:16 AM [facility] eGFR >60 >60 mL/min/1.7 3 m2 11/16/2020 7:16 AM CDT [facility] Blood BLOOD SPECIMEN / Unknown Lab Venipuncture / Unknown 11/16/2020 6:27 AM CDT 11/16/2020 6:47 AM CDT Alessandro Tovar MD LAB - CHEMISTRY OR DERABLES [address] [address], [facility] [phone] * PHOSPHORUS BLOOD (11/16/2020 6:27 AM CDT) Only the most recent of5 resultswithin the time period is included. Pathologist [facility] Phosphorus 3.2 2.3 - 4.7 mg/dL 11/16/2020 7:17 AM T [facility] Blood BLOOD SPECIMEN / Unknown Lab Venipuncture / Unknown 11/16/2020 6:27 AM CDT 11/16/2020 6:47 AM CDT Alessandro Tovar MD LAB - CHEMISTRY OR DERABLES [address] [address], [facility] [phone] * (ABNORMAL) HEPATIC FUNCTION PANEL (11/16/2020 6:27 AM CDT) Only the most recent of5 resultswithin the time period is included. Protein Total 6.0 6.0 - 8.3 g/dL 021 7:17 AM T [facility] Albumin 2.9(L) 3.4 - 5.0 g/dL 11/16/2020 7:17 AM [facility] Bilirubin Total 1.0 0.2 - 1.2 mg/dL 10/22 7:17 AM [facility] Bilirubin Conjugated 0.7(H) 0.1 - 0.5 mg/dL 11/16/2020 7:17 AM [facility] Bilirubin Unconjugated 0.3 Unconjugated Bilirubin is a calculated value: Reference ranges have not been established. mg/dL 11/16/2020 7:17 AM CDT [facility] Alkaline Phosphatase 127 40 - 150 Units/L 11/16/2020 7:17 AM CDT [facility] ALT 50 0 - 55 Units/L 11/16/2020 7:17 AM CDT [facility] AST 49(H) 5 - 34 Units/L 11/16/2020 7:17 AM [facility] Albumin/Globulin Ratio 0.9(L) 1.1 - 2.3 11/16/2020 7:17 AM CDT [facility] Blood BLOOD SPECIMEN / Unknown Lab Venipuncture / Unknown 11/16/2020 6:27 AM CDT 11/16/2020 6:47 AM CDT Alessandro Tovar MD LAB - CHEMISTRY OR DERABLES Performing Organization Address City/[facility]/ZIP Co de Phone Number [address] [address], [employer] [phone] * MAGNESIUM BLOOD (11/16/2020 6:27 AM CDT) Only the most recent of5 resultswithin the time period is included. Magnesium 1.7 1.6 - 2.6 mg/dL 11/16/2020 7:17 AM CDT [facility] Blood BLOOD SPECIMEN / Unknown Lab Venipuncture / Unknown 11/16/2020 6:27 AM CDT 11/16/2020 6:47 AM CDT Alessandro Tovar MD LAB - CHEMISTRY OR DERABLES Performing Organization Address [facility]/ZIP Co de Phone Number [address] [address], [employer] [phone] * PATHOLOGY TISSUE (11/15/2020 2:39 PM CDT) Case Report Surgical Pathology Report ? Case: [id number] ? Authorizing Provider: ??Rudy Houston MD ?Collected: ? 11/15/2020 02:39 PM ? Ordering Location: ? [facility] AC[facility] ? Received: ?11/16/2020 05:13 AM ? Pathologist: ? Melva Ny MD ? Specimen: ?Gallbladder ? 11/18/2020 11:00 AM [facility] Final Diagnosis Gallbladder, cholecystectomy (A): - Chronic cholecystitis - Cholelithiasis 11/18/2020 11:00 AM [facility] Microscopic Description and Comment Microscopic examination substantiates the final diagnosis. 11/18/2020 11:00 AM [facility] Clinical History The patient is a 70 year-old woman with gallstone pancreatitis. 11/18/2020 11:00 AM [facility] Gross Description The requisition and specimens are identified with patient's name, Madeline Richards. Received in formalin, specimen A consists of a disrupted gallbladder measuring 6.2 x 2.0 x 1.2 cm. The serosa is lagos to purple and roughened. The cystic duct margin is stapled closed. The mucosa is lagos-fritz with no lesions or masses. The lumen consists of multiple benson yellow stones measuring 0.3-1.0 cm in greatest dimension and 5.0 x 1.5 x 0.5 cm in aggregate. The gallbladder wall thickness ranges from 0.3-0.5 cm. [employer] sections are submitted in cassette A1. AR 11/18/2020 11:00 AM CDT [facility] Disclaimer The performance characteristics of all immunohistochemical and indirect immunofluorescence stains (if any) cited in this report were determined by the Histopathology Laboratory of [facility]. Some of these tests were developed by our own laboratory and have not been cleared or approved by the US Food and Drug Administration. The FDA does not require this test to go through premarket FDA review. These tests are used for clinical purposes. They should not be regarded as investigational or for research. This laboratory is certified under the Clinical Laboratory Improvement Amendments (CLIA) as qualified to perform high complexity clinical laboratory testing. This case has been personally reviewed and interpreted by the attending (teaching) pathologist. 11/18/2020 11:00 AM CDT [facility] Embedded Images 11/18/2020 11:00 AM CDT [facility] Removal ENTIRE GALLBLADDER / Unknown 11/15/2020 2:39 PM CDT 11/16/2020 5:13 AM CDT Comment:Pre-op diagnosis: Acute pancreatitis, unspecified complication status, unspecified pancreatitis type [K85.90] Rudy Houston MD LAB - PATHOLOGY/CYTO LOGY ORDERABLES Performing Organization Address City/State/[facility] Co id Phone Number [facility] [address] [phone] * ETT LINE PERFORMABLE (11/15/2020 12:58 PM CDT) Narrative Effie Díaz APRN-CRNA - 11/15/2020 12:58 PM CDT Effie Díaz APRN-CRNA ? 11/15/2020 12:58 PM Endotracheal Tube Placement: ? Patient Location: OR. Intubation Event Date/Time: ??11/15/2020 12:43 PM Procedure: intubation (80913). Procedure Section: ?? Sedation: under general anesthesia. Indications for Airway Management: ??anesthesia Procedure pretreatments used? ??No Induction: standard IV Patient Position: ??supine Mask Ventilation: easy. Blade Type: Reyes Blade Size: 2 Laryngoscopy View: grade 1 (full cords) Intubation Adjuncts: stylet Tube: endotracheal tube Placement: oral Tube type: cuff - inflated Tube Size (MM): 7 Depth of Insertion (CM): 21 Measured From: lips Cuff volume (mL): ??5 Cuff Inflated With: air Number of Attempts: 1. Placement Verified By: direct visualization, bilateral breath sounds, chest auscultation and CO2 monitor Tube secured with: ??adhesive tape. Dentition unchanged? ??Yes Difficult Airway? ??No. Procedure Start Time: 11/15/2020 12:43 PM. Staff Section ?? Anesthesia Provider: Effie Díaz APRN-CRNA, Performed the procedure Effie HERNADEZ GENERAL ANES THESIA ORDERABLES * EKG 12-LEAD (11/15/2020 10:49 AM CDT) Only the most recent of2 resultswithin the time period is included. Ventricular Rate 99 BPM [facility] MUSE QRS Duration ms 80 ms [facility] MUSE Q-T Interval ms 316 ms [facility] MUSE QTC Calculation (Bezet) 405 ms [facility] MUSE Calculated R Tillar -6 degrees [facility] MUSE Calculated T Tillar 0 degrees [facility] MUSE Interpretation EKG ATRIAL FIBRILLATION LOW VOLTAGE QRS CANNOT RULE OUT ANTERIOR INFARCT , AGE UNDETERMINED ABNORMAL ECG NO PREVIOUS ECGS AVAILABLE Confirmed by MD Jonatan., Elicia ([id number]) on 11/15/2020 12:53:12 PM [facility] MUSE 11/15/2020 10:4 9 AM CDT 11/15/2020 12:53 PM CDT Joe Crouch MD ECG ORDERABLES [facility] M[facility] * ECHO COMPLETE (11/15/2020 9:52 AM CDT) Anatomical Region Laterality Modality Chest Echo 11/15/2020 8:56 AM CDT Narrative Procedure Note Allyn Lopez MD - 11/15/2020 Alessandro Tovar MD ECHOCARDIOGRAPHY R ADIANT * US ABDOMEN LIMITED (11/13/2020 9:19 AM CDT) Anatomical Region Laterality Modality Abdomen Ultrasound 11/15/2020 7:52 AM CDT Impressions 11/15/2020 7:55 AM CDT IMPRESSION: Extensive cholelithiasis. This report was electronically signed by ZACKARY AGGARWAL ??on 11/15/2020 7:55 AM . Narrative 11/15/2020 7:55 AM CDT EXAMINATION: US ABDOMEN LIMITED HISTORY: K81.9: Cholecystitis COMPARISON: MRI from 11/12/2020 FINDINGS: The gallbladder is filled with stones, obscuring the gallbladder lumen. The superficial wall of the gallbladder is normal at 3 mm. The deep wall is obscured. No surrounding fluid is observed. The sonographic Palomino's sign is negative. No discrete liver lesions are observed. The portal and hepatic veins are patent. There is no biliary dilatation. The common bile duct is normal at 5 mm. The visualized pancreas is normal. The right kidney shows no hydronephrosis. There is no free fluid. Procedure Note Zackary Aggarwal MD - 11/15/2020 EXAMINATION: US ABDOMEN LIMITED HISTORY: K81.9: Cholecystitis COMPARISON: MRI from 11/12/2020 FINDINGS: The gallbladder is filled with stones, obscuring the gallbladder lumen. The superficial wall of the gallbladder is normal at 3 mm. The deep wall is obscured. No surrounding fluid is observed. The sonographic Palomino's sign is negative. No discrete liver lesions are observed. The portal and hepatic veins are patent. There is no biliary dilatation. The commonbile duct is normal at 5 mm. The visualized pancreas is normal. The right kidney shows no hydronephrosis. There is no free fluid. IMPRESSION: Extensive cholelithiasis. This report was electronically signed by ZACKARY AGGARWAL on 11/15/2020 7:55 AM . Alessandro Tovar MD US ORDERABLES * TYPE + SCREEN PANEL (11/13/2020 3:18 AM CDT) Antibody Screen NEG 4:57 AM CDT [facility] ABO Rh B POS 11/13/2020 4:57 AM CDT [facility] Blood Bank BLOOD SPECIMEN / Unknown Lab Venipuncture / Unknown 11/13/2020 3:18 AM CDT 11/13/2020 4:15 AM CDT Alessandro Tovar MD LAB - BLOOD BANK O RDERABLES [facility] [address] [place] [address], [facility] [phone] * SARS-COV-2 (COVID-19) IN HOUSE (11/12/2020 7:02 PM CDT) Pathologist [facility] COVID-19 PCR Not detected Not detected 11/13/2020 4:14 AM CDT [facility] Microbiology SPECIMEN FROM NASOPHARYNGEAL STRUCTURE / Unknown Collection / Unknown 11/12/2020 7:02 PM CDT 11/12/2020 7:12 PM CDT Narrative [facility] - 11/13/2020 4:14 AM CDT This nucleic acid amplification assay performance was validated by [facility]. This test has been authorized by the Food and Drug administration (FDA)under an Emergency??Use Authorization (EUA). This test has been validated in accordance with the FDA's guidance document Policy for Diagnostic Testing in Laboratories Certified to perform High Complexity Testing under CLIA prior to Emergency Use Authorization for Coronavirus Disease-2019 during the Public Health Emergency issued on September 20, 2019. FDA independent review of this validation is pending. This test is only authorized for the duration of time the declaration that circumstances exist justifying the authorization of emergency use of in vitro diagnostic tests for detection of SARS-CoV-2 virus and/or diagnosis of COVID-19 infection under section 564(b)(1) of the Act, 21 U.S.C 360bbb-3 (b)(1), unless the authorization is terminated or revoked sooner. Fact Sheets for this EUA assay are available upon request. Alessandro Tovar MD LAB - MICROBIOLOGY ORDERABLES [facility] [address] [place], [place] [address], [facility] [phone] * MRI ABDOMEN W MRCP WWO CONT W3D (11/12/2020 11:57 AM CDT) Anatomical Region Laterality Modality Abdomen Magnetic Resonan ce 11/12/2020 11:5 5 AM CDT Addenda Addendum by Alejandra Baig MD on 11/12/2020 5:36 PM CDT ORIGINAL REPORT EXAMINATION: 1. Magnetic resonance imaging (MRI) of the abdomen without and with contrast 2. Magnetic resonance cholangiopancreatography (MRCP) with 3-D reconstruction and analysis HISTORY: Transfer from outside hospital for presumed gallstone pancreatitis with transaminitis. TECHNIQUE: MRI of the abdomen was performed prior to and following the uneventful administration of 20 mL of Multihance intravenous gadolinium contrast according to standard protocol, including dynamic imaging for MRCP. Image data was analyzed on a dedicated 3-D workstation for the MRCP portion of the exam. COMPARISON: No prior FINDINGS: MRI: Bibasilar atelectasis is identified. There is no evidence of hepatic steatosis. No enhancing hepatic lesion is noted to suggest malignancy. A few scattered hepatic cysts are noted. The portal vein and its major branches are patent. The hepatic veins are patent. The gallbladder is absent The pancreas is atrophic. There is no peripancreatic fluid collection. No pancreatic mass is identified. The spleen, adrenal glands, and kidneys are normal. No free intraperitoneal fluid is identified. Compression deformities of T11 and L2 are seen. Multilevel degenerative changes are noted in the spine. MRCP: The intrahepatic and extrahepatic bile ducts are nondilated. No filling defect or stricture is seen in the biliary system. The pancreatic duct is nondilated. IMPRESSION: Post cholecystectomy without evidence of intra or extrahepatic bile duct dilatation. No MRI evidence of pancreatitis. Dictated by Cristal Villaseñor MD (cmo & president). Dr. TIA Marshall M.D. have personally reviewed and interpreted this examination/study. This report was electronically signed by TIA LOPES M.D. ??on 11/12/2020 4:15 PM . ADDENDUM #1 Addendum: On further review, a contracted gallbladder is visualized (image 17, series 11. The gallbladder shows mild wall enhancement and minimal questionable wall thickening. Filling defects are suggested within the gallbladder. This may represent changes of chronic cholecystitis with multiple gallstones. Further evaluation may be obtained with gallbladder ultrasound. There is no pericholecystic fluid. This report was electronically signed by Suzanne BAIG M.D. ??on 11/12/2020 5:33 PM . Impressions 11/12/2020 4:15 PM CDT IMPRESSION: Post cholecystectomy without evidence of intra or extrahepatic bile duct dilatation. No MRI evidence of pancreatitis. Dictated by Cristal Villaseñor MD (cmo & president). I, Dr. TIA LOPES M.D. have personally reviewed and interpreted this examination/study. This report was electronically signed by TIA LOPES M.D. ??on 11/12/2020 4:15 PM . Narrative 11/12/2020 4:15 PM CDT EXAMINATION: 1. Magnetic resonance imaging (MRI) of the abdomen without and with contrast 2. Magnetic resonance cholangiopancreatography (MRCP) with 3-D reconstruction and analysis HISTORY: Transfer from outside hospital for presumed gallstone pancreatitis with transaminitis. TECHNIQUE: MRI of the abdomen was performed prior to and following the uneventful administration of 20 mL of Multihance intravenous gadolinium contrast according to standard protocol, including dynamic imaging for MRCP. Image data was analyzed on a dedicated 3-D workstation for the MRCP portion of the exam. COMPARISON: No prior FINDINGS: MRI: Bibasilar atelectasis is identified. There is no evidence of hepatic steatosis. No enhancing hepatic lesion is noted to suggest malignancy. A few scattered hepatic cysts are noted. The portal vein and its major branches are patent. The hepatic veins are patent. The gallbladder is absent The pancreas is atrophic. There is no peripancreatic fluid collection. No pancreatic mass is identified. The spleen, adrenal glands, and kidneys are normal. No free intraperitoneal fluid is identified. Compression deformities of T11 and L2 are seen. Multilevel degenerative changes are noted in the spine. MRCP: The intrahepatic and extrahepatic bile ducts are nondilated. No filling defect or stricture is seen in the biliary system. The pancreatic duct is nondilated. Procedure Note Tia Lopes MD / Alejandra Baig MD - 11/12/2020 EXAMINATION: 1. Magnetic resonance imaging (MRI) of the abdomen without and with contrast 2. Magnetic resonance cholangiopancreatography (MRCP) with 3-D reconstruction and analysis HISTORY: Transfer from outside hospital for presumed gallstone pancreatitis with transaminitis. TECHNIQUE: MRI of the abdomen was performed prior to and following the uneventful administration of 20 mL of Multihance intravenous gadolinium contrast according to standard protocol, including dynamic imaging for MRCP. Image data was analyzed on a dedicated 3-D workstation for theMRCP portion of the exam. COMPARISON: No prior FINDINGS: MRI: Bibasilar atelectasis is identified. There is no evidence of hepatic steatosis. No enhancing hepatic lesionis noted to suggest malignancy. A few scattered hepatic cysts are noted. The portal vein and its major branches are patent. The hepatic veins are patent. The gallbladder is absent The pancreas is atrophic. There is no peripancreatic fluid collection. No pancreatic mass is identified. The spleen, adrenal glands, and kidneys are normal. No free intraperitoneal fluid is identified. Compression deformities of T11 andL2 are seen. Multilevel degenerative changes are noted in the spine. MRCP: The intrahepatic and extrahepatic bile ducts are nondilated. No filling defect or stricture is seen in the biliary system. The pancreatic duct is nondilated. IMPRESSION: Post cholecystectomy without evidence of intra or extrahepatic bile duct dilatation. No MRI evidence of pancreatitis. Dictated by Cristal Villaseñor MD (cmo & president). Dr. TIA Marshall M.D. have personally reviewed and interpreted this examination/study. This report was electronically signed by TIA LOPES M.D. on11/12/2020 4:15 PM . Alessandro Tovar MD MR ORDERABLES * (ABNORMAL) DIFFERENTIAL MANUAL (11/12/2020 12:48 AM CDT) WBC (corrected for NRBC) 8.5 10? 3 /uL 11/12/2020 2:07 AM [facility] Total Cell Count 100 11/12/2020 2:07 AM [facility] Neutrophils Absolute Manual 5.27 1.60 - 7.00 10? 3 /uL 11/12/2020 2:07 AM [facility] Comment:(BANDS+SEGS) x WBC = NEUT # (ANC) Lymphocyte Absolute Manual 1.79 0.80 - 2.90 10? 3 /uL 11/12/2020 2:07 AM [facility] Monocytes Absolute Manual 1.19(H) 0.14 - 0.66 10? 3 /uL 11/12/2020 2:07 AM [facility] Eosinophils Absolute Manual 0.26(H) 0.00 - 0.22 10? 3 /uL 11/12/2020 2:07 AM [facility] Band % Manual 4 0 - 10 % 11/12/2020 2:07 AM [facility] Neutrophil % Manual 58 30 - 60 % 11/12/2020 2:07 AM [facility] Lymphocyte % Manual 21 20 - 45 % 11/12/2020 2:07 AM [facility] Monocytes % Manual 14(H) 2 - 10 % 11/12/2020 2:07 AM [facility] Eosinophils % Manual 3 1 - 6 % 11/12/2020 2:07 AM [facility] Platelet Estimate Adequate Adequate 11/12/2020 2:07 AM [facility] RBC Morphology Normal 11/12/2020 2:07 AM [facility] Blood BLOOD SPECIMEN / Unknown Venipuncture / Unknown 11/12/2020 12:48 AM CDT 11/12/2020 12:52 AM CDT Alessandro Tovar MD LAB - HEMATOLOGY O RDERABLES [facility] [address] [place] [address], [facility] [phone] * LIPASE BLOOD (11/12/2020 12:48 AM CDT) Lipase 67 8 - 78 Units/L 11/12/2020 1:18 AM CDT [facility] Blood BLOOD SPECIMEN / Unknown Venipuncture / Unknown 11/12/2020 12:48 AM CDT 11/12/2020 12:52 AM CDT Alessandro Tovar MD LAB - CHEMISTRY OR DERABLES [address] [address], [facility] [phone]
[2024-08-19 13:35] LABS: Basophils Percent Auto 0.6 % (0.2-1.2); Eosinophils Absolute Auto 0.1 K/mm3 (0-0.3); Eosinophils Percent Auto 1.5 % (0-4.4); Hematocrit 39.9 % (37.0-47.0); Hemoglobin 13.4 g/dL (12.0-15.0); Immature Granulocyte Absolute 0.03 K/mm3 (0.00-0.031); Immature Granulocyte Percent A 0.4 % (0-0.5); Lymphocytes Absolute Auto 2.02 K/mm3 (0.9-3.2); Lymphocytes Percent Auto 29.8 % (18.3-44.2); Mean Corpuscular HGB Conc 33.6 g/dl (32-36); Mean Corpuscular Hemoglobin 30.5 pg (26-34); Mean Corpuscular Volume 90.7 fl (80-100); Mean Platelet Volume 9.6 fl (7.4-10.4); Monocytes Absolute Auto 0.8 K/mm3 (0.1-0.6); Monocytes Percent Auto 12.3 % (2.6-8.5); Neutrophils Absolute Auto 3.8 K/mm3 (1.3-6.7); Neutrophils Percent Auto 55.4 % (45.5-73.1); Platelet Count Result 276 k/mm3 (150-375); Red Cell Distribution Width 12.9 % (11.5-14.5); White Blood Count 6.8 K/mm3 (4.5-10.0)
[2024-08-19 14:38] LABS: Alanine Aminotransferase 19 U/L (6-35); Albumin Level 4.2 g/dL (3.5-5.1); Alkaline Phosphatase 107 U/L (38-126); Anion Gap 10 mmol/L (4-12); Aspartate Amino Transferase 42 U/L (14-36); Bilirubin,Total 0.9 mg/dL (0.2-1.3); Blood Urea Nitrogen 10 mg/dL (7-17); Calcium 9.2 mg/dL (8.4-10.2); Carbon Dioxide 25 mmol/L (22-30); Chloride 90 mmol/L (98-107); Cholesterol 157 mg/dL (0-200); Estimated Glomerular Filt Rate > 60; Glucose 95 mg/dL (65-110); HDL Direct 65 mg/dL; Potassium 5.1 mmol/L (3.4-5.0); Sodium 125 mmol/L (137-145); Triglycerides 40 mg/dL (<150)
[2024-08-19 14:50] LABS: LDL Cholesterol Direct 74 mg/dL
[2024-08-19 15:22] LABS: Creatinine Urine 15.4 mg/dL
[2024-08-19 15:36] LABS: MALB Creatinine Ratio < 39.0 mg/g (0-30); Microalbumin Urine Random < 6.0 mg/L (0-16.7)
[2024-08-19 18:37] LABS: Hemoglobin A1C 5.6 % (<5.7)
== END 2024-08-19 11:01 | disposition home or self-care (01) ==
PROVIDERS: PCP Family Medicine; Visit Provider Family Medicine
DX: R73.03 Prediabetes (principal); I10 Essential (primary) hypertension; I48.20 Chronic atrial fibrillation, unspecified
CPT/HCPCS: 36415; 80053; 80061; 82043; 83036; 85025

== ENCOUNTER 2024-08-27 10:45 | Outpatient (CLI) | payer MEDICARE, SELFPAY ==
--- OUTSIDE RECORDS SUMMARY | 2024-08-27 12:19 | XMS_ITS | Continuity of Care Document ---
Author Organization [facility] Address [address] [place] [address] [address] [place] [address] Phone Care Team Providers Care Track Moving Machine Operator Name Role Phone Almas, Eddavid Unavailable Unavailable Advance Directives Directive Yes / No Effective Date File Name No Information Encounters Encounter Description Practice Location Reason(s) For Visit Diagnoses Date Provider Providers Copied on Encounter [facility], [address], [place], [place], [id number], [place] tel:[phone] [facility] No Information Sep- 7-200 0 Doisy Edward. [address] , [address], [place], [address], [place]. tel:[phone] Family History Family Member Type Diagnosis Age At Onset No Information Payers Payer name Insurance type Covered green party ID Authoriza tion(s) No Information Social History [...]
--- OUTSIDE RECORDS SUMMARY | 2024-08-27 12:19 | XMS_ITS | Patient Health Summary ---
Author Organization [facility] Address [address] [place] [address] Care Team Providers Care Dehydrating Press Operator Name Role Phone Unavailable Primary Care Provider Unavailabl e Note from [facility],non-owned Affiliates and Associated Physician Practices is amultiple site organization consisting of ambulatory clinics and hospital sitesin [place], [place], [place] and [place]. This disclosure is being madepursuant to the Care Everywhere program and may not contain all information available regarding this patient. Last updated 18.[facility] Allergies * Celecoxib(Skin Reactions) * Dyline-Gg(Other) * [...] complication status, unspecified pancreatitis type (HCC) * MI LAP,CHOLECYSTECTOMY(Performed 11/15/2020) Performed for Acute pancreatitis, unspecified [...] 10.5 10? 3 /uL 11/16/2020 7:53 AM [facility] Comment:Confirmed by repeat analysis. RBC 3.80(L) 3.90 - 5.00 10? 6 /uL 11/16/2020 7:53 AM [facility] Hemoglobin 11.3(L) 12.0 - 15.5 g/dL 11/16/2020 7:53 AM [facility] Hematocrit 33.8(L) 35.0 - 45.0 % 11/16/2020 7:53 AM [facility] MCV 88.9 81.0 - 97.0 fL 11/16/2020 7:53 AM [facility] MCH 29.7 28.0 - 34.0 pg 11/16/2020 7:53 AM [facility] MCHC 33.4 32.0 - 36.0 g/dL 11/16/2020 7:53 AM [facility] Platelet Count 289 150 - 400 10? 3 /uL 11/16/2020 7:53 AM [facility] RDW-SD 47.6 36.0 - 50.0 fL 11/16/2020 7:53 AM [facility] RDW-CV 14.6 11.2 - 14.8 % 11/16/2020 7:53 AM [facility] MPV 10.7 9.3 - 12.8 fL 11/16/2020 7:53 AM [facility] nRBC Absolute 0.00 0 10? 3 /uL 11/16/2020 7:53 AM [facility] nRBC Auto 0.0 0 /100 WBC 11/16/2020 7:53 AM [facility] Neutrophils % 77.0(H) 35.0 - 70.0 % 11/16/2020 7:53 AM [facility] Lymphocytes % 12.3(L) 19.7 - 55.1 % 11/16/2020 7:53 AM [facility] Monocytes % 9.7 3.0 - 15.0 % 11/16/2020 7:53 AM [facility] Eosinophils % 0.0 0.0 - 6.0 % 11/16/2020 7:53 AM [facility] Basophil % 0.1 0.0 - 1.5 % 11/16/2020 7:53 AM [facility] Neutrophils Absolute 8.1(H) 1.6 - 7.0 10? 3 /uL 11/16/2020 7:53 AM [facility] Lymphocyte Absolute 1.3 0.8 - 2.9 10? 3 /uL 11/16/2020 7:53 AM [facility] Monocytes Absolute 1.03(H) 0.14 - 0.66 10? 3 /uL 11/16/2020 7:53 AM [facility] Eosinophils Absolute 0.00 0.00 - 0.45 10? 3 /uL 11/16/2020 7:53 AM [facility] Basophils Absolute 0.01 0.00 - 0.06 10? 3 /uL 11/16/2020 7:53 AM [facility] Immature Granulocytes % 0.9 0.0 - 1.0 % 11/16/2020 7:53 AM [facility] Blood BLOOD SPECIMEN / Unknown Lab Venipuncture / Unknown 11/16/2020 6:27 AM CDT 11/16/2020 6:48 AM CDT Alessandro Tovar MD LAB - HEMATOLOGY O RDERABLES [facility] [address] [place] [address], [facility] [phone] * (ABNORMAL) BASIC METABOLIC PANEL (CALCIUM TOTAL) (11/16/2020 6:27 AM CDT) Only the most recent of6 resultswithin the time period is included. BUN 7 7 - 26 mg/dL 11/16/2020 7:16 AM [facility] Creatinine 0.7 0.6 - 1.2 mg/dL 11/16/2020 7:16 AM [facility] Sodium 132(L) 136 - 145 mmol/L 11/16/2020 7:16 AM [facility] Potassium 3.8 3.5 - 4.5 mmol/L 11/16/2020 7:16 AM [facility] Chloride 102 98 - 107 mmol/L 11/16/2020 7:16 AM [facility] CO2 22 22 - 29 mmol/L 11/16/2020 7:16 AM [facility] Glucose 125(H) 70 - 115 mg/dL 11/16/2020 7:16 AM [facility] Calcium 8.5 8.4 - 10.2 mg/dL 11/16/2020 7:16 AM [facility] Anion Gap 12 8 - 18 11/16/2020 7:16 AM [facility] BUN/Creatinine Ratio 10 7 - 23 11/16/2020 7:16 AM [facility] Osmolality Calculated 273 270 - 300 mOsm/kg 11/16/2020 7:16 AM [facility] eGFR >60 >60 mL/min/1.7 3 m2 11/16/2020 7:16 AM CDT [facility] Blood BLOOD SPECIMEN / Unknown Lab Venipuncture / Unknown 11/16/2020 6:27 AM CDT 11/16/2020 6:47 AM CDT Alessandro Tovar MD LAB - CHEMISTRY OR DERABLES [address] [address], [facility] [phone] * PHOSPHORUS BLOOD (11/16/2020 6:27 AM CDT) Only the most recent of5 resultswithin the time period is included. Pathologist [facility] Phosphorus 3.2 2.3 - 4.7 mg/dL 11/16/2020 7:17 AM T [facility] Blood BLOOD SPECIMEN / Unknown Lab Venipuncture / Unknown 11/16/2020 6:27 AM CDT 11/16/2020 6:47 AM CDT Alessandro Tovar MD LAB - CHEMISTRY OR DERABLES [address] [address], [facility] [phone] * (ABNORMAL) HEPATIC FUNCTION PANEL (11/16/2020 6:27 AM CDT) Only the most recent of5 resultswithin the time period is included. Protein Total 6.0 6.0 - 8.3 g/dL 021 7:17 AM T [facility] Albumin 2.9(L) 3.4 - 5.0 g/dL 11/16/2020 7:17 AM [facility] Bilirubin Total 1.0 0.2 - 1.2 mg/dL 10/22 7:17 AM [facility] Bilirubin Conjugated 0.7(H) 0.1 - 0.5 mg/dL 11/16/2020 7:17 AM [facility] Bilirubin Unconjugated 0.3 Unconjugated Bilirubin is a calculated value: Reference ranges have not been established. mg/dL 11/16/2020 7:17 AM CDT [facility] Alkaline Phosphatase 127 40 - 150 Units/L 11/16/2020 7:17 AM CDT [facility] ALT 50 0 - 55 Units/L 11/16/2020 7:17 AM CDT [facility] AST 49(H) 5 - 34 Units/L 11/16/2020 7:17 AM [facility] Albumin/Globulin Ratio 0.9(L) 1.1 - 2.3 11/16/2020 7:17 AM CDT [facility] Blood BLOOD SPECIMEN / Unknown Lab Venipuncture / Unknown 11/16/2020 6:27 AM CDT 11/16/2020 6:47 AM CDT Alessandro Tovar MD LAB - CHEMISTRY OR DERABLES Performing Organization Address City/[facility]/ZIP Co de Phone Number [address] [address], [employer] [phone] * MAGNESIUM BLOOD (11/16/2020 6:27 AM CDT) Only the most recent of5 resultswithin the time period is included. Magnesium 1.7 1.6 - 2.6 mg/dL 11/16/2020 7:17 AM CDT [facility] Blood BLOOD SPECIMEN / Unknown Lab Venipuncture / Unknown 11/16/2020 6:27 AM CDT 11/16/2020 6:47 AM CDT Alessandro Tovar MD LAB - CHEMISTRY OR DERABLES Performing Organization Address [facility]/ZIP Co de Phone Number [address] [address], [employer] [phone] * PATHOLOGY TISSUE (11/15/2020 2:39 PM CDT) Case Report Surgical Pathology Report ? Case: [id number] ? Authorizing Provider: ??Rudy Houston MD ?Collected: ? 11/15/2020 02:39 PM ? Ordering Location: ? [facility] ACUTE ? Received: ?11/16/2020 05:13 AM ? Pathologist: ? Melva Ny MD ? Specimen: ?Gallbladder ? 11/18/2020 11:00 AM [facility] Final Diagnosis Gallbladder, cholecystectomy (A): - Chronic cholecystitis - Cholelithiasis 11/18/2020 11:00 AM [facility] Microscopic Description and Comment Microscopic examination substantiates the final diagnosis. 11/18/2020 11:00 AM [facility] Clinical History The patient is a 70 year-old woman with gallstone pancreatitis. 11/18/2020 11:00 AM [facility] Gross Description The requisition and [...] gallbladder wall thickness ranges from 0.3-0.5 cm. Scale Reclamation Tender sections are submitted in cassette A1. AR 11/18/2020 11:00 AM CDT [facility] Disclaimer The performance characteristics of all immunohistochemical and indirect immunofluorescence stains (if any) cited in this report were determined by the Histopathology Laboratory of [facility]. Some of these tests were developed by [...] attending (teaching) pathologist. 11/18/2020 11:00 AM CDT [facility] Embedded Images 11/18/2020 11:00 AM CDT [facility] Removal ENTIRE GALLBLADDER / Unknown 11/15/2020 2:39 PM CDT 11/16/2020 5:13 AM CDT Comment:Pre-op diagnosis: Acute pancreatitis, unspecified complication status, unspecified pancreatitis type [K85.90] Rudy Houston MD LAB - PATHOLOGY/CYTO LOGY ORDERABLES Performing Organization Address City/State/[facility] Co al Phone Number [facility] [address] [phone] * ETT LINE PERFORMABLE (11/15/2020 12:58 PM CDT) Narrative Effie Díaz APRN-CRNA - 11/15/2020 12:58 PM CDT Effie Díaz APRN-CRNA ? 11/15/2020 12:58 PM Endotracheal Tube Placement: ? Patient Location: OR. Intubation Event Date/Time: ??11/15/2020 12:43 PM Procedure: intubation ([id number]). Procedure Section: ?? Sedation: under general anesthesia. [...] period is included. Ventricular Rate 99 BPM [facility] MUSE QRS Duration ms 80 ms [facility] MUSE Q-T Interval ms 316 ms [facility] MUSE QTC Calculation (Bezet) 405 ms [facility] MUSE Calculated R [place] -6 degrees [facility] MUSE Calculated T [place] 0 degrees [facility] MUSE Interpretation EKG ATRIAL FIBRILLATION LOW VOLTAGE QRS CANNOT RULE OUT ANTERIOR INFARCT , AGE UNDETERMINED ABNORMAL ECG NO PREVIOUS ECGS AVAILABLE Confirmed by MD Jonatan., Elicia ([id number]) on 11/15/2020 12:53:12 PM [facility] MUSE 11/15/2020 10:4 9 AM CDT 11/15/2020 12:53 PM CDT Joe Crouch MD ECG ORDERABLES [facility] MUSE * ECHO COMPLETE (11/15/2020 9:52 AM [...] CDT) Antibody Screen NEG 4:57 AM CDT [facility] ABO Rh B POS 11/13/2020 4:57 AM CDT [facility] Blood Bank BLOOD SPECIMEN / Unknown Lab Venipuncture / Unknown 11/13/2020 3:18 AM CDT 11/13/2020 4:15 AM CDT Alessandro Tovar MD LAB - BLOOD BANK O RDERABLES [facility] [address] [place] [address], [facility] [phone] * SARS-COV-2 (COVID-19) IN HOUSE (11/12/2020 7:02 PM CDT) Pathologist [facility] COVID-19 PCR Not detected Not detected 11/13/2020 4:14 AM CDT [facility] Microbiology SPECIMEN FROM NASOPHARYNGEAL STRUCTURE / Unknown Collection / Unknown 11/12/2020 7:02 PM CDT 11/12/2020 7:12 PM CDT Narrative [facility] - 11/13/2020 4:14 AM CDT This nucleic acid amplification assay performance was validated by [facility]. This test has been authorized [...] Alessandro Tovar MD LAB - MICROBIOLOGY ORDERABLES [facility] [address] [place], [place] [address], [facility] [phone] * MRI ABDOMEN W MRCP WWO CONT [...] of pancreatitis. Dictated by Cristal Villaseñor MD (vice president biostatistics). Dr. TIA Marshall M.D. have personally reviewed [...] of pancreatitis. Dictated by Cristal Villaseñor MD (vice president biostatistics). I, Dr. TIA LOPES M.D. have personally [...] of pancreatitis. Dictated by Cristal Villaseñor MD (vice president biostatistics). Dr. TIA Marshall M.D. have personally reviewed and interpreted this examination/study. This report was electronically signed by TIA LOPES M.D. on11/12/2020 4:15 PM . Alessandro Tovar MD MR ORDERABLES * (ABNORMAL) DIFFERENTIAL MANUAL (11/12/2020 12:48 AM CDT) WBC (corrected for NRBC) 8.5 10? 3 /uL 11/12/2020 2:07 AM [facility] Total Cell Count 100 11/12/2020 2:07 AM [facility] Neutrophils Absolute Manual 5.27 1.60 - 7.00 10? 3 /uL 11/12/2020 2:07 AM [facility] Comment:(BANDS+SEGS) x WBC = NEUT # (ANC) Lymphocyte Absolute Manual 1.79 0.80 - 2.90 10? 3 /uL 11/12/2020 2:07 AM [facility] Monocytes Absolute Manual 1.19(H) 0.14 - 0.66 10? 3 /uL 11/12/2020 2:07 AM [facility] Eosinophils Absolute Manual 0.26(H) 0.00 - 0.22 10? 3 /uL 11/12/2020 2:07 AM [facility] Band % Manual 4 0 - 10 % 11/12/2020 2:07 AM [facility] Neutrophil % Manual 58 30 - 60 % 11/12/2020 2:07 AM [facility] Lymphocyte % Manual 21 20 - 45 % 11/12/2020 2:07 AM [facility] Monocytes % Manual 14(H) 2 - 10 % 11/12/2020 2:07 AM [facility] Eosinophils % Manual 3 1 - 6 % 11/12/2020 2:07 AM [facility] Platelet Estimate Adequate Adequate 11/12/2020 2:07 AM [facility] RBC Morphology Normal 11/12/2020 2:07 AM [facility] Blood BLOOD SPECIMEN / Unknown Venipuncture / Unknown 11/12/2020 12:48 AM CDT 11/12/2020 12:52 AM CDT Alessandro Tovar MD LAB - HEMATOLOGY O RDERABLES [facility] [address] [place] [address], [facility] [phone] * LIPASE BLOOD (11/12/2020 12:48 AM CDT) Lipase 67 8 - 78 Units/L 11/12/2020 1:18 AM CDT [facility] Blood BLOOD SPECIMEN / Unknown Venipuncture / Unknown 11/12/2020 12:48 AM CDT 11/12/2020 12:52 AM CDT Alessandro Tovar MD LAB - CHEMISTRY OR DERABLES [address] [address], [facility] [phone]
--- OUTSIDE RECORDS SUMMARY | 2024-08-27 12:19 | XMS_ITS | Referral Summary ---
Author Organization [facility] Address [address] [place] [address] Care Team Providers Care [employer] Assistant Manager Name Role Phone Unavailable Primary Care Provider Unavailabl e Source Comments [facility],non-owned Affiliates and Associated Physician Practices is amultiple site organization consisting of ambulatory clinics and hospital sitesin [place], [place], [place] and [place]. This disclosure is being madepursuant to the Care Everywhere program and may not contain all information available regarding this patient. Last updated 18.[facility] Allergies Active Allergy Reactions Criticality Noted Date [...] 7 - 26 mg/dL 11/16/2020 7:16 AM [facility] Creatinine 0.7 0.6 - 1.2 mg/dL 11/16/2020 7:16 AM [facility] Sodium 132(L) 136 - 145 mmol/L 11/16/2020 7:16 AM [facility] Potassium 3.8 3.5 - 4.5 mmol/L 11/16/2020 7:16 AM [facility] Chloride 102 98 - 107 mmol/L 11/16/2020 7:16 AM [facility] CO2 22 22 - 29 mmol/L 11/16/2020 7:16 AM [facility] Glucose 125(H) 70 - 115 mg/dL 11/16/2020 7:16 AM [facility] Calcium 8.5 8.4 - 10.2 mg/dL 11/16/2020 7:16 AM [facility] Anion Gap 12 8 - 18 11/16/2020 7:16 AM [facility] BUN/Creatinine Ratio 10 7 - 23 11/16/2020 7:16 AM [facility] Osmolality Calculated 273 270 - 300 mOsm/kg 11/16/2020 7:16 AM [facility] eGFR >60 >60 mL/min/1.7 3 m2 11/16/2020 7:16 AM CDT [facility] Blood BLOOD SPECIMEN / Unknown Lab Venipuncture / Unknown 11/16/2020 6:27 AM CDT 11/16/2020 6:47 AM CDT Alessandro Tovar MD LAB - CHEMISTRY OR DERABLES Performing Organization Address City/State/[facility] Co de Phone Number [facility] [address] [place] [address], [facility] [phone] from Last 3 Months or Most Recently Relevant to Health Maintenance
--- OUTSIDE RECORDS SUMMARY | 2024-08-27 12:19 | XMS_ITS | Clinical Summary ---
Author Organization [facility] Address [address] [place] [address] Care Team Providers Care [employer] Associate Name Role Phone Unavailable Primary Care Provider Unavailabl e Source Comments [facility],non-owned Affiliates and Associated Physician Practices is amultiple site organization consisting of ambulatory clinics and hospital sitesin [place], [place], [place] and [place]. This disclosure is being madepursuant to the Care Everywhere program and may not contain all information available regarding this patient. Last updated 18.[facility] Allergies Active Allergy Reactions Criticality [...] - 26 mg/dL 11/16/2020 7:16 AM CDT [facility] Creatinine 0.7 0.6 - 1.2 mg/dL 11/16/2020 7:16 AM [facility] Sodium 132(L) 136 - 145 mmol/L 11/16/2020 7:16 AM [facility] Potassium 3.8 3.5 - 4.5 mmol/L 11/16/2020 7:16 AM [facility] Chloride 102 98 - 107 mmol/L 11/16/2020 7:16 AM [facility] CO2 22 22 - 29 mmol/L 11/16/2020 7:16 AM [facility] Glucose 125(H) 70 - 115 mg/dL 11/16/2020 7:16 AM [facility] Calcium 8.5 8.4 - 10.2 mg/dL 11/16/2020 7:16 AM [facility] Anion Gap 12 8 - 18 11/16/2020 7:16 AM [facility] BUN/Creatinine Ratio 10 7 - 23 11/16/2020 7:16 AM [facility] Osmolality Calculated 273 270 - 300 mOsm/kg 11/16/2020 7:16 AM [facility] eGFR >60 >60 mL/min/1.7 3 m2 11/16/2020 7:16 AM [facility] Blood BLOOD SPECIMEN / Unknown Lab Venipuncture / Unknown 11/16/2020 6:27 AM CDT 11/16/2020 6:47 AM T Alessandro Tovar MD LAB - CHEMISTRY OR DERABLES [facility] [address] [place] [address], [facility] [phone] from Last 3 Months or Most Recently Relevant to Health Maintenance
[2024-08-27 15:10] LABS: Anion Gap 10 mmol/L (4-12); Blood Urea Nitrogen 8 mg/dL (7-17); Calcium 9.3 mg/dL (8.4-10.2); Carbon Dioxide 24 mmol/L (22-30); Chloride 92 mmol/L (98-107); Estimated Glomerular Filt Rate > 60; Glucose 100 mg/dL (65-110); Potassium 4.9 mmol/L (3.4-5.0); Sodium 126 mmol/L (137-145)
== END 2024-08-27 10:46 | disposition home or self-care (01) ==
LOC: ANHGOSHLAB 10:46
PROVIDERS: PCP Family Medicine; Visit Provider Family Medicine
DX: E87.1 Hypo-osmolality and hyponatremia (principal)
CPT/HCPCS: 36415; 80048